=== PATIENT | female | born 1930 | race Caucasian/White ===

== ENCOUNTER 2017-11-05 14:31 | Inpatient (IN) | payer MEDICARE, MEDICAID ==
[2017-11-05 14:31] VITALS: BMI 28.3
--- NOTE | 2017-11-05 14:57 | ED PDOC ---
Arrival/HPI - General Chief Complaint: GI Problem Time Seen by Provider: 11/05/17 14:39 Historian: Patient, Family - History of Present Illness Narrative History of Present Illness (Text): 87 year old female presents with episodes on NBNB vomiting last night around 10pm, decreased appetite, and abdominal pain. Patient also has some mild shortness of breath which began last night. Currently she states she is nauseas. Patient denies chest pain, fever, chills, or any other complains. 11/05/17 15:25 Time/Duration: 24 hours Symptom Onset: Gradual Past Medical History - Provider Review Nursing Documentation Reviewed: Yes - Infectious Disease Hx of Infectious Diseases: None - Tetanus Immunization Tetanus Immunization: Unknown - Cardiac Hx Congestive Heart Failure: Yes - Pulmonary Hx Asthma: Yes Hx Chronic Obstructive Pulmonary Disease (COPD): Yes - Neurological Hx Dementia: Yes Hx Migraine: Yes Hx Seizures: Yes (on Depakote) - HEENT Hx HEENT Disorder: No - Renal Hx Renal Disorder: No - Endocrine/Metabolic Hx Endocrine Disorders: No - Hematological/Oncological Hx Blood Disorders: No - Integumentary Hx Dermatological Disorder: No - Musculoskeletal/Rheumatological Hx Unsteady Gait: Yes Other/Comment: Recent falls - Gastrointestinal Hx Gastrointestinal Disorders: No - Genitourinary/Gynecological Hx Incontinence: Yes - Psychiatric Hx Anxiety: Yes Hx Depression: Yes Hx Schizophrenia: Yes Hx Substance Use: No - Surgical History Hx Eye Surgery: Yes Hx Orthopedic Surgery: Yes (left shldr, left hand) Other/Comment: Hernia repair - Anesthesia Hx Anesthesia Reactions: No Hx Malignant Hyperthermia: No - Suicidal Assessment Feels Threatened In Home Enviroment: No Family/Social History - Physician Review Nursing Documentation Reviewed: Yes Family/Social History: No Known Family HX Smoking Status: Never Smoked Hx Alcohol Use: No Hx Substance Use: No Hx Substance Use Treatment: No Allergies/Home Meds Allergies/Adverse Reactions: Allergies moxifloxacin Allergy (Verified 11/05/17 14:43) ITCHING Home Medications: Home Meds Medication Instructions Recorded Confirmed Divalproex [Depakote] 250 mg PO BID 01/18/12 08/06/15 Ezetimibe [Zetia] 10 mg PO DAILY 01/18/12 08/06/15 Memantine [Namenda] 10 mg PO BID 01/18/12 08/06/15 Carvedilol [Coreg] 3.125 mg PO DAILY 07/14/12 08/06/15 Albuterol Sulfate [Proair Hfa] 0.09 mg IH Q4 PRN 09/11/12 08/06/15 Ipratropium/Albuterol Sulfate 1 units NEB Q4 PRN 09/11/12 08/06/15 [Duoneb 3 mg/3 ml-0.5 mg/3 ml 3 ml] ARIPiprazole [Abilify] 5 mg PO DAILY 08/06/15 08/06/15 Clonazepam [Klonopin] 0.5 mg PO HS 08/06/15 08/06/15 Furosemide [Lasix] 40 mg PO DAILY 08/06/15 08/06/15 Isosorbide Dinitrate [Isosorbide 30 mg PO DAILY 08/06/15 08/06/15 Dinitrate] Losartan [Cozaar] 25 mg PO DAILY 08/06/15 08/06/15 Pantoprazole [Protonix EC Tab] 40 mg PO DAILY 08/06/15 08/06/15 Sertraline HCl [Zoloft] 75 mg PO DAILY 08/06/15 08/06/15 Solifenacin Succinate [Vesicare] 10 mg PO DAILY 08/06/15 08/06/15 Review of Systems - Review of Systems Constitutional: Normal. absent: Fatigue, Fevers Eyes: Normal. absent: Vision Changes, Photophobia ENT: Normal Respiratory: SOB. absent: Cough Cardiovascular: absent: Chest Pain, Palpitations Gastrointestinal: Abdominal Pain, Nausea, Vomiting. absent: Diarrhea, Hematochezia, Hematemesis Genitourinary Female: Normal Musculoskeletal: Normal Skin: Normal Neurological: Normal Physical Exam Vital Signs Reviewed: Yes Vital Signs Temp Pulse Resp BP Pulse Ox 11/05/17 17:22 76 18 126/66 93 L 11/05/17 15:45 86 18 99/61 L 92 L 11/05/17 14:37 98.7 F 99 H 17 112/71 94 L 11/05/17 14:31 98.7 F 99 H 17 112/71 94 L Temperature: Afebrile Blood Pressure: Normal Pulse: Tachycardic Respiratory Rate: Normal Appearance: Positive for: Well-Appearing, Non-Toxic, Comfortable Pain Distress: None Mental Status: Positive for: Alert and Oriented X 3 - Systems Exam Head: Present: Atraumatic, Normocephalic Pupils: Present: PERRL Extroacular Muscles: Present: EOMI Conjunctiva: Present: Normal Mouth: Present: Moist Mucous Membranes Neck: Present: Normal Range of Motion Respiratory/Chest: Present: Good Air Exchange, Other (crakcles) Cardiovascular: Present: Regular Rate and Rhythm, Normal S1, S2 Abdomen: Present: Tenderness. No: Distention, Guarding Upper Extremity: No: Edema Lower Extremity: No: Edema Neurological: Present: GCS=15, CN II-XII Intact Psychiatric: Present: Alert, Oriented x 3 Medical Decision Making ED Course and Treatment: Plan -CBC, CMP, BNP, Cardiac ISO -EKG, Chest xray 11/05/17 15:47 Chest xray showing no active disease CT pending abdomen pelvis 11/05/17 16:36 CT abdomen and pelvis shows distended gallbladder with pericholecystic fluid 11/05/17 17:47 Patient will be admitted to Hospitalist, spoke to Dr. King. Surgery, Dr. Soriano consulted, vice president medical affairs Adenike contacted and will see patient 11/05/17 18:04 - Lab Interpretations Lab Results: 11/05/17 15:30 11/05/17 15:30 Lab Results 11/05/17 17:18: Urine Color Yellow, Urine Appearance Clear, Urine pH 7.5, Ur Specific [place] 1.010, Urine Protein Negative, Urine Glucose (UA) Negative, Urine Ketones Negative, Urine Blood Trace-intact H, Urine Nitrate Negative, Urine Bilirubin Negative, Urine Urobilinogen 0.2, Ur Leukocyte Esterase Negative , Urine RBC 2 - 5, Urine WBC 0 - 2, Ur Epithelial Cells 3 - 4, Urine Bacteria Few 11/05/17 15:30: Valproic Acid 16 L 11/05/17 15:30: Sodium 143, Potassium 3.9, Chloride 103, Carbon Dioxide 28, Anion Gap 15, BUN 13, Creatinine 0.6 L, Est GFR ( Amer) > 60, Est GFR ( Non-Af Amer) > 60, Random Glucose 103, Calcium 9.1, Magnesium 1.8, Total Bilirubin 0.5, AST 29, ALT 22, Alkaline Phosphatase 76, Lactate Dehydrogenase 465, Total Creatine Kinase 55, Troponin I < 0.01, NT-Pro-B Natriuret Pep 776 H, Total Protein 7.5, Albumin 4.0, Globulin 3.5, Albumin/Globulin Ratio 1.1, Lipase 11 L 11/05/17 15:30: PT 11.9, INR 1.04, APTT 24.8 L 11/05/17 15:30: WBC 13.9 H D, RBC 4.54, Hgb 13.8, Hct 41.6, MCV 91.6, MCH 30.4, MCHC 33.2, RDW 14.4, Plt Count 214, MPV 10.1, Gran % 64.1, Lymph % (Auto) 26.3, [place] % (Auto) 9.4 H, Eos % (Auto) 0.1 L, Baso % (Auto) 0.1, Gran # 8.90 H, Lymph # (Auto) 3.7 H, [place] # (Auto) 1.3 H, Eos # (Auto) 0.0, Baso # (Auto) 0.01 - RAD Interpretation Radiology Orders: 11/05/17 15:14 CHEST PORTABLE [RAD] Stat 11/05/17 16:10 ABD & PELVIS IV CONTRAST ONLY [CT] Stat - Medication Orders Current Medication Orders: Piperacillin Sod/Tazobactam Sod (Zosyn 3.375 In Ns 100ml) 100 mls @ 200 mls/hr IVPB STAT STA PRN Reason: Protocol Stop: 11/05/17 18:11 Discontinued Medications Sodium Chloride (Sodium Chloride 0.9%) 500 mls @ 999 mls/hr IV .Q31M STA Stop: 11/05/17 16:11 Last Admin: 11/05/17 16:15 Dose: 999 mls/hr eMAR Start Stop Document 11/05/17 16:15 OCS (Rec: 11/05/17 16:35 OCS [id number]) Intravenous Solution Start Date 11/05/17 Start Time 16:00 End Date 11/05/17 End time 16:30 Total Infusion Time 30 Ondansetron HCl (Zofran Inj) 4 mg IVP STAT STA Stop: 11/05/17 15:16 Last Admin: 11/05/17 15:29 Dose: 4 mg IVP Administration Document 11/05/17 15:29 SRE (Rec: 11/05/17 15:29 SRE [id number]) Charges for Administration # of IVP Administrations 1 Pantoprazole Sodium (Protonix Inj) 40 mg IVP STAT STA Stop: 11/05/17 15:29 Last Admin: 11/05/17 15:39 Dose: 40 mg IVP Administration Document 11/05/17 15:39 SRE (Rec: 11/05/17 15:40 SRE [id number]) Charges for Administration # of IVP Administrations 1 Disposition/Present on Arrival - Present on Arrival Any Indicators Present on Arrival: No History of DVT/PE: No History of Uncontrolled Diabetes: No Urinary Catheter: No History of Decub. Ulcer: No History Surgical Site Infection Following: None - Disposition Have Diagnosis and Disposition been Completed?: Yes Diagnosis: Cholecystitis Disposition: HOSPITALIZED Disposition Time: 18:06 Condition: FAIR Forms: [employer] (Thai)
[2017-11-05] MEDS ORDERED: Sodium Chloride 0.9% 500 ML IV STA (15:41)
[2017-11-05 15:50] LABS: BASO # 0.01 K/mm3 (0.0-2.0); BASO % 0.1 % (0.0-3.0); EOS % 0.1 % (1.5-5.0); GRAN # 8.9 (1.4-6.5); GRAN % 64.1 % (50.0-68.0); HEMOGLOBIN 13.8 g/dL (12.0-16.0); LYMPH # 3.7 (1.2-3.4); LYMPH % 26.3 % (22.0-35.0); MEAN CELL VOLUME 91.6 fl (80.0-105.0); MEAN CORPUSCULAR HEMOGLOBIN 30.4 pg (25.0-35.0); MEAN CORPUSCULAR HGB CONC 33.2 g/dl (31.0-37.0); MEAN PLATELET VOLUME 10.1 fl (7.0-11.0); MONO # 1.3 (0.1-0.6); MONO % 9.4 % (1.0-6.0); RBC 4.54 10^6/uL (3.5-6.1); RED CELL DISTRIBUTION WIDTH 14.4 % (11.5-14.5); WHITE BLOOD COUNT 13.9 10^3/ul (4.5-11.0)
[2017-11-05 15:52] LABS: ALB/GLOB RATIO 1.1 (1.1-1.8); ALT/SGPT 22 U/L (7-56); AST/SGOT 29 U/L (14-36); BLOOD UREA NITROGEN 13 mg/dL (7-21); CALCIUM 9.1 mg/dL (8.4-10.5); GFR AFRICAN-AMERICAN > 60; GFR NON-AFRICAN AMERICAN > 60
[2017-11-05 16:03] LABS: B-TYPE NATRIURETIC PEPTIDE 776 pg/mL (0-450); TROPONIN I < 0.01 ng/mL
[2017-11-05 16:04] LABS: INR 1.04 (0.93-1.08); PARTIAL THROMBOPLASTIN TIME 24.8 Seconds (25.1-36.5); PROTHROMBIN TIME 11.9 SECONDS (9.4-12.5)
[2017-11-05 16:06] LABS: LIPASE 11 U/L (23-300)
--- NOTE | 2017-11-05 16:13 | RAD ---
HISTORY: abd pain sob COMPARISON: 12/19/2012 FINDINGS: LUNGS: No active pulmonary disease. PLEURA: No significant pleural effusion identified, no pneumothorax apparent. CARDIOVASCULAR: Normal. OSSEOUS STRUCTURES: No significant abnormalities. VISUALIZED UPPER ABDOMEN: Normal. OTHER FINDINGS: None. IMPRESSION: No active disease.
[2017-11-05] MEDS ORDERED: Iohexol 350 MG/100 ML VIAL ONE (16:24)
[2017-11-05 17:33] LABS: PH,URINE 7.5 (4.7-8.0); URINE BILIRUBIN NEGATIVE (NEGATIVE); URINE BLOOD TRACE-INTACT (NEGATIVE); URINE GLUCOSE (UA) NEGATIVE (NEGATIVE); URINE LEUKOCYTE ESTERASE NEGATIVE Leu/uL (NEGATIVE); URINE PROTEIN NEGATIVE mg/dL (<30 mg/dL); URINE UROBILINOGEN 0.2 E.U./dL (<1 E.U./dL)
[2017-11-05 17:34] LABS: URINE APPEARANCE CLEAR (CLEAR); URINE COLOR YELLOW (YELLOW)
[2017-11-05 17:36] LABS: URINE BACTERIA FEW (NEG); URINE WBC 0 - 2 /hpf (0-6)
[2017-11-05] MEDS ORDERED: Piperacillin/Tazobact 3.375 gm 100 ML IVPB STA (17:42)
--- NOTE | 2017-11-05 17:43 | CT ---
PROCEDURE: CT Abdomen and Pelvis with contrast HISTORY: Abdominal pain and vomiting. COMPARISON: 01/24/2012 abdominal ultrasound TECHNIQUE: Contrast dose: 100 cc Omnipaque 350. Radiation dose: Total exam DLP = 783.22 mGy-cm. This CT exam was performed using one or more of the following dose reduction techniques: Automated exposure control, adjustment of the mA and/or kV according to patient size, and/or use of iterative reconstruction technique. FINDINGS: LOWER THORAX: Unremarkable. LIVER: Unremarkable. No gross lesion or ductal dilatation. GALLBLADDER AND BILE DUCTS: Distended Gallbladder, small gallbladder calculi identified. Trace pericholecystic fluid noted. PANCREAS: Unremarkable. No gross lesion or ductal dilatation. SPLEEN: Unremarkable. ADRENALS: Unremarkable. No mass. KIDNEYS AND URETERS: Unremarkable. No hydronephrosis. No solid mass. Incidental finding(s): Innumerable bilateral renal cysts the largest in the lower pole of the left kidney measures 5.1 x 6 cm with peripheral rim of calcification. VASCULATURE: Unremarkable. No aortic aneurysm. BOWEL: Unremarkable. No obstruction. No gross mural thickening. APPENDIX: Normal appendix. PERITONEUM: Unremarkable. No free fluid. No free air. LYMPH NODES: Unremarkable. No enlarged lymph nodes. BLADDER: Unremarkable. REPRODUCTIVE: Unremarkable. BONES: No acute fracture. Multilevel degenerative changes. OTHER FINDINGS: None. IMPRESSION: Distended gallbladder, trace pericholecystic fluid. Gallstones identified, confirmed on a prior ultrasound 01/24/2012. Additional benign and/or incidental findings described above.
--- NOTE | 2017-11-05 18:59 | CP.PCM.CON ---
History of Present Illness - History of Present Illness History of Present Illness: General surgery consult note for Dr. Modesto Jeong, PGY-1 Pt S & E at bedside at 1815 87F w/PMH sig for cholelithiasis consulted for abdominal pain x 1 month. Pain is epigastric, non radiating, intermittent, "strong" usually occurring after eating ice cream +/- cake in the evenings, also worsened when constipated. Admits to nightly emesis as well. On evening ART DIRECTOR, pt had multiple episodes of emesis lasting for 5 hrs (food stuff, then nb, bilious). Pt was given seltzer water without relief. Admits to chronic constipation (BM every 1-2 weeks on senna at home), urinary frequency. Denies F & C, chest pain, SOB, dysuria, hematuria, hematemesis, hematochezia, other complaints. In ED- CT abdomen w/distended gallbladder, trace pericholecystic fluid. Gallstones identified, confirmed on a prior ultrasound 01/24/2012. Mild leukocytosis of 13.9. Afebrile. LFTs WNL. PMH: Cholelithiasis, CHF, COPD/asthma, recurrent UTIs, emphysema, depression, HLD, dementia, seizure d/o, hypothyroidism PSH: Ventral hernia repair, Left inguinal hernia repair, left shoulder sx, left hand sx All: Moxifloxacin SH: Hx tobacco use, hx ETOH use, denies illicit drug use; lives with daughter PMD: Tracy Ramsey Review of Systems - Review of Systems All systems: reviewed and no additional remarkable complaints except - Constitutional Constitutional: absent: Chills, Fever - EENT Ears: absent: Dizziness Nose/Mouth/Throat: absent: Sore Throat - Cardiovascular Cardiovascular: absent: Chest Pain - Respiratory Respiratory: absent: Cough - Gastrointestinal Gastrointestinal: Abdominal Pain, Constipation, Nausea, Vomiting. absent: Change in Bowel Habits, Cramping, Diarrhea, Hematemesis, Hematochezia, Melena - Genitourinary Genitourinary: Urinary Frequency. absent: Dysuria, Hematuria - Musculoskeletal Musculoskeletal: absent: Back Pain - Integumentary Integumentary: absent: Rash - Neurological Neurological: absent: Dizziness, Weakness - Psychiatric Psychiatric: absent: Change in Appetite Past Patient History - Infectious Disease Hx of Infectious Diseases: None - Tetanus Immunizations Tetanus Immunization: Unknown - Past Social History Smoking Status: Never Smoked - CARDIAC Hx Congestive Heart Failure: Yes - PULMONARY Hx Asthma: Yes Hx Chronic Obstructive Pulmonary Disease (COPD): Yes - NEUROLOGICAL Hx Dementia: Yes Hx Migraine: Yes Hx Seizures: Yes (on Depakote) - HEENT Hx HEENT Problems: No - RENAL Hx Chronic Kidney Disease: No - ENDOCRINE/METABOLIC Hx Endocrine Disorders: No - HEMATOLOGICAL/ONCOLOGICAL Hx Blood Disorders: No - INTEGUMENTARY Hx Dermatological Problems: No - MUSCULOSKELETAL/RHEUMATOLOGICAL Hx Unsteady Gait: Yes Other/Comment: Recent falls - GASTROINTESTINAL Hx Gastrointestinal Disorders: No - GENITOURINARY/GYNECOLOGICAL Hx Incontinence: Yes - PSYCHIATRIC Hx Anxiety: Yes Hx Depression: Yes Hx Schizophrenia: Yes Hx Substance Use: No - SURGICAL HISTORY Hx Eye Surgery: Yes Hx Orthopedic Surgery: Yes (left shldr, left hand) Other/Comment: Hernia repair - ANESTHESIA Hx Anesthesia Reactions: No Hx Malignant Hyperthermia: No Meds Allergies/Adverse Reactions: Allergies Allergy/AdvReac Type Severity Reaction Status Date / Time moxifloxacin Allergy ITCHING Verified 11/05/17 14:43 - Medications Medications: Current Medications Acetaminophen (Tylenol 325mg Tab) 650 mg PO Q6H PRN PRN Reason: Pain, moderate (4-7) Ondansetron HCl (Zofran Inj) 4 mg IVP Q6H PRN PRN Reason: Nausea/Vomiting Physical Exam - Constitutional Appears: Non-toxic, No Acute Distress - Head Exam Head Exam: ATRAUMATIC, NORMAL INSPECTION, NORMOCEPHALIC - Eye Exam Eye Exam: EOMI, Normal appearance - ENT Exam ENT Exam: Mucous Membranes Moist, Normal Exam - Neck Exam Neck exam: Positive for: Full Rom, Normal Inspection - Respiratory Exam Respiratory Exam: Clear to Auscultation Bilateral, NORMAL BREATHING PATTERN. absent: Rales, Rhonchi, Wheezes, Respiratory Distress - Cardiovascular Exam Cardiovascular Exam: REGULAR RHYTHM, +S1, +S2 - GI/Abdominal Exam GI & Abdominal Exam: Normal Bowel Sounds, Soft. absent: Distended (obese), Firm , Guarding, Hernia, Rebound, Rigid, Tenderness - Rectal Exam Rectal Exam: Hemorrhoids. absent: Fecal Impaction - Extremities Exam Extremities exam: Positive for: normal inspection. Negative for: pedal edema - Neurological Exam Neurological exam: Alert, CN II-XII Intact - Psychiatric Exam Psychiatric exam: Normal Affect, Normal Mood - Skin Skin Exam: Dry, Intact, Normal Color, Warm Additional comments: well healed midline upper abdominal scar, well healed left inguinal area scar Results - Vital Signs Recent Vital Signs: Last Vital Signs Temp 98.7 F 11/05/17 14:37 Pulse 76 11/05/17 17:22 Resp 18 11/05/17 17:22 BP 126/66 11/05/17 17:22 Pulse Ox 93 L 11/05/17 17:22 - Labs Result Diagrams: 11/05/17 15:30 11/05/17 15:30 Labs: Laboratory Results - last 24 hr 11/05/17 11/05/17 11/05/17 15:30 15:30 15:30 WBC 13.9 H D RBC 4.54 Hgb 13.8 Hct 41.6 MCV 91.6 MCH 30.4 MCHC 33.2 RDW 14.4 Plt Count 214 MPV 10.1 Gran % 64.1 Lymph % (Auto) 26.3 [place] % (Auto) 9.4 H Eos % (Auto) 0.1 L Baso % (Auto) 0.1 Gran # 8.90 H Lymph # (Auto) 3.7 H [place] # (Auto) 1.3 H Eos # (Auto) 0.0 Baso # (Auto) 0.01 PT 11.9 INR 1.04 APTT 24.8 L Sodium 143 Potassium 3.9 Chloride 103 Carbon Dioxide 28 Anion Gap 15 BUN 13 Creatinine 0.6 L Est GFR ( Amer) > 60 Est GFR (Non-Af Amer) > 60 Random Glucose 103 Calcium 9.1 Magnesium 1.8 Total Bilirubin 0.5 AST 29 ALT 22 Alkaline Phosphatase 76 Lactate Dehydrogenase 465 Total Creatine Kinase 55 Troponin I < 0.01 NT-Pro-B Natriuret Pep 776 H Total Protein 7.5 Albumin 4.0 Globulin 3.5 Albumin/Globulin Ratio 1.1 Lipase 11 L Urine Color Urine Appearance Urine pH Ur Specific [place] Urine Protein Urine Glucose (UA) Urine Ketones Urine Blood Urine Nitrate Urine Bilirubin Urine Urobilinogen Ur Leukocyte Esterase Urine RBC Urine WBC Ur Epithelial Cells Urine Bacteria Valproic Acid 11/05/17 11/05/17 15:30 17:18 WBC RBC Hgb Hct MCV MCH MCHC RDW Plt Count MPV Gran % Lymph % (Auto) [place] % (Auto) Eos % (Auto) Baso % (Auto) Gran # Lymph # (Auto) [place] # (Auto) Eos # (Auto) Baso # (Auto) PT INR APTT Sodium Potassium Chloride Carbon Dioxide Anion Gap BUN Creatinine Est GFR ( Amer) Est GFR (Non-Af Amer) Random Glucose Calcium Magnesium Total Bilirubin AST ALT Alkaline Phosphatase Lactate Dehydrogenase Total Creatine Kinase Troponin I NT-Pro-B Natriuret Pep Total Protein Albumin Globulin Albumin/Globulin Ratio Lipase Urine Color Yellow Urine Appearance Clear Urine pH 7.5 Ur Specific [place] 1.010 Urine Protein Negative Urine Glucose (UA) Negative Urine Ketones Negative Urine Blood Trace-intact H Urine Nitrate Negative Urine Bilirubin Negative Urine Urobilinogen 0.2 Ur Leukocyte Esterase Negative Urine RBC 2 - 5 Urine WBC 0 - 2 Ur Epithelial Cells 3 - 4 Urine Bacteria Few Valproic Acid 16 L Assessment & Plan - Assessment and Plan (Free Text) Assessment: 87F w/PMH sig for cholelithiasis consulted for abdominal pain due to symptomatic cholelithiasis Plan: FU Ab U/S ABx CLD Anti-emetic Pain control Further recs pending attending evaluation RADHA attending Adenike, PGY-1 - Date & Time Date: 11/05/17 Time: 19:30
--- NOTE | 2017-11-05 20:15 | CP.PCM.HP ---
<Giuseppe Guzman - Last Filed: 11/05/17 20:46> History of Present Illness - History of Present Illness History of Present Illness: CC: Mid epigastric/RUQ pain HPI: Patient is an 87 year old female with past medical history significant for cholelthisiasis, CHF unknown EF, COPD/asthma, recurrent UTIs, emphysema, depression, HLD, dementia, seizure disorder, and hypothyroidism who presents to [facility] ED with complaints of mid epigastric pain/right upper quadrant pain described as intermittent, non-radiating, associated with fatty meals. At time patient was unable to assign pain scale. Patient indicates nausea and vomiting episodes. Recently over past 12 hours patient described multiple vomiting episodes with production of non bilious non bloody vomit. Patient was able to tolerate some clear liquids and oral medications since worsening of pain. Patient denies chest pain, fever, chills, shortness of breath, dysuria, hematuria, hematemesis, hematochezia, weakness, orthopnea, swelling of lower extremities. In ED patient had abdominal pelvis CT showing distension of gallbladder, trace pericholecystic fluid, gallstones. As well as found to have slight leukocytosis of 13.9. Patient was given zosyn in ED. ECG showed LVH with HR of 90 bpm and left axis deviation. PMH: As above PSH: Ventral hernia repair, Left infuinal hernia repair, Left shoulder surgery, left hand surgery SOCHx: Tobacco: Former ETOH: Denies, ID: Denies, Lives currently with daughter who is POA ALL: Moxifloxacin MEDS: MAR reviewed PMD: Tracy Ramsey Present on Admission - Present on Admission Any Indicators Present on Admission: No Review of Systems - Review of Systems All systems: reviewed and no additional remarkable complaints except (as mentioned in HPI) Past Patient History - Infectious Disease Hx of Infectious Diseases: None - Tetanus Immunizations Tetanus Immunization: Unknown - Past Social History Smoking Status: Former Smoker Alcohol: None Drugs: Denies - CARDIAC Hx Congestive Heart Failure: Yes - PULMONARY Hx Asthma: Yes Hx Chronic Obstructive Pulmonary Disease (COPD): Yes - NEUROLOGICAL Hx Dementia: Yes Hx Migraine: Yes Hx Seizures: Yes (on Depakote) - HEENT Hx HEENT Problems: No - RENAL Hx Chronic Kidney Disease: No - ENDOCRINE/METABOLIC Hx Endocrine Disorders: No - HEMATOLOGICAL/ONCOLOGICAL Hx Blood Disorders: No - INTEGUMENTARY Hx Dermatological Problems: No - MUSCULOSKELETAL/RHEUMATOLOGICAL Hx Unsteady Gait: Yes Other/Comment: Recent falls - GASTROINTESTINAL Hx Gastrointestinal Disorders: No - GENITOURINARY/GYNECOLOGICAL Hx Incontinence: Yes - PSYCHIATRIC Hx Anxiety: Yes Hx Depression: Yes Hx Schizophrenia: Yes Hx Substance Use: No - SURGICAL HISTORY Hx Eye Surgery: Yes Hx Orthopedic Surgery: Yes (left shldr, left hand) Other/Comment: Hernia repair - ANESTHESIA Hx Anesthesia Reactions: No Hx Malignant Hyperthermia: No Meds Allergies/Adverse Reactions: Allergies Allergy/AdvReac Type Severity Reaction Status Date / Time moxifloxacin Allergy ITCHING Verified 11/05/17 14:43 Physical Exam - Constitutional Appears: Non-toxic, No Acute Distress - Head Exam Head Exam: ATRAUMATIC, NORMAL INSPECTION, NORMOCEPHALIC - Eye Exam Eye Exam: EOMI, PERRL - Neck Exam Neck exam: Positive for: Full Rom. Negative for: Lymphadenopathy, Meningismus - Respiratory Exam Respiratory Exam: Clear to Auscultation Bilateral, Rales (mild), NORMAL BREATHING PATTERN. absent: Rhonchi, Wheezes - Cardiovascular Exam Cardiovascular Exam: REGULAR RHYTHM, +S1, +S2 - GI/Abdominal Exam GI & Abdominal Exam: Normal Bowel Sounds, Soft, Tenderness (mid epigastric, RUQ with palpation ). absent: Distended, Firm, Guarding, Rigid - Extremities Exam Extremities exam: Positive for: normal capillary refill, pedal pulses present. Negative for: calf tenderness, pedal edema, tenderness - Back Exam Back exam: absent: CVA tenderness (L), CVA tenderness (R) - Neurological Exam Neurological exam: Alert, Oriented x3 Additional comments: Motor and sensory grossly intact - Psychiatric Exam Psychiatric exam: Normal Affect, Normal Mood - Skin Skin Exam: Dry, Warm Results - Vital Signs Recent Vital Signs: Last Vital Signs Temp 98.7 F 11/05/17 14:37 Pulse 76 11/05/17 17:22 Resp 18 11/05/17 17:22 BP 126/66 11/05/17 17:22 Pulse Ox 93 L 11/05/17 17:22 - Labs Result Diagrams: 11/05/17 15:30 11/05/17 15:30 Assessment & Plan - Assessment and Plan (Free Text) Assessment: 87 year old female with past medical history significant for cholelthisiasis, CHF unknown EF, COPD/asthma, recurrent UTIs, emphysema, depression, HLD, dementia, seizure disorder, and hypothyroidism with symptomatic cholelithiasis, mild leukocytosis and abdominal/pelvis CT evidence of gallbladder distention, trace pericholecystic fluid and gallstones. General surgery is consulted as well as Infectious disease. Plan: Cholelithiasis with cholecystitis - Abdominal/Pelvis CT: Gallbladder distention, trace pericholecystic fluid, gallstones - Elevated WBC of 13.9 - Tenderness to palpation of RUQ/mid epigastric area - General Surgery consult - Abdominal US - Diet clear liquids - Zosyn and MILLER abx - ID consult - NPO after midnight - Zofran 4mg Q4H Hx of CHF with unknown ejection fraction - Patient family unsure of last known EF - CXR showing no acute process - EKG showing LVH, LAD, NSR 90 bpm - Echocardiogram - Lasix IV 20mg ONCE - Aspirin, Lisinopril 5mg, Metoprolol 12.5mg BID, Lasix 20mg Daily, Lipitor 10mg Daily - I and O Hx of Seizure disorder - Continue home medication - monitor Hx of COPD - Unknown PFT value - No home medications provided - Duoneb Q6H prn SOB - NC 2L SaO2 goal >92% Hx of Hypothyroidism - Not currently on home medicaiton - TSH check Hx of HLD - Check lipid panel - Lipitor 10mg DVT/GI ppx - Lovenox 40mg Daily - Protonix IVP 40mg Daily Case and plan discussed with attending - Date & Time Date: 11/05/17 Time: 20:14 <Christy Delgado - Last Filed: 11/05/17 23:58> Results - Vital Signs Recent Vital Signs: Last Vital Signs Temp 98.7 F 11/05/17 14:37 Pulse 76 11/05/17 17:22 Resp 20 11/05/17 20:28 BP 129/69 11/05/17 19:53 Pulse Ox 97 11/05/17 20:28 - Labs Result Diagrams: 11/05/17 15:30 11/05/17 15:30 Attending/Attestation - Attestation I have personally seen and examined this patient.: Yes I have fully participated in the care of the patient.: Yes I have reviewed all pertinent clinical information: Yes Notes (Text): 11/05/17 23:57 Agree with documentation and orders placed.
[2017-11-05] MEDS: metroNIDAZOLE IV 500 mg/100 ml 500 MG/100 ML BAG IVPB SCH (21:38)
[2017-11-05] MEDS ORDERED: Ciprofloxacin 400mg/200ml D5W 400 MG/200 ML BAG IVPB SCH (22:00)
[2017-11-06] MEDS ORDERED: Piperacillin/Tazobact 3.375 gm 100 ML IVPB SCH
[2017-11-06] MEDS: metroNIDAZOLE IV 500 mg/100 ml 500 MG/100 ML BAG IVPB SCH ×3 (05:29→21:49)
[2017-11-06] MEDS: Meropenem IV 1 gm in NS 50 ML IVPB SCH ×3 (05:29→21:49)
[2017-11-06 06:49] LABS: BASO # 0.01 K/mm3 (0.0-2.0); BASO % 0.1 % (0.0-3.0); EOS # 0.1 (0.0-0.7); EOS % 0.5 % (1.5-5.0); GRAN # 8.47 (1.4-6.5); GRAN % 63.2 % (50.0-68.0); HEMOGLOBIN 12.6 g/dL (12.0-16.0); LYMPH # 3.6 (1.2-3.4); LYMPH % 26.6 % (22.0-35.0); MEAN CELL VOLUME 92.3 fl (80.0-105.0); MEAN CORPUSCULAR HEMOGLOBIN 29.5 pg (25.0-35.0); MEAN PLATELET VOLUME 10.1 fl (7.0-11.0); MONO # 1.3 (0.1-0.6); MONO % 9.6 % (1.0-6.0); RBC 4.27 10^6/uL (3.5-6.1); RED CELL DISTRIBUTION WIDTH 14.9 % (11.5-14.5); WHITE BLOOD COUNT 13.4 10^3/ul (4.5-11.0)
[2017-11-06 07:02] LABS: ALB/GLOB RATIO 1.1 (1.1-1.8); ALBUMIN 3.5 g/dL (3.0-4.8); ALT/SGPT 22 U/L (7-56); AST/SGOT 27 U/L (14-36); BLOOD UREA NITROGEN 10 mg/dL (7-21); CALCIUM 8.9 mg/dL (8.4-10.5); GFR AFRICAN-AMERICAN > 60; GFR NON-AFRICAN AMERICAN > 60; HDL CHOLESTEROL 53 mg/dL (29-60)
[2017-11-06 07:10] LABS: LDL CHOLESTEROL 98 mg/dL (0-129)
--- NOTE | 2017-11-06 08:14 | CARD ---
APPROVED REPORT EKG Measurement Heart [id number] <Conclusion> Normal sinus rhythm Left axis deviation Left ventricular hypertrophy with repolarization abnormality Abnormal ECG
[2017-11-06] MEDS: Divalproex 250 mg DR (BID formulation) PO SCH ×2 (08:59→17:32)
[2017-11-06] MEDS: Enoxaparin 40 mg Syringe SC SCH (08:59)
--- NOTE | 2017-11-06 11:26 | US ---
HISTORY: epigastric pain COMPARISON: None. TECHNIQUE: Sonographic evaluation of the abdomen. FINDINGS: LIVER: Measures cm. Normal echogenicity of the liver parenchyma. No mass. No intrahepatic bile duct dilatation. GALLBLADDER: Cholelithiasis along with gallbladder sludge and pericholecystic fluid gallbladder wall thickening measuring up to 6 millimeters with wall edema suspicious for cholecystitis. COMMON BILE DUCT: Measures mm. No stones. No dilatation. PANCREAS: Unremarkable as visualized. No mass. No ductal dilatation. RIGHT KIDNEY: Measures cm. Normal echogenicity. No calculus, mass, or hydronephrosis. LEFT KIDNEY: Measures cm. Normal echogenicity. No calculus, mass, or hydronephrosis. SPLEEN: Normal in size and contour. No mass. AORTA: No aneurysmal dilatation. IVC: Unremarkable. OTHER FINDINGS: Multiple bilateral renal cysts the largest measuring 6.4 centimeters in the left lower pole. . IMPRESSION: Cholelithiasis along with gallbladder sludge and pericholecystic fluid gallbladder wall thickening measuring up to 6 millimeters with wall edema suspicious for cholecystitis.
--- NOTE | 2017-11-06 11:44 | CP.PCM.PN ---
Subjective - Date & Time of Evaluation Date of Evaluation: 11/06/17 Time of Evaluation: 10:00 - Subjective Subjective: Medicine Progress note Patient seen and examined at bedside this AM. Fever of 100.7 overnight. currently afebrile. Complaining of continued abdominal pain in RUQ. Some nausea , no vomiting. Denies chest pain, shortness of breath, diarrhea. Objective - Vital Signs/Intake and Output Vital Signs (last 24 hours): Temp Pulse Resp BP Pulse Ox 100.7 F H 86 20 121/70 97 11/06/17 08:14 11/06/17 08:55 11/06/17 08:14 11/06/17 08:59 11/06/17 08:14 Intake and Output: 11/06/17 11/06/17 06:59 18:59 Intake Total 240 0 Balance 240 0 - Medications Medications: Current Medications Acetaminophen (Tylenol 325mg Tab) 650 mg PO Q6H PRN PRN Reason: Pain, moderate (4-7) Last Admin: 11/06/17 05:28 Dose: 650 mg Atorvastatin Calcium (Lipitor) 10 mg PO DIN [facility] Last Admin: 11/05/17 21:38 Dose: 10 mg Divalproex Sodium (Depakote Dr (*Bid*)) 250 mg PO BID ANGIE PRN Reason: Protocol Last Admin: 11/06/17 08:59 Dose: 250 mg Enoxaparin Sodium (Lovenox) 40 mg SC DAILY ANGIE PRN Reason: Protocol Last Admin: 11/06/17 08:59 Dose: 40 mg Furosemide (Lasix) 20 mg IVP Q12 [facility] Metronidazole (Flagyl) 500 mg in 100 mls @ 100 mls/hr IVPB Q8 ANGIE PRN Reason: Protocol Last Admin: 11/06/17 05:29 Dose: 100 mls/hr Meropenem (Merrem Iv 1 Gm Premix) 50 mls @ 100 mls/hr IVPB Q8 ANGIE PRN Reason: Protocol Stop: 11/15/17 06:01 Last Admin: 11/06/17 05:29 Dose: 100 mls/hr Lisinopril (Zestril) 5 mg PO DAILY [facility] Metoprolol Tartrate (Lopressor) 12.5 mg PO 0800,1800 [facility] Last Admin: 11/06/17 08:55 Dose: 12.5 mg Mirtazapine (Remeron) 15 mg PO HS [facility] Last Admin: 11/05/17 21:38 Dose: 15 mg Ondansetron HCl (Zofran Inj) 4 mg IVP Q6H PRN PRN Reason: Nausea/Vomiting Sennosides (Senokot Tab) 8.6 mg PO DAILY [facility] Last Admin: 11/06/17 09:36 Dose: 8.6 mg - Labs Labs: 11/06/17 06:00 11/06/17 06:00 PT 11.9 SECONDS (9.4-12.5) 11/05/17 15:30 INR 1.04 (0.93-1.08) 11/05/17 15:30 APTT 24.8 Seconds (25.1-36.5) L 11/05/17 15:30 - Constitutional Appears: Non-toxic, No Acute Distress - Head Exam Head Exam: ATRAUMATIC - Eye Exam Eye Exam: EOMI, Scleral icterus - ENT Exam ENT Exam: Mucous Membranes Moist - Respiratory Exam Respiratory Exam: NORMAL BREATHING PATTERN. absent: Accessory Muscle Use, Rales , Rhonchi, Respiratory Distress - Cardiovascular Exam Cardiovascular Exam: REGULAR RHYTHM, +S1, +S2. absent: Bradycardia, Tachycardia - GI/Abdominal Exam GI & Abdominal Exam: Soft, Tenderness (TTP RUQ, +fragoso). absent: Distended, Firm, Guarding, Rigid, Rebound - Extremities Exam Extremities Exam: absent: Calf Tenderness - Neurological Exam Neurological Exam: Alert, Awake, Oriented x3 - Skin Skin Exam: Intact, Warm Assessment and Plan - Assessment and Plan (Free Text) Assessment: 87F pmhx for cholelithiasis, CHF, COPD/Asthma, recurrent UTI, HLD, seizure disorder, w/ leukocytosis suspected source of infection, gallbladder. Febrile 100.7 overnight, current resolved. On Merrem. CT evidence of gallbladder distention, pericholecystic fluid and gallstones. US shows thickened contracted gallbladder wall. Pre-operative risk Moderate, Jensen Class III risk. Plan: Cholelithiasis with cholecystitis - Abdominal/Pelvis CT: Gallbladder distention, trace pericholecystic fluid, gallstones - Abdominal US; thickened gallbladder wall, contracted - Leukocytosis 13.4 - Tenderness to palpation of RUQ/mid epigastric area - General Surgery consult; all recs appreciated - ID consult; all recs appreciated - Merrem - Zofran 4mg Q4H - Plan for IR Cholecystotomy tube placement today Hx of CHF with unknown ejection fraction - Patient family unsure of last known EF - CXR showing no acute process - EKG showing LVH, LAD, NSR 90 bpm - Echocardiogram- f/u results - Lasix IV BID 20mg - Aspirin, Lisinopril 5mg, Metoprolol 12.5mg BID, Lasix 20mg Daily, Lipitor 10mg Daily - I and O Hx of Seizure disorder - Continue home medication - monitor Hx of COPD - Unknown PFT value - No home medications provided - Duoneb Q6H prn SOB - NC 2L SaO2 goal >92% Hx of Hypothyroidism - Not currently on home medicaiton - TSH check Hx of HLD - Check lipid panel - Lipitor 10mg DVT/GI ppx - Lovenox 40mg Daily - Protonix IVP 40mg Daily case discussed with Dr. King attending [facility] PGY1
--- NOTE | 2017-11-06 12:38 | CP.PCM.PN ---
Subjective - Date & Time of Evaluation Date of Evaluation: 11/06/17 Time of Evaluation: 09:32 - Subjective Subjective: Darshan Magana PGY1 Surgery Progress Note for Dr. Soriano Patient was seen and examined bedside. She states that her pain has improved and denies n/v/d, f/c, chest pain. Objective - Vital Signs/Intake and Output Vital Signs (last 24 hours): Temp Pulse Resp BP Pulse Ox 100.7 F H 86 20 106/62 97 11/06/17 08:14 11/06/17 08:55 11/06/17 08:14 11/06/17 12:03 11/06/17 08:14 Intake and Output: 11/06/17 11/06/17 06:59 18:59 Intake Total 240 0 Balance 240 0 - Medications Medications: Current Medications Acetaminophen (Tylenol 325mg Tab) 650 mg PO Q6H PRN PRN Reason: Pain, moderate (4-7) Last Admin: 11/06/17 05:28 Dose: 650 mg Atorvastatin Calcium (Lipitor) 10 mg PO DIN [facility] Last Admin: 11/05/17 21:38 Dose: 10 mg Divalproex Sodium (Depakote Dr (*Bid*)) 250 mg PO BID ANGIE PRN Reason: Protocol Last Admin: 11/06/17 08:59 Dose: 250 mg Enoxaparin Sodium (Lovenox) 40 mg SC DAILY ANGIE PRN Reason: Protocol Last Admin: 11/06/17 08:59 Dose: 40 mg Furosemide (Lasix) 20 mg IVP Q12 [facility] Last Admin: 11/06/17 12:03 Dose: 20 mg Metronidazole (Flagyl) 500 mg in 100 mls @ 100 mls/hr IVPB Q8 ANGIE PRN Reason: Protocol Last Admin: 11/06/17 05:29 Dose: 100 mls/hr Meropenem (Merrem Iv 1 Gm Premix) 50 mls @ 100 mls/hr IVPB Q8 ANGIE PRN Reason: Protocol Stop: 11/15/17 06:01 Last Admin: 11/06/17 05:29 Dose: 100 mls/hr Lisinopril (Zestril) 5 mg PO DAILY [facility] Metoprolol Tartrate (Lopressor) 12.5 mg PO 0800,1800 [facility] Last Admin: 11/06/17 08:55 Dose: 12.5 mg Mirtazapine (Remeron) 15 mg PO HS [facility] Last Admin: 11/05/17 21:38 Dose: 15 mg Ondansetron HCl (Zofran Inj) 4 mg IVP Q6H PRN PRN Reason: Nausea/Vomiting Sennosides (Senokot Tab) 8.6 mg PO DAILY [facility] Last Admin: 11/06/17 09:36 Dose: 8.6 mg - Labs Labs: 11/06/17 06:00 11/06/17 06:00 PT 11.9 SECONDS (9.4-12.5) 11/05/17 15:30 INR 1.04 (0.93-1.08) 11/05/17 15:30 APTT 24.8 Seconds (25.1-36.5) L 11/05/17 15:30 - Additional Findings Additional findings: - Constitutional Appears: Non-toxic, No Acute Distress - Head Exam Head Exam: ATRAUMATIC, NORMAL INSPECTION, NORMOCEPHALIC - Eye Exam Eye Exam: EOMI, Normal appearance - ENT Exam ENT Exam: Mucous Membranes Moist, Normal Exam - Neck Exam Neck exam: Positive for: Full Rom, Normal Inspection - Respiratory Exam Respiratory Exam: Clear to Auscultation Bilateral, NORMAL BREATHING PATTERN. absent: Rales, Rhonchi, Wheezes, Respiratory Distress - Cardiovascular Exam Cardiovascular Exam: REGULAR RHYTHM, +S1, +S2 - GI/Abdominal Exam GI & Abdominal Exam: Normal Bowel Sounds, Soft. absent: Distended, Firm, Guarding, Hernia, Rebound, Rigid, Tenderness - Rectal Exam Rectal Exam: Hemorrhoids. absent: Fecal Impaction - Extremities Exam Extremities exam: Positive for: normal inspection. Negative for: pedal edema - Neurological Exam Neurological exam: Alert, CN II-XII Intact - Psychiatric Exam Psychiatric exam: Normal Affect, Normal Mood - Skin Skin Exam: Dry, Intact, Normal Color, Warm Additional comments: well healed midline upper abdominal scar, well healed left inguinal area scar Assessment and Plan - Assessment and Plan (Free Text) Assessment: 87yo F w/ a PMH for cholelithiasis consulted for abdominal pain due to symptomatic cholelithiasis CT abd showed distended gallbladder w/ trace pericholecystic fluid and cholelithiasis US showed cholelithiasis w/ GB sludge and pericholecystic fluid and wall thickening up to 6mm and edema Plan: NPO consult IR for cholecystostomy tube placement as patient is a poor candidate for OR due to multiple comorbidities if IR cannot place tubes, would consider cholecystectomy pending medical clearance cont abx per ID pain control further recs per attending Case was discussed and reviewed with Dr. Soriano
--- NOTE | 2017-11-06 14:41 | CON ---
DATE: 11/06/2017 HISTORY OF PRESENT ILLNESS: The patient is seen earlier today in room 362. She is complaining of abdominal pain and . She is an 87-year-old female with history of congestive heart failure and chronic obstructive lung disease, asthma, history of seizure, hypothyroidism, alcohol use and tobacco use, history of recurrent urinary tract infections and emphysema, depression, dementia, cholelithiasis who was admitted with abdominal pain and fevers, and associated with nausea and abdominal pain as recorded in the right side, right upper quadrant pain, dull in nature without radiation. No dysuria or frequency. No headache. REVIEW OF SYSTEMS: Reveals a 12-point review of systems performed. PAST MEDICAL HISTORY: Significant for congestive heart failure, COPD, asthma, recurrent urinary tract infection, emphysema, depression, dementia, cholelithiasis. PAST SURGICAL HISTORY: Significant for left hand surgery and left shoulder surgery. ALLERGIES: THE PATIENT IS ALLERGIC TO MOXIFLOXACIN. MEDICATIONS AT HOME: Reveals the patient to be on Zoloft and Protonix, Naprosyn, ranitidine, Cozaar, isosorbide, Lasix, Zetia and Depakote. PHYSICAL EXAMINATION: GENERAL: The patient is in bed in no acute distress, answering questions with a temperature of 100.7 and heart rate of 105, respiratory rate of 20, blood pressure is 120/70, it goes down to 99/61. HEENT: Examination is unremarkable. NECK: Supple. LUNGS: Have decreased breath sounds. HEART: Normal S1 and S2. No S3 or S4. No murmurs. ABDOMEN: Tender in the right upper quadrant. No rebound, no guarding, no masses. There is no CVA tenderness. LABORATORY DATA: Reveals the patient's white count is elevated at 13,900, hemoglobin of 13, platelets of 214. Coagulation is noted. Chemistry reveals the BUN of 13, creatinine of 0.6. Her BNP is 776. Urinalysis is noted. Toxicology is reviewed. Microbiology is reviewed and pending. The patient had a CAT of the abdomen and pelvis which reveals the distended gallbladder with pericholecystic fluid, gall stones identified. ASSESSMENT AND PLAN: This is an 87-year-old female who was seen earlier this morning on 362, bed 2 with congestive heart failure, chronic obstructive pulmonary disease, asthma, seizures, hypothyroidism, recurrent urinary tract infection, emphysema, presenting with fever, tachycardia, leukocytosis, O2 saturation of 92%. 1. Severe sepsis with acute cholecystitis. We will treat the patient with meropenem, pending GI consultation and surgical consultation and we will make further recommendations upon availability of initial culture results and workup results. Gera Burrows MD
[2017-11-06] MEDS ORDERED: Midazolam 2 MG/2 ML VIAL ONE (14:46)
[2017-11-06] MEDS ORDERED: Lidocaine 1% Inj (20ml) ONE (14:46)
[2017-11-06] MEDS ORDERED: Sodium Chloride 0.45% 1,000 ML IV SCH (16:15)
--- NOTE | 2017-11-06 17:49 | CT ---
PROCEDURE: CT-guided percutaneous cholecystostomy tube placement HISTORY: Acute on chronic cholecystitis. Poor surgical candidate. Needs percutaneous cholecystostomy tube. PHYSICIAN(S): Luis Jimenez MD. TECHNIQUE: The relative risks and indications for the procedure were explained to the patient and her family and informed consent obtained. The patient was placed in a supine position on the CT scanner and preliminary images through the upper abdomen performed. This revealed a distended gallbladder with wall thickening and pericholecystic fluid.. A right lateral approach was selected and the area prepped/draped in the usual sterile fashion. Conscious sedation and monitoring were provided throughout the procedure by nurse. An 18-gauge needle was advanced into the gallbladder and black bile aspirated. A microbiology specimen was sent. 0.035 guidewire was coiled in the gallbladder. Sequential dilatation was performed with subsequent placement of a 12 Portuguese pigtail drain in the gallbladder. Proximally 75 cc of thick black bile with debris was aspirated. The gallbladder was lavaged with normal saline. The tube was flushed and secured. The patient tolerated the procedure well. IMPRESSION: 1. CT-guided percutaneous cholecystostomy tube as described. 2. The gallbladder tube should remain for 6 weeks allow the soft tissue tract to mature before removal. Otherwise the gallbladder are can be removed in a point if clinically feasible
[2017-11-06] MEDS ORDERED: Morphine 2 mg/ml ISec IVP STA (17:55)
--- NOTE | 2017-11-06 18:26 | CARD ---
APPROVED REPORT EXAM: Two-dimensional and M-mode echocardiogram with Doppler and color Doppler. INDICATION Congestive Heart Failure 2D DIMENSIONS Left Atrium (2D)3.0 (1.6-4.0cm)IVSd1.3 (0.7-1.1cm) LVDd3.8 (3.9-5.9cm)PWd1.3 (0.7-1.1cm) LVDs2.6 (2.5-4.0cm)FS (%) 30.7 % LVEF (%)59.0 (>50%) M-Mode DIMENSIONS Aortic Root3.30 (2.2-3.7cm)Aortic Cusp Exc.1.30 (1.5-2.0cm) Aortic Valve AoV Peak Mlhzewbl203.0cm/Jacek Peak GR.16mmHg Mitral Valve MV E Hgkniasb84.4cm/sMV A Ohdgdopc02.5cm/sE/A ratio0.7 TDI E/Lateral E'0.0E/Medial E'0.0 Tricuspid Valve TR Peak [id number]/sRAP [id number] Peak Gr.27mmHg [id number] LEFT VENTRICLE The left ventricle is normal size. There is mild concentric left ventricular hypertrophy. The left ventricular function is normal.EF-55-60% There is normal LV segmental wall motion. Transmitral Doppler flow pattern is Grade III-reversible restrictive diastolic dysfunction. No left ventricle thrombus noted on this study. There is no ventricular septal defect visualized. There is no left ventricular aneurysm. There is no mass noted in the left ventricle. RIGHT VENTRICLE The right ventricle is normal size. There is normal right ventricular wall thickness. The right ventricular systolic function is normal. ATRIA The left atrium size is normal. The right atrium size is normal. The interatrial septum is intact with no evidence for an atrial septal defect. AORTIC VALVE The aortic valve is calcified and displays decreased opening. The aortic valve is moderately calcified. There is mild aortic regurgitation. There is mild valvular aortic stenosis Vs Aortic Sclerosis. There is no aortic valvular vegetation. MITRAL VALVE The mitral valve is thickened but opens well. Mitral annular calcification is moderate. Mitral regurgitation is trace. There is no mitral valve stenosis. There is no evidence of mitral valve prolapse. TRICUSPID VALVE The tricuspid valve leaflets are thickened , but open well. There is mild tricuspid regurgitation.RVSP-37 mmof Hg. There is no tricuspid valve stenosis. There is no tricuspid valve prolapse or vegetation. PULMONIC VALVE The pulmonic valve is mildly thickened. There is trace to mild pulmonic valvular regurgitation. There is no pulmonic valvular stenosis. GREAT VESSELS The aortic root is normal in size. The ascending aorta is normal in size. The pulmonary artery is normal. The IVC is normal in size and collapses >50% with inspiration. PERICARDIAL EFFUSION There is no pleural effusion. There is no pericardial effusion. <Conclusion> The left ventricle is normal size. There is mild concentric left ventricular hypertrophy. The left ventricular function is normal.EF-55-60% There is mild aortic regurgitation. There is mild valvular aortic stenosis Vs Aortic Sclerosis. Mitral regurgitation is trace. There is mild tricuspid regurgitation.RVSP-37 mmof Hg. There is trace to mild pulmonic valvular regurgitation. The IVC is normal in size and collapses >50% with inspiration. There is no pericardial effusion. no vegetation or thrombus noted.
[2017-11-06 20:54] LABS: BASO # 0.01 K/mm3 (0.0-2.0); BASO % 0.1 % (0.0-3.0); GRAN # 11.49 (1.4-6.5); GRAN % 78.5 % (50.0-68.0); HEMOGLOBIN 13.1 g/dL (12.0-16.0); LYMPH # 1.8 (1.2-3.4); MEAN CORPUSCULAR HEMOGLOBIN 29.4 pg (25.0-35.0); MEAN CORPUSCULAR HGB CONC 31.6 g/dl (31.0-37.0); MEAN PLATELET VOLUME 10.1 fl (7.0-11.0); MONO # 1.4 (0.1-0.6); MONO % 9.4 % (1.0-6.0); RBC 4.46 10^6/uL (3.5-6.1); RED CELL DISTRIBUTION WIDTH 14.7 % (11.5-14.5); WHITE BLOOD COUNT 14.6 10^3/ul (4.5-11.0)
[2017-11-07] MEDS: metroNIDAZOLE IV 500 mg/100 ml 500 MG/100 ML BAG IVPB SCH ×3 (05:43→21:20)
[2017-11-07] MEDS: Meropenem IV 1 gm in NS 50 ML IVPB SCH ×3 (05:46→21:20)
[2017-11-07 06:29] LABS: HEMOGLOBIN 13.2 g/dL (12.0-16.0); MEAN CORPUSCULAR HEMOGLOBIN 29.8 pg (25.0-35.0); MEAN PLATELET VOLUME 10.5 fl (7.0-11.0); RBC 4.43 10^6/uL (3.5-6.1); RED CELL DISTRIBUTION WIDTH 14.9 % (11.5-14.5); WHITE BLOOD COUNT 13.1 10^3/ul (4.5-11.0)
[2017-11-07 07:04] LABS: ALBUMIN 3.5 g/dL (3.0-4.8); ALT/SGPT 37 U/L (7-56); AST/SGOT 40 U/L (14-36); BLOOD UREA NITROGEN 18 mg/dL (7-21); CALCIUM 8.4 mg/dL (8.4-10.5); GFR AFRICAN-AMERICAN > 60; GFR NON-AFRICAN AMERICAN 59
--- NOTE | 2017-11-07 07:26 | CP.PCM.PN ---
Subjective - Date & Time of Evaluation Date of Evaluation: 11/07/17 Time of Evaluation: 07:24 - Subjective Subjective: Medicine Progress note Patient seen and examined at bedside this AM. pt s/p Cholecystostomy tube placement by IR yesterday. Fever of 101.4 last night. currently afebrile. No acute complaints. Tolerating CLD. Denies nausea, vomiting, chest pain shortness of breath. Bilious fluid in drain Objective - Vital Signs/Intake and Output Vital Signs (last 24 hours): Temp Pulse Resp BP Pulse Ox 100.1 F H 104 H 20 107/66 95 11/07/17 06:02 11/07/17 06:00 11/06/17 18:00 11/06/17 21:50 11/06/17 18:00 Intake and Output: 11/07/17 11/07/17 06:59 18:59 Intake Total 620 Output Total 100 Balance 520 - Medications Medications: Current Medications Acetaminophen (Tylenol 325mg Tab) 650 mg PO Q6H PRN PRN Reason: Pain, moderate (4-7) Last Admin: 11/07/17 06:02 Dose: 650 mg Atorvastatin Calcium (Lipitor) 10 mg PO DIN [facility] Last Admin: 11/06/17 17:32 Dose: 10 mg Divalproex Sodium (Depakote Dr (*Bid*)) 250 mg PO BID ANGIE PRN Reason: Protocol Last Admin: 11/06/17 17:32 Dose: 250 mg Enoxaparin Sodium (Lovenox) 40 mg SC DAILY ANGIE PRN Reason: Protocol Last Admin: 11/06/17 08:59 Dose: 40 mg Furosemide (Lasix) 20 mg IVP Q12 [facility] Last Admin: 11/06/17 21:50 Dose: 20 mg Metronidazole (Flagyl) 500 mg in 100 mls @ 100 mls/hr IVPB Q8 ANGIE PRN Reason: Protocol Last Admin: 11/07/17 05:43 Dose: 100 mls/hr Meropenem (Merrem Iv 1 Gm Premix) 50 mls @ 100 mls/hr IVPB Q8 ANGIE PRN Reason: Protocol Stop: 11/15/17 06:01 Last Admin: 11/07/17 05:46 Dose: 100 mls/hr Sodium Chloride (Sodium Chloride 0.45%) 1,000 mls @ 60 mls/hr IV .[id number] [facility] Stop: 11/07/17 12:00 Lisinopril (Zestril) 5 mg PO DAILY [facility] Metoprolol Tartrate (Lopressor) 12.5 mg PO 0800,1800 [facility] Last Admin: 11/06/17 17:32 Dose: 12.5 mg Mirtazapine (Remeron) 15 mg PO HS [facility] Last Admin: 11/06/17 21:49 Dose: 15 mg Ondansetron HCl (Zofran Inj) 4 mg IVP Q6H PRN PRN Reason: Nausea/Vomiting Last Admin: 11/06/17 16:30 Dose: 4 mg Sennosides (Senokot Tab) 8.6 mg PO DAILY [facility] Last Admin: 11/06/17 09:36 Dose: 8.6 mg - Labs Labs: 11/07/17 06:00 11/07/17 06:00 PT 11.9 SECONDS (9.4-12.5) 11/05/17 15:30 INR 1.04 (0.93-1.08) 11/05/17 15:30 APTT 24.8 Seconds (25.1-36.5) L 11/05/17 15:30 - Constitutional Appears: Non-toxic, No Acute Distress - Head Exam Head Exam: ATRAUMATIC - Eye Exam Eye Exam: EOMI. absent: Scleral icterus - ENT Exam ENT Exam: Mucous Membranes Moist - Respiratory Exam Respiratory Exam: NORMAL BREATHING PATTERN. absent: Accessory Muscle Use, Respiratory Distress - Cardiovascular Exam Cardiovascular Exam: REGULAR RHYTHM, +S1, +S2. absent: Bradycardia, Tachycardia - GI/Abdominal Exam GI & Abdominal Exam: Soft, Tenderness (tender around incision site). absent: Distended, Firm, Guarding, Rigid, Rebound - Extremities Exam Extremities Exam: absent: Calf Tenderness, Pedal Edema - Neurological Exam Neurological Exam: Awake. absent: Oriented x3 - Psychiatric Exam Psychiatric exam: Normal Affect - Skin Skin Exam: Intact, Warm Assessment and Plan - Assessment and Plan (Free Text) Assessment: 87F pmhx for cholelithiasis, CHF, COPD/Asthma, recurrent UTI, HLD, seizure disorder, w/ leukocytosis suspected source of infection, gallbladder. CT evidence of gallbladder distention, pericholecystic fluid and gallstones. US shows thickened contracted gallbladder wall. s/p cholecystostomy tube palcement by IR POD1. Febrile 101.4 overnight, current resolved. On Merrem. Plan: Cholelithiasis with cholecystitis - Abdominal/Pelvis CT: Gallbladder distention, trace pericholecystic fluid, gallstones - Abdominal US; thickened gallbladder wall, contracted - Leukocytosis trending down - Tenderness to palpation of RUQ/mid epigastric area - General Surgery consult; all recs appreciated - ID consult; all recs appreciated - Merrem - Zofran 4mg Q4H - s/p cholecystotomy tube POD1 by IR - excpect some fevers over the first 24 hours. - gentle flushes via tube BID - plan to keep drain in for 4-6weeks - advance to regular diet Hx of CHF - Repeat Echo shows EF >50% - CXR showing no acute process - EKG showing LVH, LAD, NSR 90 bpm - Lasix IV BID 20mg - Aspirin, Lisinopril 5mg, Metoprolol 12.5mg BID, Lasix 20mg Daily, Lipitor 10mg Daily - I and O Hx of Seizure disorder - Continue home medication - monitor Hx of COPD - Unknown PFT value - No home medications provided - Duoneb Q6H prn SOB - duoneb Q4H ANGIE - NC 2L SaO2 goal >92% Hx of Hypothyroidism - Not currently on home medicaiton - TSH check Hx of HLD - Check lipid panel - Lipitor 10mg DVT/GI ppx - Lovenox 40mg Daily - Protonix IVP 40mg Daily case discussed with Dr. King attending [facility] PGY1
--- NOTE | 2017-11-07 07:55 | CP.PCM.PN ---
Subjective - Date & Time of Evaluation Date of Evaluation: 11/07/17 Time of Evaluation: 06:53 - Subjective Subjective: Darshan Magana PGY1 Surgery Progress Note for Dr. Soriano Patient was seen and examined bedside. She is complaining of a mild headache, backpain and some nausea. Otherwise, she denies worsening abdominal pain, vomiting, fevers/chills, or chest pain. The cholecystostomy tube is in place and properly draining. Patient tolerating CLD. Objective - Vital Signs/Intake and Output Vital Signs (last 24 hours): Temp Pulse Resp BP Pulse Ox 98 F 96 H 20 99/59 L 93 L 11/07/17 07:52 11/07/17 07:52 11/07/17 07:52 11/07/17 07:52 11/07/17 07:52 Intake and Output: 11/07/17 11/07/17 06:59 18:59 Intake Total 620 Output Total 100 Balance 520 - Medications Medications: Current Medications Acetaminophen (Tylenol 325mg Tab) 650 mg PO Q6H PRN PRN Reason: Pain, moderate (4-7) Last Admin: 11/07/17 06:02 Dose: 650 mg Atorvastatin Calcium (Lipitor) 10 mg PO DIN ANGIE Last Admin: 11/06/17 17:32 Dose: 10 mg Divalproex Sodium (Depakote Dr (*Bid*)) 250 mg PO BID ANGIE PRN Reason: Protocol Last Admin: 11/06/17 17:32 Dose: 250 mg Enoxaparin Sodium (Lovenox) 40 mg SC DAILY ANGIE PRN Reason: Protocol Last Admin: 11/06/17 08:59 Dose: 40 mg Furosemide (Lasix) 20 mg IVP Q12 ANGIE Last Admin: 11/06/17 21:50 Dose: 20 mg Metronidazole (Flagyl) 500 mg in 100 mls @ 100 mls/hr IVPB Q8 ANGIE PRN Reason: Protocol Last Admin: 11/07/17 05:43 Dose: 100 mls/hr Meropenem (Merrem Iv 1 Gm Premix) 50 mls @ 100 mls/hr IVPB Q8 ANGIE PRN Reason: Protocol Stop: 11/15/17 06:01 Last Admin: 11/07/17 05:46 Dose: 100 mls/hr Sodium Chloride (Sodium Chloride 0.45%) 1,000 mls @ 60 mls/hr IV .[id number] [facility] Stop: 11/07/17 12:00 Lisinopril (Zestril) 5 mg PO DAILY [facility] Metoprolol Tartrate (Lopressor) 12.5 mg PO 0800,1800 [facility] Last Admin: 11/06/17 17:32 Dose: 12.5 mg Mirtazapine (Remeron) 15 mg PO HS [facility] Last Admin: 11/06/17 21:49 Dose: 15 mg Ondansetron HCl (Zofran Inj) 4 mg IVP Q6H PRN PRN Reason: Nausea/Vomiting Last Admin: 11/06/17 16:30 Dose: 4 mg Sennosides (Senokot Tab) 8.6 mg PO DAILY [facility] Last Admin: 11/06/17 09:36 Dose: 8.6 mg - Labs Labs: 11/07/17 06:00 11/07/17 06:00 PT 11.9 SECONDS (9.4-12.5) 11/05/17 15:30 INR 1.04 (0.93-1.08) 11/05/17 15:30 APTT 24.8 Seconds (25.1-36.5) L 11/05/17 15:30 - Constitutional Appears: Well, Non-toxic, No Acute Distress - Head Exam Head Exam: NORMAL INSPECTION - Eye Exam Eye Exam: Normal appearance - ENT Exam ENT Exam: Mucous Membranes Moist - Neck Exam Neck Exam: Normal Inspection - Respiratory Exam Respiratory Exam: NORMAL BREATHING PATTERN. absent: Wheezes - Cardiovascular Exam Cardiovascular Exam: RRR - GI/Abdominal Exam GI & Abdominal Exam: Soft, Tenderness (mild diffuse), Hypoactive Bowel Sounds. absent: Distended Additional comments: percutaneous cholecystostomy tube in place w/ <5cc maroon, green-tinged fluid - Extremities Exam Extremities Exam: Normal Inspection - Back Exam Back Exam: NORMAL INSPECTION - Neurological Exam Neurological Exam: Alert, Awake - Psychiatric Exam Psychiatric exam: Normal Mood - Skin Skin Exam: Warm Assessment and Plan - Assessment and Plan (Free Text) Assessment: 87yo F w/ a PMH for cholelithiasis consulted for abdominal pain due to symptomatic cholelithiasis. CT abd showed distended gallbladder w/ trace pericholecystic fluid and cholelithiasis and US showed cholelithiasis w/ GB sludge and pericholecystic fluid and wall thickening up to 6mm and edema. s/p percutaneous cholecystostomy tube placement on 11/06/17. Plan: Tolerating CLD Per IR, tube should remain for 6 weeks before removal As of this time, no surgical procedures as indicated; after 6 weeks, will discuss with family regarding either cholecystectomy vs removal of tube cont to monitor diet tolerance and advance appropriately cont to monitor output from tube cont abx per ID pain control further recs per attending Case was discussed and reviewed with Dr. Soriano
--- NOTE | 2017-11-07 08:21 | CON ---
DATE: 11/06/2017 CARDIOLOGY CONSULT REASON FOR CONSULTATION: Preoperative evaluation as well as hypertension and abnormal EKG. The patient is an 87-year-old female, who has a history of hypertension, presents because of nausea, vomiting and right upper quadrant pain. The patient denies any chest pain, but that she reports mild shortness of breath. SOCIAL HISTORY: The patient is nonsmoker. MEDICATIONS: Lipitor 10 mg once a day, Lopressor 12.5 mg twice a day, Lovenox 40 mg subcutaneously once a day, meropenem 1 g intravenously every 8 hours, Remeron 15 mg at bedtime, Zestril 5 mg once a day, Zofran 4 mg intravenously every 6 hours p.r.n. REVIEW OF SYSTEMS: The patient complains of left arm pain and weakness. She denies any retrosternal chest pain. She denies any dizziness. She ambulates fairly at home with a walker. PAST MEDICAL HISTORY: Hypertension, hyperlipidemia, and arthritis. PHYSICAL EXAMINATION: GENERAL: The patient is an elderly female, who does not appear to be in acute distress. VITAL SIGNS: Blood pressure 121/70, heart rate of 86, temperature 100.7, and respirations 20. HEENT: Normocephalic. CHEST: Clear. HEART: S1 and S2 regular. ABDOMEN: Right subcostal tenderness. EXTREMITIES: No edema. LABORATORY DATA: Hemoglobin and hematocrit 12.6 and 39.4, white count 15.4, platelet count 206,000. SMA-7 is within normal limits except for glucose of 119 and creatinine 0.6. Lipase is 11. TSH level within normal limit. Lipid profile is within normal limit. ProBNP 776. One set of troponin is negative. Abdomen and pelvis CT scan was consistent with distended gallbladder. Trace pericholecystic fluid. Gallstones identified. Abdominal ultrasound: Cholelithiasis along with gallbladder sludge and pericholecystic fluid, gallbladder wall thickening measuring up to 6 mm with wall edema, suspicious of cholecystitis. EKG revealed normal sinus rhythm, left axis deviation, LVH with repolarization changes. Cardiac catheterization performed in 2011 revealed nonobstructive coronary artery disease, endothelial dysfunction, mildly reduced EF. ASSESSMENT: 1. Acute calculus cholecystitis. 2. Hypertension. 3. Hyperlipidemia. 4. Moderate aortic insufficiency. RECOMMENDATIONS: I did review the echocardiography study, which revealed mild LVH with normal systolic function and moderate aortic insufficiency. The patient can undergo either cholecystectomy or cholecystostomy from the cardiac point of view with postoperative telemetry monitoring and resumption of beta-blockers postoperatively. Naman Jacob MD
[2017-11-07] MEDS: Divalproex 250 mg DR (BID formulation) PO SCH ×2 (09:29→17:09)
--- NOTE | 2017-11-07 10:12 | CON ---
DATE: 11/07/2017 HISTORY OF PRESENT ILLNESS: Holly Jones is seen. She is an 87-year-old difficult patient. Discussed the patient with the daughter who is concerned and the recycling manager. The patient is in with right upper quadrant pain. CAT scan I reviewed personally showing an inflamed, probably infected gallbladder with a stone, pericholecystic fluid. Had a low-grade temp and a white count of 13. Liver functions relatively normal. Lost her appetite. Increased shortness of breath, mild. Nausea without chest pain. PAST MEDICAL HISTORY: She has a history of COPD, congestive heart failure, dementia, depression, possibly schizophrenia, had a left-sided procedure with the left hand, had a hernia repair. MEDICATIONS: She is on multiple medications at home including Depakote, Zetia, , Coreg, ProAir, DuoNeb, Abilify, Klonopin, Lasix, isosorbide, Cozaar, Protonix, Zoloft and Vesicare. REVIEW OF SYSTEMS: Nothing else remarkable. There is no chest pain. Only mild shortness of breath. PHYSICAL EXAMINATION: Remarkable for, VITAL SIGNS: Temperature of 98, blood pressure of 100, pulse of 98. HEENT: Negative. CHEST: Clear. HEART: Without a murmur. ABDOMEN: Tender right upper quadrant without guarding or rebound. EXTREMITIES: No clubbing, cyanosis or edema. NEUROLOGICAL: Grossly normal except for her mental status, she is cooperative, understands things and adamantly refuses an operation. LABORATORY DATA: Liver functions are reviewed as well as the rest of the chart. IMPRESSION: Acute cholecystitis, probably necrotic. She is refusing an operation and even if we did an operation, I believe it would be an open because of the amount of inflammation. We will discuss with Dr. Luis Jimenez about doing an Interventional Radiology drain. Brennon Soriano MD
[2017-11-07] MEDS: Albuterol-Ipratrop 3 mg / 0.5 (3 ml) UD IH SCH ×3 (11:27→20:26)
--- NOTE | 2017-11-07 12:54 | PN ---
DATE: 11/07/2017 SUBJECTIVE: The patient underwent CT guided percutaneous cholecystostomy tube placement yesterday. She denies any chest pain or shortness of breath. No report of ventricular arrhythmia. PHYSICAL EXAMINATION: VITAL SIGNS: Blood pressure 99/59, heart rate 96, temperature 98, respirations 20. HEENT: Normocephalic. CHEST: Clear. HEART: S1, S2 regular. EXTREMITIES: No edema. LABORATORY DATA: Today's hemoglobin and hematocrit 13.2 and 41.2, white count 13.1, platelet count 101,000. The SMA-7 is within normal limits except for glucose of 114. ASSESSMENT: 1. Acute calculous cholecystitis. According to latest surgical evaluation by Dr. Soriano, probably necrotic gallbladder and the patient is refusing surgery. 2. Status post cholecystostomy. 3. Hypertension and hyperlipidemia. 4. Moderate aortic insufficiency. RECOMMENDATIONS: Continue current Lipitor 10 mg once a day, subcutaneous Lovenox 40 mg once a day, IV meropenem at 1 g every 8 hours, Zestril 5 mg daily. Obtain 12-lead EKG today. Naman Jacob MD
--- NOTE | 2017-11-07 13:46 | CARD ---
APPROVED REPORT EKG Measurement Heart [id number] ND [id number] [id number] <Conclusion> Normal sinus rhythm Left ventricular hypertrophy with repolarization abnormality Abnormal ECG
[2017-11-07 21:41] LABS: BASO # 0.02 K/mm3 (0.0-2.0); BASO % 0.2 % (0.0-3.0); EOS # 0.2 (0.0-0.7); EOS % 1.5 % (1.5-5.0); GRAN # 6.82 (1.4-6.5); GRAN % 51.1 % (50.0-68.0); HEMOGLOBIN 11.7 g/dL (12.0-16.0); LYMPH # 4.9 (1.2-3.4); LYMPH % 36.8 % (22.0-35.0); MEAN CELL VOLUME 94.1 fl (80.0-105.0); MEAN CORPUSCULAR HEMOGLOBIN 29.8 pg (25.0-35.0); MEAN CORPUSCULAR HGB CONC 31.7 g/dl (31.0-37.0); MEAN PLATELET VOLUME 10.2 fl (7.0-11.0); MONO # 1.4 (0.1-0.6); MONO % 10.4 % (1.0-6.0); RBC 3.92 10^6/uL (3.5-6.1); RED CELL DISTRIBUTION WIDTH 14.8 % (11.5-14.5); WHITE BLOOD COUNT 13.3 10^3/ul (4.5-11.0)
[2017-11-08] MEDS: Albuterol-Ipratrop 3 mg / 0.5 (3 ml) UD IH SCH ×5 (00:30→16:24)
--- NOTE | 2017-11-08 01:46 | PN ---
DATE: 11/07/2017 SUBJECTIVE: Patient is in bed, in no acute distress, nontoxic. PHYSICAL EXAMINATION: VITAL SIGNS: On exam, temperature is 98, blood pressure is 91/50, respiratory rate of 19. HEENT: Unremarkable. NECK: Supple. LUNGS: Have decreased breath sounds. HEART: Normal S1 and S2. ABDOMEN: Soft and nontender. LABORATORY EXAMINATION: Reveals a white count of 13,300, hemoglobin of 11, platelets of 188. Chemistry reveals a BUN of 18, creatinine of 0.8. Urinalysis is noted. Blood cultures are negative. Bile cultures have no growth. No fungal elements are seen. Review of orders reveals the patient to be on meropenem, on Flagyl. Patient had a CT-guided drain insertion by Dr. Luis Jimenez. Dr. Soriano's consultation is reviewed. Dr. Jacob's progress note is reviewed. ASSESSMENT AND PLAN: This is an 87-year-old female with a history of congestive heart failure, chronic obstructive lung disease, asthma, seizures, hypothyroidism, alcohol abuse, tobacco abuse, urinary tract infection, dementia, and cholelithiasis, admitted with: 1. Severe sepsis with acute cholecystitis, now has status post CAT scan guided cholecystostomy. 2. On meropenem, we will discontinue the Flagyl. Patient tolerated the procedure well and her antibiotics well. We will follow with you. Gera Burrows MD
[2017-11-08] MEDS: Meropenem IV 1 gm in NS 50 ML IVPB SCH ×2 (05:04→14:23)
[2017-11-08 06:56] LABS: ALBUMIN 3.2 g/dL (3.0-4.8); ALT/SGPT 25 U/L (7-56); AST/SGOT 26 U/L (14-36); BLOOD UREA NITROGEN 22 mg/dL (7-21); CALCIUM 8.5 mg/dL (8.4-10.5); GFR AFRICAN-AMERICAN > 60; GFR NON-AFRICAN AMERICAN > 60
--- NOTE | 2017-11-08 08:04 | CP.PCM.PN ---
Subjective - Date & Time of Evaluation Date of Evaluation: 11/08/17 Time of Evaluation: 07:04 - Subjective Subjective: Darshan Magana PGY1 Surgery Progress Note for Dr. Soriano Patient was seen and examined bedside. Patient complained of a headache overnight, and of abdominal discomfort this morning. she denies fevers/chills or n/v. The cholecystostomy tube is in place and properly draining. Patient tolerating her regular diet. Objective - Vital Signs/Intake and Output Vital Signs (last 24 hours): Temp Pulse Resp BP Pulse Ox 98.9 F 74 19 91/53 L 97 11/07/17 18:00 11/08/17 05:35 11/07/17 18:00 11/07/17 18:00 11/07/17 18:00 Intake and Output: 11/08/17 11/08/17 06:59 18:59 Intake Total 1420 Output Total 202 Balance 1218 - Medications Medications: Current Medications Acetaminophen (Tylenol 325mg Tab) 650 mg PO Q6H PRN PRN Reason: Pain, moderate (4-7) Last Admin: 11/08/17 00:12 Dose: 650 mg Albuterol/Ipratropium (Duoneb 3 Mg/0.5 Mg (3 Ml) Ud) 3 ml IH [id number] [facility] Last Admin: 11/08/17 07:39 Dose: 3 ml Atorvastatin Calcium (Lipitor) 10 mg PO DIN [facility] Last Admin: 11/07/17 17:09 Dose: 10 mg Divalproex Sodium (Depakote Dr (*Bid*)) 250 mg PO BID ANGIE PRN Reason: Protocol Last Admin: 11/07/17 17:09 Dose: 250 mg Docusate Sodium (Colace) 100 mg PO BID [facility] Last Admin: 11/07/17 17:07 Dose: 100 mg Enoxaparin Sodium (Lovenox) 40 mg SC DAILY ANGIE PRN Reason: Protocol Last Admin: 11/06/17 08:59 Dose: 40 mg Furosemide (Lasix) 20 mg IVP Q12 [facility] Last Admin: 11/07/17 21:19 Dose: Not Given Meropenem (Merrem Iv 1 Gm Premix) 50 mls @ 100 mls/hr IVPB Q8 ANGIE PRN Reason: Protocol Stop: 11/15/17 06:01 Last Admin: 11/08/17 05:04 Dose: 100 mls/hr Lisinopril (Zestril) 5 mg PO DAILY [facility] Metoprolol Tartrate (Lopressor) 12.5 mg PO 0800,1800 [facility] Last Admin: 11/07/17 17:10 Dose: Not Given Mirtazapine (Remeron) 15 mg PO HS [facility] Last Admin: 11/07/17 21:20 Dose: 15 mg Ondansetron HCl (Zofran Inj) 4 mg IVP Q6H PRN PRN Reason: Nausea/Vomiting Last Admin: 11/06/17 16:30 Dose: 4 mg Sennosides (Senokot Tab) 8.6 mg PO DAILY [facility] Last Admin: 11/07/17 09:35 Dose: 8.6 mg - Labs Labs: 11/07/17 21:32 11/08/17 05:30 PT 11.9 SECONDS (9.4-12.5) 11/05/17 15:30 INR 1.04 (0.93-1.08) 11/05/17 15:30 APTT 24.8 Seconds (25.1-36.5) L 11/05/17 15:30 - Additional Findings Additional findings: - Constitutional Appears: Well, Non-toxic, No Acute Distress - Head Exam Head Exam: NORMAL INSPECTION - Eye Exam Eye Exam: Normal appearance - ENT Exam ENT Exam: Mucous Membranes Moist - Neck Exam Neck Exam: Normal Inspection - Respiratory Exam Respiratory Exam: NORMAL BREATHING PATTERN. absent: Wheezes - Cardiovascular Exam Cardiovascular Exam: RRR - GI/Abdominal Exam GI & Abdominal Exam: Soft, Tenderness (mild diffuse), Hypoactive Bowel Sounds. absent: Distended Additional comments: percutaneous cholecystostomy tube in place w/ <5cc maroon, green-tinged fluid - Extremities Exam Extremities Exam: Normal Inspection - Back Exam Back Exam: NORMAL INSPECTION - Neurological Exam Neurological Exam: Alert, Awake - Psychiatric Exam Psychiatric exam: Normal Mood - Skin Skin Exam: Warm Assessment and Plan - Assessment and Plan (Free Text) Assessment: 87yo F w/ a PMH for cholelithiasis consulted for abdominal pain due to symptomatic cholelithiasis. CT abd showed distended gallbladder w/ trace pericholecystic fluid and cholelithiasis and US showed cholelithiasis w/ GB sludge and pericholecystic fluid and wall thickening up to 6mm and edema. s/p percutaneous cholecystostomy tube placement on 6/20/18. Plan: Tolerating HHD, monitor tolerance Per IR, tube should remain for 6 weeks before removal As of this time, no surgical procedures as indicated; after 6 weeks, will discuss with family regarding either cholecystectomy vs removal of tube cont to monitor output from tube culture of bile showed no growth x2 days cont abx per ID pain control further recs per attending Case was discussed and reviewed with Dr. Soriano
[2017-11-08] MEDS: Divalproex 250 mg DR (BID formulation) PO SCH ×2 (09:30→17:40)
[2017-11-08] MEDS: Enoxaparin 40 mg Syringe SC SCH (09:32)
[2017-11-08 10:37] LABS: BASO # 0.02 K/mm3 (0.0-2.0); BASO % 0.2 % (0.0-3.0); EOS # 0.3 (0.0-0.7); EOS % 2.3 % (1.5-5.0); GRAN # 5.67 (1.4-6.5); GRAN % 46.4 % (50.0-68.0); HEMOGLOBIN 12.3 g/dL (12.0-16.0); LYMPH # 5.1 (1.2-3.4); LYMPH % 41.4 % (22.0-35.0); MEAN CELL VOLUME 95.6 fl (80.0-105.0); MEAN CORPUSCULAR HEMOGLOBIN 29.9 pg (25.0-35.0); MEAN CORPUSCULAR HGB CONC 31.3 g/dl (31.0-37.0); MEAN PLATELET VOLUME 10.7 fl (7.0-11.0); MONO # 1.2 (0.1-0.6); MONO % 9.7 % (1.0-6.0); RBC 4.11 10^6/uL (3.5-6.1); RED CELL DISTRIBUTION WIDTH 14.9 % (11.5-14.5); WHITE BLOOD COUNT 12.2 10^3/ul (4.5-11.0)
--- NOTE | 2017-11-08 12:43 | CP.PCM.DIS ---
Provider - Provider Date of Admission: 11/05/17 18:04 Attending physician: Cruz King MD Hospital Course - Lab Results Lab Results: Micro Results 11/06/17 15:55 Bile Body Fluid Culture - Preliminary NO GROWTH AFTER 2 DAYS 11/06/17 15:55 Gallbladder Anaerobic Culture - Final NO ANAEROBES ISOLATED. 11/06/17 06:30 Blood Blood Culture - Preliminary NO GROWTH AFTER 48 HOURS 11/06/17 06:00 Blood Blood Culture - Preliminary NO GROWTH AFTER 48 HOURS 11/06/17 15:55 Other: Please Indicate Fungal Culture - Preliminary Most Recent Lab Values WBC 12.2 10^3/ul (4.5-11.0) H 11/08/17 10:30 RBC 4.11 10^6/uL (3.5-6.1) 11/08/17 10:30 Hgb 12.3 g/dL (12.0-16.0) 11/08/17 10:30 Hct 39.3 % (36.0-48.0) 11/08/17 10:30 MCV 95.6 fl (80.0-105.0) 11/08/17 10:30 MCH 29.9 pg (25.0-35.0) 11/08/17 10:30 MCHC 31.3 g/dl (31.0-37.0) 11/08/17 10:30 RDW 14.9 % (11.5-14.5) H 11/08/17 10:30 Plt Count 196 10^3/uL (120.0-450.0) 11/08/17 10:30 MPV 10.7 fl (7.0-11.0) 11/08/17 10:30 Gran % 46.4 % (50.0-68.0) L 11/08/17 10:30 Lymph % (Auto) 41.4 % (22.0-35.0) H 11/08/17 10:30 [place] % (Auto) 9.7 % (1.0-6.0) H 11/08/17 10:30 Eos % (Auto) 2.3 % (1.5-5.0) 11/08/17 10:30 Baso % (Auto) 0.2 % (0.0-3.0) 11/08/17 10:30 Gran # 5.67 (1.4-6.5) 11/08/17 10:30 Lymph # (Auto) 5.1 (1.2-3.4) H 11/08/17 10:30 [place] # (Auto) 1.2 (0.1-0.6) H 11/08/17 10:30 Eos # (Auto) 0.3 (0.0-0.7) 11/08/17 10:30 Baso # (Auto) 0.02 K/mm3 (0.0-2.0) 11/08/17 10:30 PT 11.9 SECONDS (9.4-12.5) 11/05/17 15:30 INR 1.04 (0.93-1.08) 11/05/17 15:30 APTT 24.8 Seconds (25.1-36.5) L 11/05/17 15:30 Sodium 143 mmol/L (132-148) 11/08/17 05:30 Potassium 4.5 mmol/L (3.6-5.0) 11/08/17 05:30 Chloride 101 mmol/L (98-107) 11/08/17 05:30 Carbon Dioxide 33 mmol/L (21-33) 11/08/17 05:30 Anion Gap 13 (10-20) 11/08/17 05:30 BUN 22 mg/dL (7-21) H 11/08/17 05:30 Creatinine 0.7 mg/dl (0.7-1.2) 11/08/17 05:30 Est GFR ( Amer) > 60 11/08/17 05:30 Est GFR (Non-Af Amer) > 60 11/08/17 05:30 Random Glucose 107 mg/dL (70-110) 11/08/17 05:30 Calcium 8.5 mg/dL (8.4-10.5) 11/08/17 05:30 Magnesium 1.8 mg/dL (1.7-2.2) 11/05/17 15:30 Total Bilirubin 0.4 mg/dL (0.2-1.3) 11/08/17 05:30 AST 26 U/L (14-36) 11/08/17 05:30 ALT 25 U/L (7-56) 11/08/17 05:30 Alkaline Phosphatase 67 U/L (38-126) 11/08/17 05:30 Lactate Dehydrogenase 465 U/L (333-699) 11/05/17 15:30 Total Creatine Kinase 55 U/L (35-230) 11/05/17 15:30 Troponin I < 0.01 ng/mL 11/05/17 15:30 NT-Pro-B Natriuret Pep 776 pg/mL (0-450) H 11/05/17 15:30 Total Protein 6.6 g/dL (5.8-8.3) 11/08/17 05:30 Albumin 3.2 g/dL (3.0-4.8) 11/08/17 05:30 Globulin 3.3 gm/dL 11/08/17 05:30 Albumin/Globulin Ratio 1.0 (1.1-1.8) L 11/08/17 05:30 Triglycerides 77 mg/dL (35-160) 11/06/17 06:00 Cholesterol 188 mg/dL (130-200) 11/06/17 06:00 LDL Cholesterol Direct 98 mg/dL (0-129) 11/06/17 06:00 HDL Cholesterol 53 mg/dL (29-60) 11/06/17 06:00 Lipase 11 U/L (23-300) L 11/05/17 15:30 TSH 3rd Generation 1.06 mIU/mL (0.46-4.68) 11/06/17 06:00 Urine Color Yellow (YELLOW) 11/05/17 17:18 Urine Appearance Clear (CLEAR) 11/05/17 17:18 Urine pH 7.5 (4.7-8.0) 11/05/17 17:18 Ur Specific [place] 1.010 (1.005-1.035) 11/05/17 17:18 Urine Protein Negative mg/dL (<30 mg/dL) 11/05/17 17:18 Urine Glucose (UA) Negative mg/dL (NEGATIVE) 11/05/17 17:18 Urine Ketones Negative mg/dL (NEGATIVE) 11/05/17 17:18 Urine Blood Trace-intact (NEGATIVE) H 11/05/17 17:18 Urine Nitrate Negative (NEGATIVE) 11/05/17 17:18 Urine Bilirubin Negative (NEGATIVE) 11/05/17 17:18 Urine Urobilinogen 0.2 E.U./dL (<1 E.U./dL) 11/05/17 17:18 Ur Leukocyte Esterase Negative Adalid/uL (NEGATIVE) 11/05/17 17:18 Urine RBC 2 - 5 /hpf (0-2) 11/05/17 17:18 Urine WBC 0 - 2 /hpf (0-6) 11/05/17 17:18 Ur Epithelial Cells 3 - 4 /hpf (0-5) 11/05/17 17:18 Urine Bacteria Few (NEG) 11/05/17 17:18 Valproic Acid 16 ug/mL (50.0-100.0) L 11/05/17 15:30 Discharge Exam - Head Exam Head Exam: ATRAUMATIC Discharge Plan - Follow Up Plan Condition: FAIR Disposition: HOME/ ROUTINE
[2017-11-08 17:47] VITALS: PULSE 100
[2017-11-08 19:10] VITALS: BP 100/59; RESP 20; TEMP 98; O2SAT 99
--- NOTE | 2017-11-08 19:29 | CP.PCM.PN ---
Subjective - Date & Time of Evaluation Date of Evaluation: 11/08/17 Time of Evaluation: 09:55 - Subjective Subjective: Comfortable in bed but still with pain at the cholecystostomy site, no fevers, no nausea. Objective - Vital Signs/Intake and Output Vital Signs (last 24 hours): Temp Pulse Resp BP Pulse Ox 98 F 100 H 20 100/59 L 99 11/08/17 18:00 11/08/17 18:00 11/08/17 18:00 11/08/17 18:00 11/08/17 18:00 Intake and Output: 11/08/17 11/09/17 18:59 06:59 Intake Total 480 Balance 480 - Labs Labs: 11/08/17 10:30 11/08/17 05:30 PT 11.9 SECONDS (9.4-12.5) 11/05/17 15:30 INR 1.04 (0.93-1.08) 11/05/17 15:30 APTT 24.8 Seconds (25.1-36.5) L 11/05/17 15:30 - Constitutional Appears: Chronically Ill - Head Exam Head Exam: NORMAL INSPECTION - Neck Exam Neck Exam: absent: Meningismus - Respiratory Exam Respiratory Exam: Decreased Breath Sounds - Cardiovascular Exam Cardiovascular Exam: +S1, +S2 - GI/Abdominal Exam GI & Abdominal Exam: Soft. absent: Tenderness Additional comments: right upper quadrant cholecystostomy tube in place with serosanguinous fluid Assessment and Plan - Assessment and Plan (Free Text) Plan: Assessment Severe sepsis due to acute cholecystitis S/P cholecystostomy (IR-guided) chronic CHF significant smoking history history of alcohol abuse COPD history of UTI dementia Plan Continue Merrem and surgery to follow the drainage from the cholecystostomy
--- NOTE | 2017-11-08 23:19 | PN ---
DATE: 11/08/2017 SUBJECTIVE: No reported arrhythmia and the patient denies any chest pain. OBJECTIVE: VITAL SIGNS: Blood pressure , heart rate 100, temperature 98.8, respirations 18. HEENT: Normocephalic. CHEST: Clear. HEART: S1 and S2, regular. ABDOMEN: Positive bowel sounds. EXTREMITIES: No edema. LABORATORY DATA: Today's white count 12.2, hemoglobin and hematocrit 12.3 and 39.3, platelet count 196,000. The SMA-7 is within normal limits except BUN of 22. Yesterday's EKG which was done as a followup revealed sinus rhythm, LVH with repolarization changes, heart rate 84. ASSESSMENT: 1. Status post cholecystostomy for calculus cholecystitis. 2. Hypertension and hyperlipidemia. 3. Moderate aortic insufficiency. RECOMMENDATIONS: The patient can be maintained on current medications including Lasix intravenous twice a day, Lopressor 12.5 mg twice a day, Lipitor 10 mg once a day, IV meropenem at 1 g every 8 hours, Zestril 5 mg daily. The patient is in a process of being transferred to subacute rehab. Naman Jacob MD
== END 2017-11-08 19:10 | DRG 872 ==
LOC: ED 14:31 → ERH 18:04 → 3RNO 20:32
PROVIDERS: ADMIT Internal Medicine; ATTEND Internal Medicine
PROC: 0F9430Z Drainage of Gallbladder with Drainage Device, Percutaneous Approach (ICD-10-PCS; principal; 2017-11-06 14:00)
DX: A41.9 Sepsis, unspecified organism (principal); K80.00 Calculus of gallbladder with acute cholecystitis without obstruction; R65.20 Severe sepsis without septic shock; I11.0 Hypertensive heart disease with heart failure; I50.9 Heart failure, unspecified; J43.9 Emphysema, unspecified; E03.9 Hypothyroidism, unspecified; E78.5 Hyperlipidemia, unspecified; F03.90 Unspecified dementia, unspecified severity, without behavioral disturbance, psychotic disturbance, mood disturbance, and anxiety; G40.909 Epilepsy, unspecified, not intractable, without status epilepticus; K59.09 Other constipation; I35.1 Nonrheumatic aortic (valve) insufficiency; Z87.440 Personal history of urinary (tract) infections

== ENCOUNTER 2017-11-12 14:18 | Inpatient (IN) | payer MEDICARE, MEDICAID ==
--- NOTE | 2017-11-12 14:37 | ED PDOC ---
Arrival/HPI - General Chief Complaint: Seizure Time Seen by Provider: 11/12/17 14:30 Historian: Patient, Family (daughter and grand daughter ), [facility] EM Caveat: Dementia, Language Barrier - History of Present Illness Narrative History of Present Illness (Text): 11/12/17 14:55 87 year old female, whose PMH includes CHF, COPD, and seizure, who presents to the emergency department complaining of an episode of seizure prior to emergency department arrival, witnessed by the nursing staff that lasted ~ 30 seconds, also witnessed by grand-daughter who thought it asted 3 minutes. pt was noted to have generalized convulsions, with no incontinence/no tongue biting ; upon emergency department arrival, pt is slowly waking up and complaining of a generalized headache; NO FALL/trauma is noted. Patient was also noted to have a seizure last night witnessed by daughter but did not seek medical attention. Another previous seizure occurred 2 weeks ago and also no medical attention was sought and prior to that, few months ago with another seizure event; per daughter, states patient's depakote has been down from 500mg BID to 250mg BID. Patient was d/c to long-term to rehab s/p gall bladder surgery last week while admitted in the hospital at [facility] with acute choley and CHF. Patient has been complaining of persistent abdominal pain since then, without significant appetite changes, nausea, vomiting, fever, chills/diarrhea, fall, trauma, or sick contact; + intermittent shortness of breath, no chest pain, no urinary/bowel changes noted. pt without further medical complaints. pt is here for further eval. PMD: Dr. Ramsey past medical history: dementia; CHF; seizures Patient is DNR/DNI and power of insurance defense attorney is the daughter. pt was living with family until recently Time/Duration: Prior to Arrival Symptom Onset: Sudden Symptom Course: Unchanged Activities at Onset: Rest Context: Other (long-term) Past Medical History - Provider Review Nursing Documentation Reviewed: Yes - Travel History Have you recently traveled outside [place] w/in the past 3 mons?: No - Past History Past History: Non-Contributing - Infectious Disease Hx of Infectious Diseases: None - Tetanus Immunization Tetanus Immunization: Unknown - Reproductive Menopause: Yes Currently : No - Cardiac Hx Congestive Heart Failure: Yes - Pulmonary Hx Chronic Obstructive Pulmonary Disease (COPD): Yes - Neurological Hx Dementia: Yes Hx Migraine: Yes Hx Seizures: Yes (on Depakote) - HEENT Hx HEENT Disorder: No - Renal Hx Renal Disorder: No - Endocrine/Metabolic Hx Endocrine Disorders: No - Hematological/Oncological Hx Blood Disorders: No - Integumentary Hx Dermatological Disorder: No - Musculoskeletal/Rheumatological Hx Unsteady Gait: Yes Other/Comment: Recent falls - Gastrointestinal Hx Gastrointestinal Disorders: No - Genitourinary/Gynecological Hx Incontinence: Yes - Psychiatric Hx Anxiety: Yes Hx Depression: Yes Hx Schizophrenia: Yes Hx Substance Use: No - Surgical History Hx Eye Surgery: Yes Hx Orthopedic Surgery: Yes (left shldr, left hand) Other/Comment: Hernia repair - Anesthesia Hx Anesthesia Reactions: No Hx Malignant Hyperthermia: No - Suicidal Assessment Feels Threatened In Home Enviroment: No Family/Social History - Physician Review Nursing Documentation Reviewed: Yes Family/Social History: Unknown Family HX Smoking Status: Former Smoker Hx Alcohol Use: No Hx Substance Use: No Hx Substance Use Treatment: No Allergies/Home Meds Allergies/Adverse Reactions: Allergies moxifloxacin Allergy (Verified 11/12/17 14:53) ITCHING Home Medications: Home Meds Medication Instructions Recorded Confirmed Divalproex [Depakote DR (*BID*)] 250 mg PO BID 01/18/12 08/06/15 Ezetimibe [Zetia] 10 mg PO DAILY 01/18/12 08/06/15 Memantine [Namenda] 10 mg PO BID 01/18/12 08/06/15 Albuterol Sulfate [Proair Hfa] 0.09 mg IH Q4 PRN 09/11/12 08/06/15 Ipratropium/Albuterol Sulfate 1 units NEB Q4 PRN 09/11/12 08/06/15 [Duoneb 0.5 mg-3 mg/3 ml Soln] ARIPiprazole [Abilify] 5 mg PO DAILY 08/06/15 08/06/15 Clonazepam [Klonopin] 0.5 mg PO HS 08/06/15 08/06/15 Furosemide [Lasix] 40 mg PO DAILY 08/06/15 08/06/15 Isosorbide Dinitrate 30 mg PO DAILY 08/06/15 08/06/15 Pantoprazole [Protonix EC Tab] 40 mg PO DAILY 08/06/15 08/06/15 Sertraline HCl [Zoloft] 75 mg PO DAILY 08/06/15 08/06/15 Solifenacin Succinate [Vesicare] 10 mg PO DAILY 08/06/15 08/06/15 Review of Systems - Review of Systems Constitutional: absent: Fevers Eyes: Normal ENT: Normal Respiratory: SOB, Wheezing. absent: Cough Cardiovascular: absent: Chest Pain, Orthopnea, Syncope Gastrointestinal: Abdominal Pain. absent: Nausea, Vomiting, Appetite Changes Genitourinary Female: absent: Dysuria Musculoskeletal: absent: Back Pain, Neck Pain Skin: absent: Rash Neurological: Headache, Seizure Endocrine: absent: Diaphoresis Hemo/Lymphatic: Normal Psychiatric: Normal Physical Exam - Physical Exam Narrative Physical Exam (Text): 11/12/17 General: alert/awake, GCS = 15, oriented x 2 (not to date/time), resting in bed , uncomfortable, cooperative, interactive; mild distress due to pain Head: NC/AT EYE: PERRLA, EOMI, sclera anicteric, no nystagmus, no photophobia; visual field intact b/l Facial: WNL Oral: uvula/tongue are midline, no exudate/lesions, no drooling/stridor, no dysphonia; poor dentitions; mild dry oral mucosa NECK: intact ROM, no midline tenderness, no nuchal rigidity, no meningeal signs ; no step off Chest: Coarse breath sounds with faint basiliar wheezing noted, no r/r; no tachypenia, no accessory muscle use noted Chest Wall: no crepitus, no lesions, no gross deformities, no focal tenderness Cardiac: +S1, +S2, no m/r/r, no tachycardia Abdominal: +BS, soft/nd, well nourished/obese patient; + right mid/upper abd tenderness, noted cath at the site draining bilious fluids/non-bloody, no masses /rebound/guarding/rigidity; no fragoso's sign, no mcburney's point tenderness Extremities: intact ROM, strength 5-/5 grossly intact in all limbs, neurovasc intact b/l; + ambulatory; reflex +2/2; no everett's sign noted b/l BACK: no step off, no midline tenderness, NO crepitus, no gross deformities noted; Intact ROM SKIN: cap refill ~ 1 sec, no ulcerations, no petechiae, no rashes; mild pallor is noted NEURO: CNII-XII WNL, no facial asymmetries, no slurr speech, oriented x 2 (not to date/time) NIH stroke scale ~ 0 Psych: normal insight, normal affect; follows command with ease Vital Signs Reviewed: Yes Vital Signs Temp Pulse Resp BP Pulse Ox 11/12/17 17:42 104 H 18 111/70 97 11/12/17 14:40 99.6 F 106 H 18 109/65 98 Temperature: Afebrile Blood Pressure: Hypotensive Pulse: Tachycardic Respiratory Rate: Normal Appearance: Positive for: Well-Appearing, Non-Toxic, Uncomfortable. No: Comfortable, Ill-Appearing Pain Distress: Mild Mental Status: Positive for: other (alert/awake, oriented x 2 (not to date/time) ) - Systems Exam Head: Present: Atraumatic, Normocephalic Medical Decision Making ED Course and Treatment: 11/12/17 Impression: 87 year old female with multiple episodes of seizure associated with headache and abdominal pain. I have considered all Differential Diagnosis regarding pt's chief medical complaints/clinical findings included but are not limited to: recurrent seizure ; uncontrolled; persistent abd pain; intermittent sob Plan: -- CT abdomen and pelvis -- CT head -- Labs -- Chest X-ray -- Morphine and Sodium Chloride -- Urinalysis -- Reassess and disposition Progress Notes: 11/12/17 1500 pt is currently comfortable, at baseline mental status pt is awaiting ct results and further diagnostics for final disposition/ placement 1630 pt is comfortable currently, at baseline mental status awaiting for CT/lab results with patient's recurrent seizure/AMS, and persistent abd pain, will recommend patient for ADMISSION family/patient are made aware of pt's medical results agrees with admission 1700 I spoke to hospitalists computer information systems instructor, Dr Colón, made aware, agrees with admission ; agrees with surgery consult 11/12/17 17:17 surgery team/resident made aware, will see patient currently vital signs WNL Re-evaluation Time: 16:30 Reassessment Condition: Improving,but remains with symptoms - Critical Care Critical Care Minutes: 30 minutes Critical Care Time: Excluding Proc Time Narrative Critical Care (Text): 11/12/17 17:06 critical care time: 30min, excluding procedure time, excluding time teaching residents/students/mid-level providers; including initial eval/diagnosis, diagnostic interpretation, re-eval, consultations, final disposition - Lab Interpretations Lab Results: 11/12/17 14:35 11/12/17 14:35 Lab Results 11/12/17 16:45: Blood Type O POSITIVE, Antibody Screen Negative, BBK History Checked No verified bt 11/12/17 14:52: POC Glucose (mg/dL) 132 H 11/12/17 14:35: Troponin I < 0.01, NT-Pro-B Natriuret Pep 237 11/12/17 14:35: Valproic Acid < 10 L 11/12/17 14:35: Sodium 145, Chloride 98, Potassium 4.4, Carbon Dioxide 40 H D, Anion Gap 11, BUN 21, Creatinine 0.7, Est GFR ( Amer) > 60, Est GFR (Non- Af Amer) > 60, Random Glucose 132 H, Calcium 9.3, Magnesium 2.3 H, Total Bilirubin 0.3, AST 47 H D, ALT 21, Alkaline Phosphatase 79, Total Protein 6.8, Albumin 3.6, Globulin 3.3, Albumin/Globulin Ratio 1.1, Lipase 88 11/12/17 14:35: pO2 26 L, VBG pH 7.39, VBG pCO2 66.0 H*, VBG HCO3 40.0 H, VBG Total CO2 42.0 H, VBG O2 Sat (Calc) 53.5, VBG Base Excess 12.1 H, VBG Potassium 4.7, Sodium 141.0, Chloride 102.0, Glucose 136 H, Lactate 2.4 H, FiO2 21.0, Venous Blood Potassium 4.7 11/12/17 14:35: PT 11.5, INR 1.01, APTT 30.7 11/12/17 14:35: WBC 9.7 D, RBC 4.20, Hgb 12.5, Hct 38.4, MCV 91.4 D, MCH 29.8 , MCHC 32.6, RDW 14.3, Plt Count 303, MPV 9.6, Gran % 67.9, Lymph % (Auto) 25.1 , [place] % (Auto) 5.4, Eos % (Auto) 1.5, Baso % (Auto) 0.1, Gran # 6.61 H, Lymph # (Auto) 2.4, [place] # (Auto) 0.5, Eos # (Auto) 0.2, Baso # (Auto) 0.01 I have reviewed the lab results: Yes Interpretation: Abnormal lab values (elevated lactic acid; low valproic acid) - RAD Interpretation Narrative RAD Interpretations (Text): 11/12/17 17:04 This report is currently processing and HAS NOT BEEN OFFICIALLY SIGNED BY THE PHYSICIAN - ESTIMATED TIME OF APPROVAL IS 11/12/2017 17:00. PROCEDURE: CT HEAD WITHOUT CONTRAST. HISTORY: recurrent seizure, recent abd surgery, no fall COMPARISON: 09/15/2012 TECHNIQUE: Axial computed tomography images were obtained through the head/brain without intravenous contrast. Radiation dose: Total exam DLP = 828.43 mGy-cm. This CT exam was performed using one or more of the following dose reduction techniques: Automated exposure control, adjustment of the mA and/or kV according to patient size, and/or use of iterative reconstruction technique. FINDINGS: HEMORRHAGE: No intracranial hemorrhage. BRAIN: No mass effect or edema. Mild atrophy consistent with age. Mild periventricular white matter lucency consistent with chronic microvascular ischemic change. No evidence of acute infarct. VENTRICLES: Mild ex vacuo ventricular dilatation. No midline shift. CALVARIUM: Unremarkable. PARANASAL SINUSES: Unremarkable as visualized. No significant inflammatory changes. MASTOID AIR CELLS: Unremarkable as visualized. No inflammatory changes. OTHER FINDINGS: None. IMPRESSION: Age-appropriate involutional change. No intracranial mass, hemorrhage or evidence of acute infarct. HISTORY: seziure COMPARISON: 11/05/2017 FINDINGS: LUNGS: No active pulmonary disease. PLEURA: No significant pleural effusion identified, no pneumothorax apparent. CARDIOVASCULAR: Normal. OSSEOUS STRUCTURES: No significant abnormalities. VISUALIZED UPPER ABDOMEN: Normal. OTHER FINDINGS: None. IMPRESSION: No active disease. 11/12/17 18:04 PROCEDURE: CT Abdomen and Pelvis with contrast HISTORY: Recent abdominal surgery, persistent abdominal pain. Relevant interventional procedure(s): 11/06/2017 CT-guided percutaneous cholecystotomy tube placement COMPARISON: 11/05/2017 CT abdomen and pelvis. 11/06/2017 abdominal ultrasound TECHNIQUE: Contrast dose: 100 cc Omnipaque 350 Radiation dose: Total exam DLP = 1073.33 mGy-cm. This CT exam was performed using one or more of the following dose reduction techniques: Automated exposure control, adjustment of the mA and/or kV according to patient size, and/or use of iterative reconstruction technique. FINDINGS: LOWER THORAX: Unremarkable. LIVER: The pigtail catheter courses through the right hepatic lobe into the gallbladder. No abnormalities about the catheter tract. No perihepatic or pericholecystic abnormalities identified. GALLBLADDER AND BILE DUCTS: The gallbladder is decompressed, the biliary catheter is in satisfactory position. PANCREAS: Pancreas remains mildly atrophic. No focal or diffuse abnormalities otherwise identified. SPLEEN: Unremarkable. ADRENALS: Unremarkable. No mass. KIDNEYS AND URETERS: Unremarkable. No hydronephrosis. No solid mass. VASCULATURE: Unremarkable. No aortic aneurysm. BOWEL: Unremarkable. No obstruction. No gross mural thickening. APPENDIX: Normal appendix. PERITONEUM: Unremarkable. No free fluid. No free air. LYMPH NODES: Unremarkable. No enlarged lymph nodes. BLADDER: Unremarkable. REPRODUCTIVE: Unremarkable. BONES: No acute fracture. OTHER FINDINGS: None. IMPRESSION: Status post percutaneous cholecystotomy catheter placement. No adverse findings identified. Gallbladder is decompressed. No significant interval changes otherwise detected compared to the prior CT 11/05/2017. Radiology Orders: 11/12/17 14:47 CHEST PORTABLE [RAD] Stat 11/12/17 14:49 ABD & PELVIS IV CONTRAST ONLY [CT] Stat 11/12/17 14:50 HEAD W/O CONTRAST [CT] Stat Cleaning Laborer: Radiologist - EKG Interpretation EKG Interpretation (Text): 11/12/17 15:39 Sinus tach at 105 bpm, LAD, no ectopy, non-specific st-t changes, voltage criteria LVH, ABNL EKG; unchanged compare with old ekg 10/2017 Interpreted by ED Physician: Yes Type: 12 lead EKG Comparison: Similar to previous EKG - Medication Orders Current Medication Orders: Meropenem (Merrem Iv 1 Gm Premix) 50 mls @ 100 mls/hr IVPB STAT ANGIE PRN Reason: Protocol Last Admin: 11/12/17 15:18 Dose: 100 mls/hr eMAR Start Stop Document 11/12/17 15:18 SF (Rec: 11/12/17 15:18 SF [id number]) Intravenous Solution Start Date 11/12/17 Start Time 15:18 End Date 11/12/17 End time 15:48 Total Infusion Time 30 Discontinued Medications Albuterol/Ipratropium (Duoneb 3 Mg/0.5 Mg (3 Ml) Ud) 3 ml IH Q15M ANGIE Stop: 11/12/17 15:46 Last Admin: 11/12/17 16:00 Dose: 3 ml Aspirin (Aspirin) 325 mg PO STAT STA Stop: 11/12/17 17:18 Sodium Chloride (Sodium Chloride 0.9%) 1,000 mls @ 999 mls/hr IV .Q1H1M STA Stop: 11/12/17 15:47 Last Admin: 11/12/17 15:19 Dose: 999 mls/hr eMAR Start Stop Document 11/12/17 15:19 SF (Rec: 11/12/17 15:19 SF [id number]) Intravenous Solution Start Date 11/12/17 Start Time 15:19 End Date 11/12/17 End time 16:20 Total Infusion Time 61 Valproate Sodium 1,000 mg/ (Sodium Chloride) 110 mls @ 100 mls/hr IVPB ONCE ONE Stop: 11/12/17 17:57 Morphine Sulfate (Morphine) 4 mg IVP STAT STA Stop: 11/12/17 14:48 Last Admin: 11/12/17 15:17 Dose: 4 mg MAR Pain Assessment Document 11/12/17 15:17 SF (Rec: 11/12/17 15:18 SF [id number]) Pain Reassessment Is this a pain reassessment? Yes Sleep Is patient sleeping during reassessment? No Presence of Pain Presence of Pain Yes Pain Scale Used Pain Scale Used Numeric IVP Administration Document 11/12/17 15:17 SF (Rec: 11/12/17 15:18 SF [id number]) Charges for Administration # of IVP Administrations 1 - Scribe Statement The provider has reviewed the documentation as recorded by the Vidya Alavres Provider Scribe Attestation: All medical record entries made by the Vidya were at my direction and personally dictated by me. I have reviewed the chart and agree that the record accurately reflects my personal performance of the history, physical exam, medical decision making, and the department course for this patient. I have also personally directed, reviewed, and agree with the discharge instructions and disposition. Disposition/Present on Arrival - Present on Arrival Any Indicators Present on Arrival: No History of DVT/PE: No History of Uncontrolled Diabetes: No Urinary Catheter: No History of Decub. Ulcer: No History Surgical Site Infection Following: None - Disposition Have Diagnosis and Disposition been Completed?: Yes Diagnosis: Recurrent seizures, Altered mental status, unspecified, Intractable abdominal pain, Weakness Disposition: HOSPITALIZED Disposition Time: 16:30 Patient Plan: Admission, Telemetry Patient Problems: Current Active Problems Problem Status Onset Recurrent seizures Acute Altered mental status, unspecified Acute Intractable abdominal pain Acute Weakness Acute Condition: STABLE
[2017-11-12] MEDS ORDERED: Morphine 4 mg/ml ISec IVP STA (14:47)
[2017-11-12] MEDS ORDERED: Sodium Chloride 0.9% 1,000 ML IV STA (14:47)
[2017-11-12 15:01] LABS: VENOUS BLOOD GAS BASE EXCESS 12.1 mmol/L (0.0-2.0); VENOUS BLOOD GAS PO2 26 mm/Hg (30-55); VENOUS BLOOD PH 7.39 (7.32-7.43)
[2017-11-12 15:02] LABS: BASO # 0.01 K/mm3 (0.0-2.0); BASO % 0.1 % (0.0-3.0); EOS # 0.2 (0.0-0.7); EOS % 1.5 % (1.5-5.0); GRAN # 6.61 (1.4-6.5); GRAN % 67.9 % (50.0-68.0); HEMOGLOBIN 12.5 g/dL (12.0-16.0); LYMPH # 2.4 (1.2-3.4); LYMPH % 25.1 % (22.0-35.0); MEAN CELL VOLUME 91.4 fl (80.0-105.0); MEAN CORPUSCULAR HEMOGLOBIN 29.8 pg (25.0-35.0); MEAN CORPUSCULAR HGB CONC 32.6 g/dl (31.0-37.0); MEAN PLATELET VOLUME 9.6 fl (7.0-11.0); MONO # 0.5 (0.1-0.6); MONO % 5.4 % (1.0-6.0); RBC 4.2 10^6/uL (3.5-6.1); RED CELL DISTRIBUTION WIDTH 14.3 % (11.5-14.5); WHITE BLOOD COUNT 9.7 10^3/ul (4.5-11.0)
[2017-11-12] MEDS ORDERED: Meropenem IV 1 gm in NS 50 ML IVPB SCH (15:15)
[2017-11-12] MEDS: Albuterol-Ipratrop 3 mg / 0.5 (3 ml) UD IH SCH ×3 (15:18→16:00)
--- NOTE | 2017-11-12 15:18 | RAD ---
HISTORY: risaure COMPARISON: 11/05/2017 FINDINGS: LUNGS: No active pulmonary disease. PLEURA: No significant pleural effusion identified, no pneumothorax apparent. CARDIOVASCULAR: Normal. OSSEOUS STRUCTURES: No significant abnormalities. VISUALIZED UPPER ABDOMEN: Normal. OTHER FINDINGS: None. IMPRESSION: No active disease.
[2017-11-12 15:27] LABS: ALB/GLOB RATIO 1.1 (1.1-1.8); ALBUMIN 3.6 g/dL (3.0-4.8); ALT/SGPT 21 U/L (7-56); AST/SGOT 47 U/L (14-36); BLOOD UREA NITROGEN 21 mg/dL (7-21); CALCIUM 9.3 mg/dL (8.4-10.5); GFR AFRICAN-AMERICAN > 60; GFR NON-AFRICAN AMERICAN > 60; LIPASE 88 U/L (23-300)
[2017-11-12 15:30] LABS: INR 1.01 (0.93-1.08); PARTIAL THROMBOPLASTIN TIME 30.7 Seconds (25.1-36.5); PROTHROMBIN TIME 11.5 SECONDS (9.4-12.5)
[2017-11-12] MEDS ORDERED: Iohexol 350 MG/100 ML VIAL ONE (15:46)
[2017-11-12 16:51] LABS: B-TYPE NATRIURETIC PEPTIDE 237 pg/mL (0-450); TROPONIN I < 0.01 ng/mL
[2017-11-12] MEDS ORDERED: Valproate 1,000 MG in Sodium Chloride 0.9% 100 ML IVPB ONE (16:52)
--- NOTE | 2017-11-12 16:56 | CT ---
PROCEDURE: CT HEAD WITHOUT CONTRAST. HISTORY: recurrent seizure, recent abd surgery, no fall COMPARISON: 09/15/2012 TECHNIQUE: Axial computed tomography images were obtained through the head/brain without intravenous contrast. Radiation dose: Total exam DLP = 828.43 mGy-cm. This CT exam was performed using one or more of the following dose reduction techniques: Automated exposure control, adjustment of the mA and/or kV according to patient size, and/or use of iterative reconstruction technique. FINDINGS: HEMORRHAGE: No intracranial hemorrhage. BRAIN: No mass effect or edema. Mild atrophy consistent with age. Mild periventricular white matter lucency consistent with chronic microvascular ischemic change. No evidence of acute infarct. VENTRICLES: Mild ex vacuo ventricular dilatation. No midline shift. CALVARIUM: Unremarkable. PARANASAL SINUSES: Unremarkable as visualized. No significant inflammatory changes. MASTOID AIR CELLS: Unremarkable as visualized. No inflammatory changes. OTHER FINDINGS: None. IMPRESSION: Age-appropriate involutional change. No intracranial mass, hemorrhage or evidence of acute infarct.
--- NOTE | 2017-11-12 17:25 | CP.PCM.CON ---
History of Present Illness - History of Present Illness History of Present Illness: General Surgery Consult Note for Dr. Soriano Reason for consult: abdominal pain 87 F with past medical history that includes cholelithiasis, recent episode of cholecystitis s/p cholecystotomy tube, CHF, COPD, depression, dementia, seizure disorder who was brought in by EMS to [facility] from rehab facility after two witnessed seizures. Patient was recently in the hospital for cholecystitis when she had cholecystotomy tube placed. Patient was with daughter who witnessed the seizures. She is currently awake and alert but slightly confused. History was supplemented by her daughter. Patient states she has abdominal pain at drain site. She rates pain as mild. She describes it as constant cramping. Her daughter also reports dysuria and melanotic bowel movement with prior constipation. She denies any aggravating or alleviating factors. Patient is tolerating oral intake of liquids and solid foods within nausea/vomiting or exacerbation of pain. 12 point ROS is otherwise negative. PMD: Dr. Tracy Ramsey PMH: cholelithiasis, recent episode of cholecystitis s/p cholecystotomy tube, CHF, COPD, asthma, recurrent UTIs, emphysema, depression, HLD, dementia, seizure disorder, hypothyroidism Meds: As per EMR Allergy: Moxifloxacin PSH: Ventral hernia repair, Left infuinal hernia repair, Left shoulder surgery, left hand surgery Social: Denies Tobacco/illicit drug use. Former ETOH use. Lives currently with daughter who is POA Review of Systems - Review of Systems All systems: reviewed and no additional remarkable complaints except (as per HPI ) Past Patient History - Infectious Disease Hx of Infectious Diseases: None - Tetanus Immunizations Tetanus Immunization: Unknown - Past Social History Smoking Status: Former Smoker - CARDIAC Hx Congestive Heart Failure: Yes - PULMONARY Hx Chronic Obstructive Pulmonary Disease (COPD): Yes - NEUROLOGICAL Hx Dementia: Yes Hx Migraine: Yes Hx Seizures: Yes (on Depakote) - HEENT Hx HEENT Problems: No - RENAL Hx Chronic Kidney Disease: No - ENDOCRINE/METABOLIC Hx Endocrine Disorders: No - HEMATOLOGICAL/ONCOLOGICAL Hx Blood Disorders: No - INTEGUMENTARY Hx Dermatological Problems: No - MUSCULOSKELETAL/RHEUMATOLOGICAL Hx Unsteady Gait: Yes Other/Comment: Recent falls - GASTROINTESTINAL Hx Gastrointestinal Disorders: No - GENITOURINARY/GYNECOLOGICAL Hx Incontinence: Yes - PSYCHIATRIC Hx Anxiety: Yes Hx Depression: Yes Hx Schizophrenia: Yes Hx Substance Use: No - SURGICAL HISTORY Hx Eye Surgery: Yes Hx Orthopedic Surgery: Yes (left shldr, left hand) Other/Comment: Hernia repair - ANESTHESIA Hx Anesthesia Reactions: No Hx Malignant Hyperthermia: No Meds Allergies/Adverse Reactions: Allergies Allergy/AdvReac Type Severity Reaction Status Date / Time moxifloxacin Allergy ITCHING Verified 11/12/17 14:53 - Medications Medications: Current Medications Meropenem (Merrem Iv 1 Gm Premix) 50 mls @ 100 mls/hr IVPB STAT ANGIE PRN Reason: Protocol Last Admin: 11/12/17 15:18 Dose: 100 mls/hr Valproate Sodium 1,000 mg/ (Sodium Chloride) 110 mls @ 100 mls/hr IVPB ONCE ONE Stop: 11/12/17 17:57 Physical Exam - Constitutional Appears: No Acute Distress - Head Exam Head Exam: ATRAUMATIC, NORMOCEPHALIC - Eye Exam Eye Exam: EOMI, Normal appearance Pupil Exam: PERRL - ENT Exam ENT Exam: Mucous Membranes Moist - Respiratory Exam Respiratory Exam: NORMAL BREATHING PATTERN - Cardiovascular Exam Cardiovascular Exam: REGULAR RHYTHM - GI/Abdominal Exam GI & Abdominal Exam: Normal Bowel Sounds, Soft, Tenderness (drain site). absent : Distended, Firm, Guarding, Hernia, Rebound, Rigid Additional comments: s/p cholecystotomy tube - Extremities Exam Extremities exam: Positive for: normal capillary refill, pedal pulses present - Back Exam Back exam: absent: CVA tenderness (L), CVA tenderness (R) - Neurological Exam Neurological exam: Alert, CN II-XII Intact - Psychiatric Exam Psychiatric exam: Normal Affect, Normal Mood - Skin Skin Exam: Dry, Intact, Normal Color, Warm Results - Vital Signs Recent Vital Signs: Last Vital Signs Temp 99.6 F 11/12/17 14:40 Pulse 106 H 11/12/17 14:40 Resp 18 11/12/17 14:40 BP 109/65 11/12/17 14:40 Pulse Ox 98 11/12/17 14:40 - Labs Result Diagrams: 11/13/17 06:20 11/13/17 06:20 Labs: Laboratory Results - last 24 hr 11/12/17 11/12/17 11/12/17 14:35 14:35 14:35 WBC 9.7 D RBC 4.20 Hgb 12.5 Hct 38.4 MCV 91.4 D MCH 29.8 MCHC 32.6 RDW 14.3 Plt Count 303 MPV 9.6 Gran % 67.9 Lymph % (Auto) 25.1 Rooks % (Auto) 5.4 Eos % (Auto) 1.5 Baso % (Auto) 0.1 Gran # 6.61 H Lymph # (Auto) 2.4 Rooks # (Auto) 0.5 Eos # (Auto) 0.2 Baso # (Auto) 0.01 PT 11.5 INR 1.01 APTT 30.7 pO2 26 L VBG pH 7.39 VBG pCO2 66.0 H* VBG HCO3 40.0 H VBG Total CO2 42.0 H VBG O2 Sat (Calc) 53.5 VBG Base Excess 12.1 H VBG Potassium 4.7 Sodium 141.0 Chloride 102.0 Glucose 136 H Lactate 2.4 H FiO2 21.0 Potassium Carbon Dioxide Anion Gap BUN Creatinine Est GFR ( Amer) Est GFR (Non-Af Amer) POC Glucose (mg/dL) Random Glucose Calcium Magnesium Total Bilirubin AST ALT Alkaline Phosphatase Troponin I NT-Pro-B Natriuret Pep Total Protein Albumin Globulin Albumin/Globulin Ratio Lipase Venous Blood Potassium 4.7 Valproic Acid BBK History Checked 11/12/17 11/12/17 11/12/17 14:35 14:35 14:35 WBC RBC Hgb Hct MCV MCH MCHC RDW Plt Count MPV Gran % Lymph % (Auto) Rooks % (Auto) Eos % (Auto) Baso % (Auto) Gran # Lymph # (Auto) Rooks # (Auto) Eos # (Auto) Baso # (Auto) PT INR APTT pO2 VBG pH VBG pCO2 VBG HCO3 VBG Total CO2 VBG O2 Sat (Calc) VBG Base Excess VBG Potassium Sodium 145 Chloride 98 Glucose Lactate FiO2 Potassium 4.4 Carbon Dioxide 40 H D Anion Gap 11 BUN 21 Creatinine 0.7 Est GFR ( Amer) > 60 Est GFR (Non-Af Amer) > 60 POC Glucose (mg/dL) Random Glucose 132 H Calcium 9.3 Magnesium 2.3 H Total Bilirubin 0.3 AST 47 H D ALT 21 Alkaline Phosphatase 79 Troponin I < 0.01 NT-Pro-B Natriuret Pep 237 Total Protein 6.8 Albumin 3.6 Globulin 3.3 Albumin/Globulin Ratio 1.1 Lipase 88 Venous Blood Potassium Valproic Acid < 10 L BBK History Checked 11/12/17 11/12/17 14:52 16:45 WBC RBC Hgb Hct MCV MCH MCHC RDW Plt Count MPV Gran % Lymph % (Auto) Rooks % (Auto) Eos % (Auto) Baso % (Auto) Gran # Lymph # (Auto) Rooks # (Auto) Eos # (Auto) Baso # (Auto) PT INR APTT pO2 VBG pH VBG pCO2 VBG HCO3 VBG Total CO2 VBG O2 Sat (Calc) VBG Base Excess VBG Potassium Sodium Chloride Glucose Lactate FiO2 Potassium Carbon Dioxide Anion Gap BUN Creatinine Est GFR ( Amer) Est GFR (Non-Af Amer) POC Glucose (mg/dL) 132 H Random Glucose Calcium Magnesium Total Bilirubin AST ALT Alkaline Phosphatase Troponin I NT-Pro-B Natriuret Pep Total Protein Albumin Globulin Albumin/Globulin Ratio Lipase Venous Blood Potassium Valproic Acid BBK History Checked No verified bt Assessment & Plan - Assessment and Plan (Free Text) Assessment: 87 F who was admitted for seizures presents with abdominal pain near cholecystotomy tube Plan: -CT abd/pelvis was unremarkable -Patient pain is mild and she is tolerating diet as per daughter -Medical management as per primary and Neurology -No surgical intervention needed at this time -Further recommendations as per Dr. Bo Brizuela PGY1
--- NOTE | 2017-11-12 18:01 | CT ---
PROCEDURE: CT Abdomen and Pelvis with contrast HISTORY: Recent abdominal surgery, persistent abdominal pain. Relevant interventional procedure(s): 11/06/2017 CT-guided percutaneous cholecystotomy tube placement COMPARISON: 11/05/2017 CT abdomen and pelvis. 11/06/2017 abdominal ultrasound TECHNIQUE: Contrast dose: 100 cc Omnipaque 350 Radiation dose: Total exam DLP = 1073.33 mGy-cm. This CT exam was performed using one or more of the following dose reduction techniques: Automated exposure control, adjustment of the mA and/or kV according to patient size, and/or use of iterative reconstruction technique. FINDINGS: LOWER THORAX: Unremarkable. LIVER: The pigtail catheter courses through the right hepatic lobe into the gallbladder. No abnormalities about the catheter tract. No perihepatic or pericholecystic abnormalities identified. GALLBLADDER AND BILE DUCTS: The gallbladder is decompressed, the biliary catheter is in satisfactory position. PANCREAS: Pancreas remains mildly atrophic. No focal or diffuse abnormalities otherwise identified. SPLEEN: Unremarkable. ADRENALS: Unremarkable. No mass. KIDNEYS AND URETERS: Unremarkable. No hydronephrosis. No solid mass. VASCULATURE: Unremarkable. No aortic aneurysm. BOWEL: Unremarkable. No obstruction. No gross mural thickening. APPENDIX: Normal appendix. PERITONEUM: Unremarkable. No free fluid. No free air. LYMPH NODES: Unremarkable. No enlarged lymph nodes. BLADDER: Unremarkable. REPRODUCTIVE: Unremarkable. BONES: No acute fracture. OTHER FINDINGS: None. IMPRESSION: Status post percutaneous cholecystotomy catheter placement. No adverse findings identified. Gallbladder is decompressed. No significant interval changes otherwise detected compared to the prior CT 11/05/2017.
--- NOTE | 2017-11-12 18:18 | CP.PCM.HP ---
<BreanneWinstonedel - Last Filed: 11/12/17 20:33> History of Present Illness - History of Present Illness History of Present Illness: Nhung Raymundo DO PGY1 - IM H&P for Dr. King CC: seizures HPI: Patient is an 87 year old female with past medical history significant for cholelithiasis and recent episode of cholecystitis s/p gallbladder drain placement, CHF unknown EF, COPD/asthma, recurrent UTIs, emphysema, depression, HLD, dementia, seizure disorder, and hypothyroidism who presents to [facility] by ambulance from rehab facility after two witnessed seizures. Patient was recently in the hospital for cholecystitis and had a drain placed. She is on depakote for her epilepsy, and her dose was recently decreased to 250mg PO BID. Yesterday, she was with her daughter who witnessed her start having a convulsive episode, and urinated on herself, but did not bite her tongue, and did not fall or hit her head/body; convulsions lasted about 1 minute and stopped spontaneously. This morning, she had a similar episode while eating breakfast, which only lasted for about 10-15 seconds. She is currently awake and alert, and is providing some of the history, supplemented by her daughter. She denies any pain, chest pain, shortness of breath, confusion, nausea, vomiting, diarrhea, fever, chills, headache, dizziness. She admits to dysuria, which she always has. Her daughter also reports that she has had a melanotic bowel movement 3 days ago, and has otherwise been constipation. She also admits to mild abdominal pain near the site of the drain. Remainder of 12 point ROS was obtained and was negative, except as above. PMH: As above PSH: Ventral hernia repair, Left infuinal hernia repair, Left shoulder surgery, left hand surgery SOCHx: Tobacco: Former ETOH: Denies, ID: Denies, Lives currently with daughter who is POA ALL: Moxifloxacin MEDS: CIELO reviewed PMD: Tracy Ramsey Present on Admission - Present on Admission Any Indicators Present on Admission: No Past Patient History - Infectious Disease Hx of Infectious Diseases: None - Tetanus Immunizations Tetanus Immunization: Unknown - Past Social History Smoking Status: Former Smoker - CARDIAC Hx Congestive Heart Failure: Yes - PULMONARY Hx Chronic Obstructive Pulmonary Disease (COPD): Yes - NEUROLOGICAL Hx Dementia: Yes Hx Migraine: Yes Hx Seizures: Yes (on Depakote) - HEENT Hx HEENT Problems: No - RENAL Hx Chronic Kidney Disease: No - ENDOCRINE/METABOLIC Hx Endocrine Disorders: No - HEMATOLOGICAL/ONCOLOGICAL Hx Blood Disorders: No - INTEGUMENTARY Hx Dermatological Problems: No - MUSCULOSKELETAL/RHEUMATOLOGICAL Hx Unsteady Gait: Yes Other/Comment: Recent falls - GASTROINTESTINAL Hx Gastrointestinal Disorders: No - GENITOURINARY/GYNECOLOGICAL Hx Incontinence: Yes - PSYCHIATRIC Hx Anxiety: Yes Hx Depression: Yes Hx Schizophrenia: Yes Hx Substance Use: No - SURGICAL HISTORY Hx Eye Surgery: Yes Hx Orthopedic Surgery: Yes (left shldr, left hand) Other/Comment: Hernia repair - ANESTHESIA Hx Anesthesia Reactions: No Hx Malignant Hyperthermia: No Meds Allergies/Adverse Reactions: Allergies Allergy/AdvReac Type Severity Reaction Status Date / Time moxifloxacin Allergy ITCHING Verified 11/12/17 14:53 Physical Exam - Constitutional Appears: Non-toxic, No Acute Distress - Head Exam Head Exam: ATRAUMATIC, NORMOCEPHALIC - Eye Exam Eye Exam: EOMI, Normal appearance - ENT Exam ENT Exam: Mucous Membranes Moist - Respiratory Exam Respiratory Exam: Rales (Faint, bibasilar rales), NORMAL BREATHING PATTERN - Cardiovascular Exam Cardiovascular Exam: Tachycardia, REGULAR RHYTHM, +S1, +S2 - GI/Abdominal Exam GI & Abdominal Exam: Soft. absent: Distended, Firm, Guarding, Rebound, Rigid, Tenderness - Extremities Exam Extremities exam: Negative for: calf tenderness, pedal edema - Neurological Exam Neurological exam: Alert, CN II-XII Intact, Oriented x3 Additional comments: 5/5 strength in all four extremities - Psychiatric Exam Psychiatric exam: Normal Affect, Normal Mood - Skin Skin Exam: Dry, Intact, Normal Color Results - Vital Signs Recent Vital Signs: Last Vital Signs Temp 99.6 F 11/12/17 14:40 Pulse 104 H 11/12/17 17:42 Resp 18 11/12/17 17:42 BP 111/70 11/12/17 17:42 Pulse Ox 97 11/12/17 17:42 - Labs Result Diagrams: 11/12/17 14:35 11/12/17 14:35 Assessment & Plan - Assessment and Plan (Free Text) Assessment: 87 year old female with past medical history significant for cholelithiasis and Cholecystitis s/p cholecystostomy, 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, COPD/asthma, recurrent UTIs, emphysema, depression, schizophrenia, HLD, dementia, seizure disorder, and hypothyroidism with breakthrough seizures; In the ER, depakote level was low Breakthrough Seizures with history of epilepsy - Patient takes depakote, current level is low; dose was recently decreased; patient has also been on a carbapenem antibiotic since discharge - Will discontinue carbapenem antibiotic; increase depakote to 500mg PO BID; patient recieved 1g IV valproic acid in the ER - Head CT shows no acute findings - Seizure precautions - Ativan 2mg Q4 IV PRN for seizure - Neuro consult requested, appreciate recs Cholecystitis s/p cholecystostomy - Abdominal/Pelvis CT: s/p cholecystostomy, no adverse findings, gallbladder is decompressed, no significant interval changes - No leukocytosis; no abdominal tenderness - Continue antibiotics; per daughter 4 more days to complete the course; switched carbanenem to Zosyn to avoid possible interaction with depakote - ER requested general surgery consult; appreciate recs Hx of CHF with preserved ejection fraction; diastolic dysfunction - CXR showing no active disease - EKG showing LVH, LAD, sinus tach - Echocardiogram done 11/06 significant for grade III reversible restrictive diastolic dysfunction of the LV - Faint bibasilar crackles; does not appear to be in overt failure - Lisinopril 5mg, Metoprolol 12.5mg BID, Lasix 20mg Daily, Lipitor 10mg Daily - I and O, daily weight Hx of COPD - Unknown PFT value - NC 2L SaO2 goal >92% Hx of HLD - Continue home Lipitor 10mg Hx of Dementia, Depression, and Schizophrenia - Continue home medications DVT/GI ppx - Lovenox 40mg Daily - Protonix 40mg Daily Case and plan discussed with attending <Cruz King - Last Filed: 11/14/17 16:41> Results - Vital Signs Recent Vital Signs: Last Vital Signs Temp 97 F L 11/14/17 09:13 Pulse 75 11/14/17 09:13 Resp 22 11/14/17 09:13 BP 133/77 11/14/17 09:13 Pulse Ox 99 11/14/17 09:13 - Labs Result Diagrams: 11/14/17 06:00 11/14/17 06:00 Labs: Laboratory Results - last 24 hr 11/13/17 11/14/17 11/14/17 09:30 06:00 06:00 WBC 7.3 RBC 3.69 Hgb 10.8 L Hct 34.4 L MCV 93.2 MCH 29.3 MCHC 31.4 RDW 14.2 Plt Count 322 MPV 9.4 Gran % 78.6 H Lymph % (Auto) 19.8 L Kinney % (Auto) 1.5 Eos % (Auto) 0.0 L Baso % (Auto) 0.1 Gran # 5.73 Lymph # (Auto) 1.4 Kinney # (Auto) 0.1 Eos # (Auto) 0.0 Baso # (Auto) 0.01 Sodium 144 Potassium 5.0 Chloride 102 Carbon Dioxide 36 H Anion Gap 11 BUN 18 Creatinine 0.5 L Est GFR ( Amer) > 60 Est GFR (Non-Af Amer) > 60 Random Glucose 131 H Calcium 8.7 Total Bilirubin 0.3 AST 59 H D ALT 36 Alkaline Phosphatase 65 Total Protein 6.4 Albumin 3.1 Globulin 3.3 Albumin/Globulin Ratio 0.9 L Vitamin B12 325 Folate 10.5 Valproic Acid 11/14/17 06:00 WBC RBC Hgb Hct MCV MCH MCHC RDW Plt Count MPV Gran % Lymph % (Auto) Kinney % (Auto) Eos % (Auto) Baso % (Auto) Gran # Lymph # (Auto) Kinney # (Auto) Eos # (Auto) Baso # (Auto) Sodium Potassium Chloride Carbon Dioxide Anion Gap BUN Creatinine Est GFR ( Amer) Est GFR (Non-Af Amer) Random Glucose Calcium Total Bilirubin AST ALT Alkaline Phosphatase Total Protein Albumin Globulin Albumin/Globulin Ratio Vitamin B12 Folate Valproic Acid < 10 L Attending/Attestation - Attestation I have personally seen and examined this patient.: Yes I have fully participated in the care of the patient.: Yes I have reviewed all pertinent clinical information: Yes Notes (Text): 11/14/17 16:38 Medical record note made by the resident after discussion with my direction and input after the patient was personally seen and examined by me. I have reviewed the chart and agree that the record accurately reflects by personal performance of the history, physical exam, data review, and medical decision-making, in the course for the patient. I have also personally directed the plan of care. 87 F with PMH of cholelithiasis, CHF , COPD/Asthma, recurrent UTI, seizure disorder, SP cholycystostomy last week for acute cholycystitis is admitted with recurrent seizure in [place], Depakotelevel is low, has been given 1 gram Depakote in ER, CT head is negative.There is no focal deficit.We will increase dose of Depakote to 500 mg BID, will get Neurology consult. Management plan was discussed in detail with patient and family.
[2017-11-12] MEDS ORDERED: Albuterol 0.083% Inhal Sol (2.5 mg/3 mL) UD IH PRN (18:52)
[2017-11-12 21:44] VITALS: BMI 29.5
[2017-11-12] MEDS ORDERED: Pneumococcal 23-Valent Vaccine IM ONE (21:44)
--- NOTE | 2017-11-12 22:45 | CARD ---
APPROVED REPORT EKG Measurement Heart [id number] <Conclusion> Sinus tachycardia Left axis deviation Left ventricular hypertrophy with repolarization abnormality Abnormal ECG
[2017-11-12] MEDS ORDERED: Sodium Chloride 0.9% 500 ML IV STA (23:02)
[2017-11-13] MEDS: Piperacillin/Tazobact 3.375 gm 100 ML IVPB SCH ×4 (05:51→23:51)
[2017-11-13 06:59] LABS: BASO # 0.03 K/mm3 (0.0-2.0); BASO % 0.3 % (0.0-3.0); EOS # 0.4 (0.0-0.7); EOS % 4.5 % (1.5-5.0); GRAN # 4.51 (1.4-6.5); GRAN % 51.1 % (50.0-68.0); HEMOGLOBIN 10.8 g/dL (12.0-16.0); LYMPH # 3.3 (1.2-3.4); LYMPH % 37.3 % (22.0-35.0); MEAN CELL VOLUME 93.2 fl (80.0-105.0); MEAN CORPUSCULAR HEMOGLOBIN 29.5 pg (25.0-35.0); MEAN CORPUSCULAR HGB CONC 31.7 g/dl (31.0-37.0); MEAN PLATELET VOLUME 9.5 fl (7.0-11.0); MONO # 0.6 (0.1-0.6); MONO % 6.8 % (1.0-6.0); RBC 3.66 10^6/uL (3.5-6.1); RED CELL DISTRIBUTION WIDTH 14.6 % (11.5-14.5); WHITE BLOOD COUNT 8.8 10^3/ul (4.5-11.0)
[2017-11-13 07:21] LABS: ALBUMIN 2.9 g/dL (3.0-4.8); ALT/SGPT 21 U/L (7-56); AST/SGOT 48 U/L (14-36); BLOOD UREA NITROGEN 20 mg/dL (7-21); CALCIUM 8.6 mg/dL (8.4-10.5); GFR AFRICAN-AMERICAN > 60; GFR NON-AFRICAN AMERICAN > 60
[2017-11-13] MEDS: Budesonide 0.25 mg/2 ml Inhal Susp UD IH SCH ×2 (08:11→19:31)
[2017-11-13] MEDS ORDERED: Divalproex 500 mg DR(BID formulation) PO SCH (10:00)
[2017-11-13 10:31] LABS: IRON 60 ug/dL (45-180)
[2017-11-13 10:41] LABS: % IRON SATURATION 28 % (20-55); TOTAL IRON BINDING CAPACITY 219 ug/dL (265-497)
[2017-11-13] MEDS: Pantoprazole 40 mg EC Tab PO SCH (10:41)
[2017-11-13 11:26] LABS: VENOUS BLOOD GAS BASE EXCESS 9.2 mmol/L (0.0-2.0); VENOUS BLOOD GAS PO2 39 mm/Hg (30-55); VENOUS BLOOD PH 7.37 (7.32-7.43)
[2017-11-13] MEDS ORDERED: Valproate 1,000 MG in Sodium Chloride 0.9% 100 ML IVPB ONE (11:48)
--- NOTE | 2017-11-13 12:07 | CP.PCM.PN ---
<Sofía Webster - Last Filed: 11/13/17 12:19> Subjective - Date & Time of Evaluation Date of Evaluation: 11/13/17 Time of Evaluation: 12:05 - Subjective Subjective: Internal Medicine Progress Note - Hospitalist Service Patient seen and examined at bedside. Per nursing no acute events overnight. Patient with low blood pressures, she is asymptomatic at this time. No reported seizures. Offering no complaints at this time. She is tolerating diet. Denies headaches, dizziness, cp, palpitations, sob, abdominal pain, urinary symptoms. Objective - Vital Signs/Intake and Output Vital Signs (last 24 hours): Temp Pulse Resp BP Pulse Ox 97.1 F L 75 20 86/56 L 99 11/13/17 06:00 11/13/17 08:17 11/13/17 06:00 11/13/17 06:00 11/13/17 06:00 Intake and Output: 11/13/17 11/13/17 06:59 18:59 Intake Total 0 Output Total 250 Balance -250 - Medications Medications: Current Medications Acetaminophen (Tylenol 325mg Tab) 650 mg PO Q6H PRN PRN Reason: Temperature >100.4 Last Admin: 11/13/17 11:36 Dose: 650 mg Albuterol Sulfate (Albuterol 0.083% Inhal Kisha (2.5 Mg/3 Ml) Ud) 2.5 mg IH [id number] PRN PRN Reason: Shortness of Breath Aripiprazole (Abilify) 5 mg PO HS [facility] Last Admin: 11/12/17 22:36 Dose: 5 mg Budesonide (Pulmicort Respules) 0.25 mg IH [id number] [facility] Last Admin: 11/13/17 08:11 Dose: 0.25 mg Clonazepam (Klonopin) 0.5 mg PO HS ANGIE PRN Reason: Protocol Last Admin: 11/12/17 22:37 Dose: 0.5 mg Divalproex Sodium (Depakote Dr(*Bid*)) 750 mg PO BID ANGIE PRN Reason: Protocol Piperacillin Sod/Tazobactam Sod (Zosyn 3.375 In Ns 100ml) 100 mls @ 200 mls/hr IVPB Q6 ANGIE PRN Reason: Protocol Stop: 11/13/17 12:29 Last Admin: 11/13/17 11:37 Dose: 200 mls/hr Valproate Sodium 1,000 mg/ (Sodium Chloride) 110 mls @ 100 mls/hr IVPB ONCE ONE Stop: 11/13/17 12:53 Sodium Chloride (Sodium Chloride 0.9%) 1,000 mls @ 75 mls/hr IV .[id number] [facility] Mirtazapine (Remeron) 15 mg PO HS [facility] Last Admin: 11/12/17 22:36 Dose: 15 mg Pantoprazole Sodium (Protonix Ec Tab) 40 mg PO DAILY [facility] Last Admin: 11/13/17 10:41 Dose: 40 mg - Labs Labs: 11/13/17 06:20 11/13/17 06:20 PT 11.5 SECONDS (9.4-12.5) 11/12/17 14:35 INR 1.01 (0.93-1.08) 11/12/17 14:35 APTT 30.7 Seconds (25.1-36.5) 11/12/17 14:35 - Additional Findings Additional findings: - Constitutional Appears: Non-toxic, No Acute Distress - Head Exam Head Exam: ATRAUMATIC, NORMOCEPHALIC - Eye Exam Eye Exam: EOMI, Normal appearance - ENT Exam ENT Exam: Mucous Membranes Moist - Respiratory Exam Respiratory Exam: NORMAL BREATHING PATTERN - Cardiovascular Exam Cardiovascular Exam: REGULAR RHYTHM, +S1, +S2 - GI/Abdominal Exam GI & Abdominal Exam: Soft. +cholecystostomy tube, non-tender to palpation absent: Distended, Firm, Guarding, Rebound, Rigid, Tenderness - Extremities Exam Extremities exam: Negative for: calf tenderness, pedal edema - Neurological Exam Neurological exam: Alert, CN II-XII Intact, Oriented x3 Additional comments: 5/5 strength in all four extremities - Psychiatric Exam Psychiatric exam: Normal Affect, Normal Mood - Skin Skin Exam: Dry, Intact, Normal Color Assessment and Plan - Assessment and Plan (Free Text) Assessment: A/P: Patient is a 87 year old female with past medical history significant for cholelithiasis and Cholecystitis s/p cholecystostomy tube, 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, COPD/asthma, recurrent UTIs, emphysema, depression, schizophrenia, HLD, dementia, seizure disorder, and hypothyroidism with breakthrough seizures; In the ER, depakote level was low Breakthrough Seizures with history of epilepsy -Stable afebrile -Valproic level was subtherapeutic on admission -Patient received 1gm Valproate IV in the ED -Repeat Valproic acid level still subtherapeutic this morning -We will increase Depakote to 750mg PO BID and repeat valproic acid level tomorrow -Head CT shows no acute findings -Seizure precautions -Ativan 2mg Q6 IV PRN for seizure -Neuro consult requested, help appreciated -PT evaluation ordered Cholecystitis s/p cholecystostomy -Abdominal/Pelvis CT: s/p cholecystostomy, no adverse findings, gallbladder is decompressed, no significant interval changes -No leukocytosis; no abdominal tenderness -Continue antibiotics; switched carbanenem to Zosyn to avoid possible interaction with depakote -ID on consult, help appreciated -ER requested general surgery consult; appreciate recs -No surgical intervention at this time Hx of CHF with preserved ejection fraction; diastolic dysfunction -CXR showing no active disease -EKG showing LVH, LAD, sinus tach -Echocardiogram done 11/06 significant for grade III reversible restrictive diastolic dysfunction of the LV -Lasix 40mg PO daily held due to low BP -I and O, daily weight Hypotension -Will hold lasix 40mg PO daily -Continue to monitor BPs -If no improvement, will start gentle hydration Hx of COPD -Unknown PFT value -NC 2L SaO2 goal >92% -Albuterol prn shortness of breath -Continue pulmicort Hx of HLD -Continue home Lipitor 10mg Hx of Dementia, Depression, and Schizophrenia -Continue home medications DVT/GI ppx -Lovenox 40mg Daily -Protonix 40mg Daily DISPO: Patient will follow up with Dr Sammy Ramsey her PMD upon discharge. When medically cleared, will discharge back to [facility]. Plan discussed with Dr Colón. Sofía Webster DO PGY-1 <Nicky Colón - Last Filed: 11/13/17 14:15> Objective - Vital Signs/Intake and Output Vital Signs (last 24 hours): Temp Pulse Resp BP Pulse Ox 97.1 F L 75 20 86/56 L 99 11/13/17 06:00 11/13/17 08:17 11/13/17 06:00 11/13/17 06:00 11/13/17 06:00 Intake and Output: 11/13/17 11/13/17 06:59 18:59 Intake Total 0 Output Total 250 Balance -250 - Medications Medications: Current Medications Acetaminophen (Tylenol 325mg Tab) 650 mg PO Q6H PRN PRN Reason: Temperature >100.4 Last Admin: 11/13/17 11:36 Dose: 650 mg Albuterol Sulfate (Albuterol 0.083% Inhal Kisha (2.5 Mg/3 Ml) Ud) 2.5 mg IH [id number] PRN PRN Reason: Shortness of Breath Aripiprazole (Abilify) 5 mg PO HS [facility] Last Admin: 11/12/17 22:36 Dose: 5 mg Budesonide (Pulmicort Respules) 0.25 mg IH [id number] [facility] Last Admin: 11/13/17 08:11 Dose: 0.25 mg Clonazepam (Klonopin) 0.5 mg PO HS [facility] PRN Reason: Protocol Last Admin: 11/12/17 22:37 Dose: 0.5 mg Divalproex Sodium (Depakote Dr (*Bid*)) 750 mg PO BID ANGIE PRN Reason: Protocol Lorazepam (Ativan) 2 mg IVP Q6H PRN; Protocol PRN Reason: Seizure activity Mirtazapine (Remeron) 15 mg PO HS [facility] Last Admin: 11/12/17 22:36 Dose: 15 mg Pantoprazole Sodium (Protonix Ec Tab) 40 mg PO DAILY [facility] Last Admin: 11/13/17 10:41 Dose: 40 mg - Labs Labs: 11/13/17 06:20 11/13/17 06:20 PT 11.5 SECONDS (9.4-12.5) 11/12/17 14:35 INR 1.01 (0.93-1.08) 11/12/17 14:35 APTT 30.7 Seconds (25.1-36.5) 11/12/17 14:35 Attending/Attestation - Attestation I have personally seen and examined this patient.: Yes I have fully participated in the care of the patient.: Yes I have reviewed all pertinent clinical information, including history, physical exam and plan: Yes Notes (Text): 11/13/17 14:09 Attending note; Patient seen and examined with resident. Patient is a 87 year old female with past medical history significant for cholelithiasis and Cholecystitis s/p cholecystostomy tube, CHF with grade III reversible restrictive diastolic dysfunction, COPD/asthma, recurrent UTIs, emphysema, depression, schizophrenia,dementia, seizure disorder, and hypothyroidism admitted from the halfway because of seizure. Patient was on imipenem. Patient's Depakote level was low. Got 1 g of IV Depakote yesterday in the ER. Case discussed with neurology in detail. Repeat Depakote level ordered. Monitor closely. Currently patient is seizure free. We'll follow up with neurology for further recommendation. CT head is negative. History of cholecystitis; status post cholecystostomy tube. Monitor drainage output .CT is negative. Surgery evaluation appreciated. Imipenem stopped. Started on IV Zosyn. ID evaluation appreciated. Low blood pressure; monitor closely. Lasix discontinued. Case discussed with patient's daughter Quin by the bedside. Patient is DNI DNR. Upon discharge the patient will follow-up with PMD Dr. Ramsey.
[2017-11-13] MEDS ORDERED: Sodium Chloride 0.9% 1,000 ML IV SCH (12:15)
[2017-11-13 16:16] LABS: FERRITIN 80.3 ng/mL
[2017-11-13] MEDS ORDERED: Dexamethasone 10 MG in Sodium Chloride 0.9% 50 ML IV ONE (16:18)
[2017-11-13] MEDS ORDERED: Magnesium Sulfate 1 gm in D5W 1 GM/100 ML BAG IVPB ONE (16:19)
--- NOTE | 2017-11-13 16:23 | CP.PCM.CON ---
History of Present Illness - History of Present Illness History of Present Illness: Neurology Consultation Note: Mrs. Jones is an 87-year-old [facility] resident with epilepsy, who had two seizures and was admitted for evaluation. Her depakote level was less than 10. She was loaded with 1000 mg IV and continued on 500 mg BID. Labs were checked again and she was still subtherapeutic. We loaded her again and she has a dose of 750 BID. She complains of headaches, but has not had any seizures since hospitalization. She is pleasant, conversant and did not have any other complaints. Review of Systems - Review of Systems All systems: reviewed and no additional remarkable complaints except Past Patient History - Infectious Disease Hx of Infectious Diseases: None - Tetanus Immunizations Tetanus Immunization: Unknown - Past Social History Smoking Status: Former Smoker - CARDIAC Hx Congestive Heart Failure: Yes - PULMONARY Hx Chronic Obstructive Pulmonary Disease (COPD): Yes - NEUROLOGICAL Hx Dementia: Yes Hx Migraine: Yes Hx Seizures: Yes (on Depakote) - HEENT Hx HEENT Problems: No - RENAL Hx Chronic Kidney Disease: No - ENDOCRINE/METABOLIC Hx Endocrine Disorders: No - HEMATOLOGICAL/ONCOLOGICAL Hx Blood Disorders: No - INTEGUMENTARY Hx Dermatological Problems: No - MUSCULOSKELETAL/RHEUMATOLOGICAL Hx Unsteady Gait: Yes Other/Comment: Recent falls - GASTROINTESTINAL Hx Gastrointestinal Disorders: No - GENITOURINARY/GYNECOLOGICAL Hx Incontinence: Yes - PSYCHIATRIC Hx Anxiety: Yes Hx Depression: Yes Hx Schizophrenia: Yes Hx Substance Use: No - SURGICAL HISTORY Hx Eye Surgery: Yes Hx Orthopedic Surgery: Yes (left shldr, left hand) Other/Comment: Hernia repair - ANESTHESIA Hx Anesthesia Reactions: No Hx Malignant Hyperthermia: No Meds Allergies/Adverse Reactions: Allergies Allergy/AdvReac Type Severity Reaction Status Date / Time moxifloxacin Allergy ITCHING Verified 11/12/17 14:53 - Medications Medications: Current Medications Acetaminophen (Tylenol 325mg Tab) 650 mg PO Q6H PRN PRN Reason: Temperature >100.4 Last Admin: 11/13/17 11:36 Dose: 650 mg Albuterol Sulfate (Albuterol 0.083% Inhal Kisha (2.5 Mg/3 Ml) Ud) 2.5 mg IH [id number] PRN PRN Reason: Shortness of Breath Aripiprazole (Abilify) 5 mg PO HS ANGIE Last Admin: 11/12/17 22:36 Dose: 5 mg Budesonide (Pulmicort Respules) 0.25 mg IH [id number] [facility] Last Admin: 11/13/17 08:11 Dose: 0.25 mg Clonazepam (Klonopin) 0.5 mg PO HS ANGIE PRN Reason: Protocol Last Admin: 11/12/17 22:37 Dose: 0.5 mg Divalproex Sodium (Depakote Dr (*Bid*)) 750 mg PO BID ANGIE PRN Reason: Protocol Dexamethasone 10 mg/ Sodium (Chloride) 52.5 mls @ 150 mls/hr IV ONCE ONE Stop: 11/13/17 16:39 Magnesium Sulfate/Dextrose (Magnesium Sulfate 1 Gm/100 Ml D5w) 1 gm in 100 mls @ 100 mls/hr IVPB ONCE ONE Stop: 11/13/17 17:18 Lorazepam (Ativan) 2 mg IVP Q6H PRN; Protocol PRN Reason: Seizure activity Mirtazapine (Remeron) 15 mg PO HS [facility] Last Admin: 11/12/17 22:36 Dose: 15 mg Pantoprazole Sodium (Protonix Ec Tab) 40 mg PO DAILY [facility] Last Admin: 11/13/17 10:41 Dose: 40 mg Physical Exam - Neurological Exam Neurological exam: CN II-XII Intact, Oriented x3, Reflexes Normal Additional comments: Gait not checked. Moves all extremities equally with 4/5 strength. Sensation is intact. Plantar responses are downgoing bilaterally. Results - Vital Signs Recent Vital Signs: Last Vital Signs Temp 97.1 F L 11/13/17 06:00 Pulse 81 11/13/17 14:00 Resp 20 11/13/17 06:00 BP 86/56 L 11/13/17 06:00 Pulse Ox 99 11/13/17 06:00 - Labs Result Diagrams: 11/13/17 06:20 11/13/17 06:20 Labs: Laboratory Results - last 24 hr 11/12/17 11/13/17 11/13/17 22:00 06:20 06:20 WBC 8.8 RBC 3.66 Hgb 10.8 L Hct 34.1 L MCV 93.2 MCH 29.5 MCHC 31.7 RDW 14.6 H Plt Count 295 MPV 9.5 Gran % 51.1 Lymph % (Auto) 37.3 H [place] % (Auto) 6.8 H Eos % (Auto) 4.5 Baso % (Auto) 0.3 Gran # 4.51 Lymph # (Auto) 3.3 [place] # (Auto) 0.6 Eos # (Auto) 0.4 Baso # (Auto) 0.03 Retic Count pO2 VBG pH VBG pCO2 VBG HCO3 VBG Total CO2 VBG O2 Sat (Calc) VBG Base Excess VBG Potassium Glucose Lactate FiO2 Sodium 146 Potassium 3.9 Chloride 103 Carbon Dioxide 36 H Anion Gap 11 BUN 20 Creatinine 0.5 L Est GFR ( Amer) > 60 Est GFR (Non-Af Amer) > 60 Random Glucose 103 Lactic Acid Calcium 8.6 Phosphorus 4.0 Magnesium 2.2 Iron TIBC % Saturation Transferrin Ferritin Total Bilirubin 0.3 AST 48 H ALT 21 Alkaline Phosphatase 65 Total Protein 5.8 Albumin 2.9 L Globulin 2.9 Albumin/Globulin Ratio 1.0 L Venous Blood Potassium Valproic Acid Blood Type Confirm O POSITIVE 11/13/17 11/13/17 11/13/17 09:30 09:30 09:30 WBC RBC Hgb Hct MCV MCH MCHC RDW Plt Count MPV Gran % Lymph % (Auto) [place] % (Auto) Eos % (Auto) Baso % (Auto) Gran # Lymph # (Auto) [place] # (Auto) Eos # (Auto) Baso # (Auto) Retic Count pO2 VBG pH VBG pCO2 VBG HCO3 VBG Total CO2 VBG O2 Sat (Calc) VBG Base Excess VBG Potassium Glucose Lactate FiO2 Sodium Potassium Chloride Carbon Dioxide Anion Gap BUN Creatinine Est GFR ( Amer) Est GFR (Non-Af Amer) Random Glucose Lactic Acid Calcium Phosphorus Magnesium Iron 60 TIBC 219 L % Saturation 28 Transferrin 162.86 L Ferritin 80.3 Total Bilirubin AST ALT Alkaline Phosphatase Total Protein Albumin Globulin Albumin/Globulin Ratio Venous Blood Potassium Valproic Acid Blood Type Confirm 11/13/17 11/13/17 11/13/17 09:30 11:20 11:20 WBC RBC Hgb Hct MCV MCH MCHC RDW Plt Count MPV Gran % Lymph % (Auto) [place] % (Auto) Eos % (Auto) Baso % (Auto) Gran # Lymph # (Auto) [place] # (Auto) Eos # (Auto) Baso # (Auto) Retic Count 1.24 pO2 39 VBG pH 7.37 VBG pCO2 64.0 H VBG HCO3 37.0 H VBG Total CO2 39.0 H VBG O2 Sat (Calc) 79.7 H VBG Base Excess 9.2 H VBG Potassium 4.5 Glucose 123 H Lactate 1.1 FiO2 21.0 Sodium 143.0 Potassium Chloride 108.0 H Carbon Dioxide Anion Gap BUN Creatinine Est GFR ( Amer) Est GFR (Non-Af Amer) Random Glucose Lactic Acid 1.1 Calcium Phosphorus Magnesium Iron TIBC % Saturation Transferrin Ferritin Total Bilirubin AST ALT Alkaline Phosphatase Total Protein Albumin Globulin Albumin/Globulin Ratio Venous Blood Potassium 4.5 Valproic Acid Blood Type Confirm 11/13/17 11:20 WBC RBC Hgb Hct MCV MCH MCHC RDW Plt Count MPV Gran % Lymph % (Auto) [place] % (Auto) Eos % (Auto) Baso % (Auto) Gran # Lymph # (Auto) [place] # (Auto) Eos # (Auto) Baso # (Auto) Retic Count pO2 VBG pH VBG pCO2 VBG HCO3 VBG Total CO2 VBG O2 Sat (Calc) VBG Base Excess VBG Potassium Glucose Lactate FiO2 Sodium Potassium Chloride Carbon Dioxide Anion Gap BUN Creatinine Est GFR ( Amer) Est GFR (Non-Af Amer) Random Glucose Lactic Acid Calcium Phosphorus Magnesium Iron TIBC % Saturation Transferrin Ferritin Total Bilirubin AST ALT Alkaline Phosphatase Total Protein Albumin Globulin Albumin/Globulin Ratio Venous Blood Potassium Valproic Acid < 10 L Blood Type Confirm Assessment & Plan (1) Recurrent seizures Assessment and Plan: Due to subtherapeutic depakote levels. We will recheck her levels tomorrow and discharge home on 750 mg BID of depakote. No further studies are needed at this time. Thank you. Status: Acute
[2017-11-13 16:47] LABS: FOLATE 10.5 ng/mL
--- NOTE | 2017-11-13 16:50 | CP.PCM.CON ---
History of Present Illness - History of Present Illness History of Present Illness: Infectious Disease Consultation: November 13, 2017 87 yo female with past medical history that includes cholelithiasis, recent episode of cholecystitis s/p cholecystotomy tube, CHF, COPD, depression, dementia, seizure disorder who [place] [facility] [place] two witnessed seizures. Patient was recently in the hospital for cholecystitis when she had cholecystotomy tube placed. Patient was with daughter who witnessed the seizures. She is currently awake and alert but slightly confused. History was supplemented by her daughter. Patient states she has abdominal pain at drain site. She rates pain as mild. She describes it as constant cramping. Her daughter also reports dysuria and melanotic bowel movement with prior constipation. She denies any aggravating or alleviating factors. Patient is tolerating oral intake of liquids and solid foods within nausea/vomiting or exacerbation of pain. Infectious Disease called for antibiotic management. PMHx: cholelithiasis, recent episode of cholecystitis s/p cholecystotomy tube, CHF, COPD, asthma, recurrent UTIs, emphysema, depression, HLD, dementia, seizure disorder, hypothyroidism PSHx: cholecystectomy, ventral hernia repair, left inguinal hernia repair, left shoulder surgery, left hand surgery. Allergies: Moxifloxacin Social Hx: No Tobacco or illicit drug use Ex-EtOH use. Active Medications Acetaminophen (Tylenol 325mg Tab) 650 mg PO Q6H PRN PRN Reason: Temperature >100.4 Last Admin: 11/13/17 11:36 Dose: 650 mg Albuterol Sulfate (Albuterol 0.083% Inhal Kisha (2.5 Mg/3 Ml) Ud) 2.5 mg IH [id number] PRN PRN Reason: Shortness of Breath Aripiprazole (Abilify) 5 mg PO HS NAGIE Last Admin: 11/12/17 22:36 Dose: 5 mg Budesonide (Pulmicort Respules) 0.25 mg IH [id number] ANGIE Last Admin: 11/13/17 08:11 Dose: 0.25 mg Clonazepam (Klonopin) 0.5 mg PO HS ANGIE PRN Reason: Protocol Last Admin: 11/12/17 22:37 Dose: 0.5 mg Divalproex Sodium (Depakote Dr (*Bid*)) 750 mg PO BID ANGIE PRN Reason: Protocol Dexamethasone 10 mg/ Sodium (Chloride) 52.5 mls @ 150 mls/hr IV ONCE ONE Stop: 11/13/17 16:39 Magnesium Sulfate/Dextrose (Magnesium Sulfate 1 Gm/100 Ml D5w) 1 gm in 100 mls @ 100 mls/hr IVPB ONCE ONE Stop: 11/13/17 17:18 Lorazepam (Ativan) 2 mg IVP Q6H PRN; Protocol PRN Reason: Seizure activity Mirtazapine (Remeron) 15 mg PO HS [facility] Last Admin: 11/12/17 22:36 Dose: 15 mg Pantoprazole Sodium (Protonix Ec Tab) 40 mg PO DAILY ANGIE Last Admin: 11/13/17 10:41 Dose: 40 mg Family Hx: none given ROS: Seizures, AMS. No fevers, chills, nausea, vomiting, diarrhea, headaches, dizziness, chest pain , abdominal pain, melena, hematuria, hematemesis, hematochezia, depression, anxiety. Past Patient History - Infectious Disease Hx of Infectious Diseases: None - Tetanus Immunizations Tetanus Immunization: Unknown - Past Social History Smoking Status: Former Smoker - CARDIAC Hx Congestive Heart Failure: Yes - PULMONARY Hx Chronic Obstructive Pulmonary Disease (COPD): Yes - NEUROLOGICAL Hx Dementia: Yes Hx Migraine: Yes Hx Seizures: Yes (on Depakote) - HEENT Hx HEENT Problems: No - RENAL Hx Chronic Kidney Disease: No - ENDOCRINE/METABOLIC Hx Endocrine Disorders: No - HEMATOLOGICAL/ONCOLOGICAL Hx Blood Disorders: No - INTEGUMENTARY Hx Dermatological Problems: No - MUSCULOSKELETAL/RHEUMATOLOGICAL Hx Unsteady Gait: Yes Other/Comment: Recent falls - GASTROINTESTINAL Hx Gastrointestinal Disorders: No - GENITOURINARY/GYNECOLOGICAL Hx Incontinence: Yes - PSYCHIATRIC Hx Anxiety: Yes Hx Depression: Yes Hx Schizophrenia: Yes Hx Substance Use: No - SURGICAL HISTORY Hx Eye Surgery: Yes Hx Orthopedic Surgery: Yes (left shldr, left hand) Other/Comment: Hernia repair - ANESTHESIA Hx Anesthesia Reactions: No Hx Malignant Hyperthermia: No Meds Allergies/Adverse Reactions: Allergies Allergy/AdvReac Type Severity Reaction Status Date / Time moxifloxacin Allergy ITCHING Verified 11/12/17 14:53 - Medications Medications: Current Medications Acetaminophen (Tylenol 325mg Tab) 650 mg PO Q6H PRN PRN Reason: Temperature >100.4 Last Admin: 11/13/17 11:36 Dose: 650 mg Albuterol Sulfate (Albuterol 0.083% Inhal Kisha (2.5 Mg/3 Ml) Ud) 2.5 mg IH [id number] PRN PRN Reason: Shortness of Breath Aripiprazole (Abilify) [address] [facility] Last Admin: 11/12/17 22:36 Dose: 5 mg Budesonide (Pulmicort Respules) 0.25 mg IH [id number] [facility] Last Admin: 11/13/17 08:11 Dose: 0.25 mg Clonazepam (Klonopin) 0.[address] [facility] PRN Reason: Protocol Last Admin: 11/12/17 22:37 Dose: 0.5 mg Divalproex Sodium (Depakote Dr (*Bid*)) 750 mg PO BID [facility] PRN Reason: Protocol Dexamethasone 10 mg/ Sodium (Chloride) 52.5 mls @ 150 mls/hr IV ONCE ONE Stop: 11/13/17 16:39 Magnesium Sulfate/Dextrose (Magnesium Sulfate 1 Gm/100 Ml D5w) 1 gm in 100 mls @ 100 mls/hr IVPB ONCE ONE Stop: 11/13/17 17:18 Lorazepam (Ativan) 2 mg IVP Q6H PRN; Protocol PRN Reason: Seizure activity Mirtazapine (Remeron) [address] [facility] Last Admin: 11/12/17 22:36 Dose: 15 mg Pantoprazole Sodium (Protonix Ec Tab) 40 mg PO DAILY [facility] Last Admin: 11/13/17 10:41 Dose: 40 mg Physical Exam - Constitutional Appears: No Acute Distress, Chronically Ill - Head Exam Head Exam: ATRAUMATIC, NORMOCEPHALIC - Eye Exam Eye Exam: EOMI, Normal appearance, PERRL Pupil Exam: NORMAL ACCOMODATION, PERRL - ENT Exam ENT Exam: Mucous Membranes Moist, Normal External Ear Exam, TM's Normal Bilaterally - Respiratory Exam Respiratory Exam: Clear to Auscultation Bilateral, NORMAL BREATHING PATTERN. absent: Rales, Rhonchi, Wheezes - Cardiovascular Exam Cardiovascular Exam: REGULAR RHYTHM, RRR, +S1, +S2 - GI/Abdominal Exam GI & Abdominal Exam: Normal Bowel Sounds, Soft, Tenderness (at drain tube site.) Additional comments: s/p cholecystotomy tube - Extremities Exam Extremities exam: Positive for: normal capillary refill, pedal pulses present - Neurological Exam Neurological exam: Alert, CN II-XII Intact, Oriented x3 - Psychiatric Exam Psychiatric exam: Normal Affect, Normal Mood - Skin Skin Exam: Dry, Intact, Normal Color, Warm Results - Vital Signs Recent Vital Signs: Last Vital Signs Temp 97.1 F L 11/13/17 06:00 Pulse 81 11/13/17 14:00 Resp 20 11/13/17 06:00 BP 86/56 L 11/13/17 06:00 Pulse Ox 99 11/13/17 06:00 - Labs Result Diagrams: 11/13/17 06:20 11/13/17 06:20 Labs: Laboratory Results - last 24 hr 11/12/17 11/13/17 11/13/17 22:00 06:20 06:20 WBC 8.8 RBC 3.66 Hgb 10.8 L Hct 34.1 L MCV 93.2 MCH 29.5 MCHC 31.7 RDW 14.6 H Plt Count 295 MPV 9.5 Gran % 51.1 Lymph % (Auto) 37.3 H [place] % (Auto) 6.8 H Eos % (Auto) 4.5 Baso % (Auto) 0.3 Gran # 4.51 Lymph # (Auto) 3.3 [place] # (Auto) 0.6 Eos # (Auto) 0.4 Baso # (Auto) 0.03 Retic Count pO2 VBG pH VBG pCO2 VBG HCO3 VBG Total CO2 VBG O2 Sat (Calc) VBG Base Excess VBG Potassium Glucose Lactate FiO2 Sodium 146 Potassium 3.9 Chloride 103 Carbon Dioxide 36 H Anion Gap 11 BUN 20 Creatinine 0.5 L Est GFR ( Amer) > 60 Est GFR (Non-Af Amer) > 60 Random Glucose 103 Lactic Acid Calcium 8.6 Phosphorus 4.0 Magnesium 2.2 Iron TIBC % Saturation Transferrin Ferritin Total Bilirubin 0.3 AST 48 H ALT 21 Alkaline Phosphatase 65 Total Protein 5.8 Albumin 2.9 L Globulin 2.9 Albumin/Globulin Ratio 1.0 L Venous Blood Potassium Valproic Acid Blood Type Confirm O POSITIVE 11/13/17 11/13/17 11/13/17 09:30 09:30 09:30 WBC RBC Hgb Hct MCV MCH MCHC RDW Plt Count MPV Gran % Lymph % (Auto) [place] % (Auto) Eos % (Auto) Baso % (Auto) Gran # Lymph # (Auto) [place] # (Auto) Eos # (Auto) Baso # (Auto) Retic Count pO2 VBG pH VBG pCO2 VBG HCO3 VBG Total CO2 VBG O2 Sat (Calc) VBG Base Excess VBG Potassium Glucose Lactate FiO2 Sodium Potassium Chloride Carbon Dioxide Anion Gap BUN Creatinine Est GFR ( Amer) Est GFR (Non-Af Amer) Random Glucose Lactic Acid Calcium Phosphorus Magnesium Iron 60 TIBC 219 L % Saturation 28 Transferrin 162.86 L Ferritin 80.3 Total Bilirubin AST ALT Alkaline Phosphatase Total Protein Albumin Globulin Albumin/Globulin Ratio Venous Blood Potassium Valproic Acid Blood Type Confirm 11/13/17 11/13/17 11/13/17 09:30 11:20 11:20 WBC RBC Hgb Hct MCV MCH MCHC RDW Plt Count MPV Gran % Lymph % (Auto) [place] % (Auto) Eos % (Auto) Baso % (Auto) Gran # Lymph # (Auto) [place] # (Auto) Eos # (Auto) Baso # (Auto) Retic Count 1.24 pO2 39 VBG pH 7.37 VBG pCO2 64.0 H VBG HCO3 37.0 H VBG Total CO2 39.0 H VBG O2 Sat (Calc) 79.7 H VBG Base Excess 9.2 H VBG Potassium 4.5 Glucose 123 H Lactate 1.1 FiO2 21.0 Sodium 143.0 Potassium Chloride 108.0 H Carbon Dioxide Anion Gap BUN Creatinine Est GFR ( Amer) Est GFR (Non-Af Amer) Random Glucose Lactic Acid 1.1 Calcium Phosphorus Magnesium Iron TIBC % Saturation Transferrin Ferritin Total Bilirubin AST ALT Alkaline Phosphatase Total Protein Albumin Globulin Albumin/Globulin Ratio Venous Blood Potassium 4.5 Valproic Acid Blood Type Confirm 11/13/17 11:20 WBC RBC Hgb Hct MCV MCH MCHC RDW Plt Count MPV Gran % Lymph % (Auto) [place] % (Auto) Eos % (Auto) Baso % (Auto) Gran # Lymph # (Auto) [place] # (Auto) Eos # (Auto) Baso # (Auto) Retic Count pO2 VBG pH VBG pCO2 VBG HCO3 VBG Total CO2 VBG O2 Sat (Calc) VBG Base Excess VBG Potassium Glucose Lactate FiO2 Sodium Potassium Chloride Carbon Dioxide Anion Gap BUN Creatinine Est GFR ( Amer) Est GFR (Non-Af Amer) Random Glucose Lactic Acid Calcium Phosphorus Magnesium Iron TIBC % Saturation Transferrin Ferritin Total Bilirubin AST ALT Alkaline Phosphatase Total Protein Albumin Globulin Albumin/Globulin Ratio Venous Blood Potassium Valproic Acid < 10 L Blood Type Confirm Assessment & Plan - Assessment and Plan (Free Text) Assessment: 87 yo female admitted for seizures given recent cholecystectomy. Patient with drain still in place with mild tenderness. Was on Meropenem but this is contraindicated in patient's with seizures. Switched to Zosyn for antibiotic coverage for now. Awaiting cultures. As of now, cultures have been negative. No positive cultures from prior hospitalization. Supportive care. Thank you for allowing me to participate in the care of the patient, we will follow with you.
[2017-11-13] MEDS: Divalproex 250 mg DR (BID formulation) PO SCH (16:58)
[2017-11-14] MEDS: Piperacillin/Tazobact 3.375 gm 100 ML IVPB SCH ×3 (05:27→18:49)
[2017-11-14 06:24] LABS: BASO # 0.01 K/mm3 (0.0-2.0); BASO % 0.1 % (0.0-3.0); GRAN # 5.73 (1.4-6.5); GRAN % 78.6 % (50.0-68.0); HEMOGLOBIN 10.8 g/dL (12.0-16.0); LYMPH # 1.4 (1.2-3.4); LYMPH % 19.8 % (22.0-35.0); MEAN CELL VOLUME 93.2 fl (80.0-105.0); MEAN CORPUSCULAR HEMOGLOBIN 29.3 pg (25.0-35.0); MEAN CORPUSCULAR HGB CONC 31.4 g/dl (31.0-37.0); MEAN PLATELET VOLUME 9.4 fl (7.0-11.0); MONO # 0.1 (0.1-0.6); MONO % 1.5 % (1.0-6.0); RBC 3.69 10^6/uL (3.5-6.1); RED CELL DISTRIBUTION WIDTH 14.2 % (11.5-14.5); WHITE BLOOD COUNT 7.3 10^3/ul (4.5-11.0)
[2017-11-14 07:19] LABS: ALB/GLOB RATIO 0.9 (1.1-1.8); ALBUMIN 3.1 g/dL (3.0-4.8); ALT/SGPT 36 U/L (7-56); AST/SGOT 59 U/L (14-36); BLOOD UREA NITROGEN 18 mg/dL (7-21); CALCIUM 8.7 mg/dL (8.4-10.5); GFR AFRICAN-AMERICAN > 60; GFR NON-AFRICAN AMERICAN > 60
[2017-11-14] MEDS: Budesonide 0.25 mg/2 ml Inhal Susp UD IH SCH ×2 (07:24→20:34)
[2017-11-14] MEDS: Pantoprazole 40 mg EC Tab PO SCH (09:51)
[2017-11-14] MEDS: Divalproex 250 mg DR (BID formulation) PO SCH ×2 (09:52→22:07)
--- NOTE | 2017-11-14 13:18 | CP.PCM.PN ---
Subjective - Date & Time of Evaluation Date of Evaluation: 11/14/17 Time of Evaluation: 13:10 - Subjective Subjective: Ms. Jones was seenand examined at the bedside. She is alert, able to participate in a pleasant conversation. She denies any lightheadedness, weakness , claims of experiencing headache last night but not right now. She follows commands. Her valproic level is still less than 10.There was no untoward events overnight. Objective - Vital Signs/Intake and Output Vital Signs (last 24 hours): Temp Pulse Resp BP Pulse Ox 97 F L 75 22 133/77 99 11/14/17 09:13 11/14/17 09:13 11/14/17 09:13 11/14/17 09:13 11/14/17 09:13 Intake and Output: 11/14/17 11/14/17 06:59 18:59 Intake Total 360 Output Total 150 Balance 210 - Medications Medications: Current Medications Acetaminophen (Tylenol 325mg Tab) 650 mg PO Q6H PRN PRN Reason: Temperature >100.4 Last Admin: 11/14/17 09:51 Dose: 650 mg Albuterol Sulfate (Albuterol 0.083% Inhal Kisha (2.5 Mg/3 Ml) Ud) 2.5 mg IH [id number] PRN PRN Reason: Shortness of Breath Aripiprazole (Abilify) 5 mg PO HS [facility] Last Admin: 11/13/17 21:56 Dose: 5 mg Budesonide (Pulmicort Respules) 0.25 mg IH [id number] [facility] Last Admin: 11/14/17 07:24 Dose: 0.25 mg Clonazepam (Klonopin) 0.5 mg PO [facility] PRN Reason: Protocol Last Admin: 11/13/17 21:56 Dose: 0.5 mg Divalproex Sodium (Depakote Dr (*Bid*)) 500 mg PO Q12 ANGIE PRN Reason: Protocol Piperacillin Sod/Tazobactam Sod (Zosyn 3.375 In Ns 100ml) 100 mls @ 200 mls/hr IVPB Q6 ANGIE PRN Reason: Protocol Last Admin: 11/14/17 05:27 Dose: 200 mls/hr Lorazepam (Ativan) 2 mg IVP Q6H PRN; Protocol PRN Reason: Seizure activity Mirtazapine (Remeron) 15 mg PO HS [facility] Last Admin: 11/13/17 21:56 Dose: 15 mg Pantoprazole Sodium (Protonix Ec Tab) 40 mg PO DAILY [facility] Last Admin: 11/14/17 09:51 Dose: 40 mg - Labs Labs: 11/14/17 06:00 11/14/17 06:00 PT 11.5 SECONDS (9.4-12.5) 11/12/17 14:35 INR 1.01 (0.93-1.08) 11/12/17 14:35 APTT 30.7 Seconds (25.1-36.5) 11/12/17 14:35 - Constitutional Appears: No Acute Distress - Head Exam Head Exam: NORMAL INSPECTION - Eye Exam Pupil Exam: PERRL - Neurological Exam Neurological Exam: Alert, Awake Neuro motor strength exam: Left Upper Extremity: 4, Right Upper Extremity: 4, Left Lower Extremity: 3, Right Lower Extremity: 3 Additional comments: neurological unchanged from previous examination. Assessment and Plan (1) Seizures Assessment & Plan: Case discussed with Dr. Reese, continue all current medical regimen with valproic level remains suboptimal despite 2 doses of valproate. The patient is also receiving abilify which can cause the valproic to metabolize faster, will add vimpat 100 mg PO q12 and decrease depakote dose to 500 mg PO Q 12. After first dose of vimpat , may transfer patient to [facility]. Status: Chronic
[2017-11-14] MEDS ORDERED: Home Med 1 UNIT PO SCH (13:30)
--- NOTE | 2017-11-14 14:21 | CP.PCM.PN ---
<Sue Ivan - Last Filed: 11/14/17 14:21> Subjective - Date & Time of Evaluation Date of Evaluation: 11/14/17 Time of Evaluation: 14:21 - Subjective Subjective: Sue Ivan, PGY1, Progress Note for Dr Colón: Patient seen and examined at bedside. No acute events overnight. Pt reports BM yesterday. Denies any further seizure episodes, nausea, vomiting, abdominal pain , syncope, dizziness, leg swelling. Objective - Vital Signs/Intake and Output Vital Signs (last 24 hours): Temp Pulse Resp BP Pulse Ox 97 F L 75 22 133/77 99 11/14/17 09:13 11/14/17 09:13 11/14/17 09:13 11/14/17 09:13 11/14/17 09:13 Intake and Output: 11/14/17 11/14/17 06:59 18:59 Intake Total 360 540 Output Total 150 Balance 210 540 - Medications Medications: Current Medications Acetaminophen (Tylenol 325mg Tab) 650 mg PO Q6H PRN PRN Reason: Temperature >100.4 Last Admin: 11/14/17 09:51 Dose: 650 mg Albuterol Sulfate (Albuterol 0.083% Inhal Kisha (2.5 Mg/3 Ml) Ud) 2.5 mg IH [id number] PRN PRN Reason: Shortness of Breath Aripiprazole (Abilify) 5 mg PO HS ANGIE Last Admin: 11/13/17 21:56 Dose: 5 mg Budesonide (Pulmicort Respules) 0.25 mg IH [id number] ANGIE Last Admin: 11/14/17 07:24 Dose: 0.25 mg Clonazepam (Klonopin) 0.5 mg PO HS ANGIE PRN Reason: Protocol Last Admin: 11/13/17 21:56 Dose: 0.5 mg Divalproex Sodium (Depakote Dr (*Bid*)) 500 mg PO Q12 ANGIE PRN Reason: Protocol Home Med (Home Med) 1 unit PO BID ANGIE Piperacillin Sod/Tazobactam Sod (Zosyn 3.375 In Ns 100ml) 100 mls @ 200 mls/hr IVPB Q6 ANGIE PRN Reason: Protocol Last Admin: 11/14/17 05:27 Dose: 200 mls/hr Lorazepam (Ativan) 2 mg IVP Q6H PRN; Protocol PRN Reason: Seizure activity Mirtazapine (Remeron) 15 mg PO HS [facility] Last Admin: 11/13/17 21:56 Dose: 15 mg Pantoprazole Sodium (Protonix Ec Tab) 40 mg PO DAILY [facility] Last Admin: 11/14/17 09:51 Dose: 40 mg - Labs Labs: 11/14/17 06:00 11/14/17 06:00 PT 11.5 SECONDS (9.4-12.5) 11/12/17 14:35 INR 1.01 (0.93-1.08) 11/12/17 14:35 APTT 30.7 Seconds (25.1-36.5) 11/12/17 14:35 - Constitutional Appears: Non-toxic, No Acute Distress - Head Exam Head Exam: ATRAUMATIC, NORMOCEPHALIC - Eye Exam Eye Exam: EOMI, PERRL. absent: Conjunctival injection, Nystagmus, Scleral icterus Pupil Exam: NORMAL ACCOMODATION, PERRL. absent: Fixed, Irregular, Unequal - ENT Exam ENT Exam: Mucous Membranes Moist - Neck Exam Neck Exam: Full ROM - Respiratory Exam Respiratory Exam: Clear to Ausculation Bilateral, NORMAL BREATHING PATTERN. absent: Accessory Muscle Use, Decreased Breath Sounds, Rales, Rhonchi, Wheezes, Respiratory Distress, Stridor - Cardiovascular Exam Cardiovascular Exam: RRR, +S1, +S2. absent: Murmur - GI/Abdominal Exam GI & Abdominal Exam: Soft, Normal Bowel Sounds. absent: Distended, Firm, Guarding, Tenderness, Mass, Organomegaly, Rebound - Extremities Exam Extremities Exam: Normal Inspection. 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 Increased patient's depakote level to 500 PO BID and added Vimpat 100 mg PO BID , will monitor: Breakthrough Seizures with history of epilepsy -Stable, afebrile -Valproic level was subtherapeutic on admission. repeat valproic acid level today subtherapeutic despite increasing dosage. Added vimpat 100 mg PO BID as per neuro. -Head CT shows no acute findings -Seizure precautions -Ativan 2mg Q6 IV PRN for seizure -Neuro consult requested, help appreciated -PT evaluation: [facility] Cholecystitis s/p cholecystostomy -Abdominal/Pelvis CT: s/p cholecystostomy, no adverse findings, gallbladder is decompressed, no significant interval changes -No leukocytosis; no abdominal tenderness -Continue antibiotics; switched carbpenenem to Zosyn to avoid possible interaction with depakote. Possibly discharge with PO keflex and flagyl x 7 days -ID on consult, help appreciated -ER requested general surgery consult; appreciate recs -No surgical intervention at this time Hx of CHF with preserved ejection fraction; diastolic dysfunction -CXR showing no active disease -EKG showing LVH, LAD, sinus tach -Echocardiogram done 11/06 significant for grade III reversible restrictive diastolic dysfunction of the LV -Lasix 40mg PO daily held due to low BP -I and O, daily weight Hypotension -Will hold lasix 40mg PO daily -Continue to monitor BPs -If no improvement, will start gentle hydration Hx of COPD -Unknown PFT value -NC 2L SaO2 goal >92% -Albuterol prn shortness of breath -Continue pulmicort Hx of HLD -Continue home Lipitor 10mg Hx of Dementia, Depression, and Schizophrenia -Continue home medications DVT/GI ppx -Lovenox 40mg Daily -Protonix 40mg Daily DISPO: Patient will follow up with Dr Sammy Ramsey her PMD upon discharge. When medically cleared, will discharge back to [facility]. Case discussed with Dr Colón. Sue Ivan, PGY1 <Nicky Colón - Last Filed: 11/14/17 18:42> Objective - Vital Signs/Intake and Output Vital Signs (last 24 hours): Temp Pulse Resp BP Pulse Ox 98.1 F 76 19 94/52 L 99 11/14/17 17:53 11/14/17 17:53 11/14/17 17:53 11/14/17 17:53 11/14/17 17:53 Intake and Output: 11/14/17 11/14/17 06:59 18:59 Intake Total 360 540 Output Total 150 Balance 210 540 - Medications Medications: Current Medications Acetaminophen (Tylenol 325mg Tab) 650 mg PO Q6H PRN PRN Reason: Temperature >100.4 Last Admin: 11/14/17 09:51 Dose: 650 mg Albuterol Sulfate (Albuterol 0.083% Inhal Kisha (2.5 Mg/3 Ml) Ud) 2.5 mg IH [id number] PRN PRN Reason: Shortness of Breath Aripiprazole (Abilify) 5 mg PO HS ANGIE Last Admin: 11/13/17 21:56 Dose: 5 mg Budesonide (Pulmicort Respules) 0.25 mg IH [id number] ANGIE Last Admin: 11/14/17 07:24 Dose: 0.25 mg Clonazepam (Klonopin) 0.5 mg PO HS ANGIE PRN Reason: Protocol Last Admin: 11/13/17 21:56 Dose: 0.5 mg Divalproex Sodium (Depakote Dr (*Bid*)) 500 mg PO Q12 ANGIE PRN Reason: Protocol Home Med (Home Med) 2 unit PO BID ANGIE Piperacillin Sod/Tazobactam Sod (Zosyn 3.375 In Ns 100ml) 100 mls @ 200 mls/hr IVPB Q6 ANGIE PRN Reason: Protocol Last Admin: 11/14/17 05:27 Dose: 200 mls/hr Lorazepam (Ativan) 2 mg IVP Q6H PRN; Protocol PRN Reason: Seizure activity Mirtazapine (Remeron) 15 mg PO HS ANGIE Last Admin: 11/13/17 21:56 Dose: 15 mg Pantoprazole Sodium (Protonix Ec Tab) 40 mg PO DAILY ANGIE Last Admin: 11/14/17 09:51 Dose: 40 mg - Labs Labs: 11/14/17 06:00 11/14/17 06:00 PT 11.5 SECONDS (9.4-12.5) 11/12/17 14:35 INR 1.01 (0.93-1.08) 06/26/18 14:35 APTT 30.7 Seconds (25.1-36.5) 11/12/17 14:35 Attending/Attestation - Attestation I have personally seen and examined this patient.: Yes I have fully participated in the care of the patient.: Yes I have reviewed all pertinent clinical information, including history, physical exam and plan: Yes Notes (Text): 11/14/17 18:39 Attending note; Patient seen and examined with resident. Patient is afebrile and nontoxic. Tolerating diet. Seizure free since admission. Depakote level is still low. Case discussed with neurology in detail. Started on Vimpat 100 mg by mouth twice a day by neurology. Monitor for rash/allergic reaction. Nursing staff informed. History of cholecystitis; status post cholecystostomy tube. Monitor drainage output .CT is negative. Surgery evaluation appreciated. Case discussed with Dr. Luis Jimenez in detail. flush Cholecystostomy tube daily. Needs to be reevaluated by Dr. Luis Jimenez for cholangiogram in 6 weeks for the possible removal of the tube. Imipenem stopped. Started on IV Zosyn. ID evaluation appreciated. Case discussed with patient's grand daughter in detail by the bedside. Possible transfer to rehabilitation tomorrow if stable. Patient is DNI DNR. Upon discharge the patient will follow-up with PMD Dr. Ramsey.
--- NOTE | 2017-11-14 15:51 | CP.PCM.DIS ---
<Sue Ivan - Last Filed: 11/14/17 15:50> Provider - Provider Date of Admission: 11/12/17 17:02 Attending physician: Nicky Colón MD Primary care physician: Tracy Ramsey MD Consults: Neuro [facility] Time Spent in preparation of Discharge (in minutes): 60 Diagnosis - Discharge Diagnosis (1) Intractable abdominal pain Status: Acute Priority: High (2) Recurrent seizures Status: Acute Hospital Course - Lab Results Lab Results: Most Recent Lab Values WBC 7.3 10^3/ul (4.5-11.0) 11/14/17 06:00 RBC 3.69 10^6/uL (3.5-6.1) 11/14/17 06:00 Hgb 10.8 g/dL (12.0-16.0) L 11/14/17 06:00 Hct 34.4 % (36.0-48.0) L 11/14/17 06:00 MCV 93.2 fl (80.0-105.0) 11/14/17 06:00 MCH 29.3 pg (25.0-35.0) 11/14/17 06:00 MCHC 31.4 g/dl (31.0-37.0) 11/14/17 06:00 RDW 14.2 % (11.5-14.5) 11/14/17 06:00 Plt Count 322 10^3/uL (120.0-450.0) 11/14/17 06:00 MPV 9.4 fl (7.0-11.0) 11/14/17 06:00 Gran % 78.6 % (50.0-68.0) H 11/14/17 06:00 Lymph % (Auto) 19.8 % (22.0-35.0) L 11/14/17 06:00 Alexander % (Auto) 1.5 % (1.0-6.0) 11/14/17 06:00 Eos % (Auto) 0.0 % (1.5-5.0) L 11/14/17 06:00 Baso % (Auto) 0.1 % (0.0-3.0) 11/14/17 06:00 Gran # 5.73 (1.4-6.5) 11/14/17 06:00 Lymph # (Auto) 1.4 (1.2-3.4) 11/14/17 06:00 Alexander # (Auto) 0.1 (0.1-0.6) 11/14/17 06:00 Eos # (Auto) 0.0 (0.0-0.7) 11/14/17 06:00 Baso # (Auto) 0.01 K/mm3 (0.0-2.0) 11/14/17 06:00 Retic Count 1.24 % (0.5-1.5) 11/13/17 09:30 PT 11.5 SECONDS (9.4-12.5) 11/12/17 14:35 INR 1.01 (0.93-1.08) 11/12/17 14:35 APTT 30.7 Seconds (25.1-36.5) 11/12/17 14:35 pO2 39 mm/Hg (30-55) 11/13/17 11:20 VBG pH 7.37 (7.32-7.43) 11/13/17 11:20 VBG pCO2 64.0 (40-60) H 11/13/17 11:20 VBG HCO3 37.0 mmol/l (21-28) H 11/13/17 11:20 VBG Total CO2 39.0 mmol.L (22-28) H 11/13/17 11:20 VBG O2 Sat (Calc) 79.7 % (40-65) H 11/13/17 11:20 VBG Base Excess 9.2 mmol/L (0.0-2.0) H 11/13/17 11:20 VBG Potassium 4.5 mmol/L (3.6-5.2) 11/13/17 11:20 Sodium 143.0 mmol/L (132-148) 11/13/17 11:20 Chloride 108.0 mmol/L (98-107) H 11/13/17 11:20 Glucose 123 mg/dl (65-105) H 11/13/17 11:20 Lactate 1.1 mmol/L (0.7-2.1) 11/13/17 11:20 FiO2 21.0 % 11/13/17 11:20 Sodium 144 mmol/L (132-148) 11/14/17 06:00 Potassium 5.0 mmol/L (3.6-5.0) 11/14/17 06:00 Chloride 102 mmol/L (98-107) 11/14/17 06:00 Carbon Dioxide 36 mmol/L (21-33) H 11/14/17 06:00 Anion Gap 11 (10-20) 11/14/17 06:00 BUN 18 mg/dL (7-21) 11/14/17 06:00 Creatinine 0.5 mg/dl (0.7-1.2) L 11/14/17 06:00 Est GFR ( Amer) > 60 11/14/17 06:00 Est GFR (Non-Af Amer) > 60 11/14/17 06:00 POC Glucose (mg/dL) 132 mg/dL (65-110) H 11/12/17 14:52 Random Glucose 131 mg/dL (70-110) H 11/14/17 06:00 Lactic Acid 1.1 mmol/L (0.7-2.1) 11/13/17 11:20 Calcium 8.7 mg/dL (8.4-10.5) 11/14/17 06:00 Phosphorus 4.0 mg/dL (2.5-4.5) 11/13/17 06:20 Magnesium 2.2 mg/dL (1.7-2.2) 11/13/17 06:20 Iron 60 ug/dL (45-180) 11/13/17 09:30 TIBC 219 ug/dL (265-497) L 11/13/17 09:30 % Saturation 28 % (20-55) 11/13/17 09:30 Transferrin 162.86 mg/dL (206-381) L 11/13/17 09:30 Ferritin 80.3 ng/mL 11/13/17 09:30 Total Bilirubin 0.3 mg/dL (0.2-1.3) 11/14/17 06:00 AST 59 U/L (14-36) H D 11/14/17 06:00 ALT 36 U/L (7-56) 11/14/17 06:00 Alkaline Phosphatase 65 U/L (38-126) 11/14/17 06:00 Troponin I < 0.01 ng/mL 11/12/17 14:35 NT-Pro-B Natriuret Pep 237 pg/mL (0-450) 11/12/17 14:35 Total Protein 6.4 g/dL (5.8-8.3) 11/14/17 06:00 Albumin 3.1 g/dL (3.0-4.8) 11/14/17 06:00 Globulin 3.3 gm/dL 11/14/17 06:00 Albumin/Globulin Ratio 0.9 (1.1-1.8) L 11/14/17 06:00 Lipase 88 U/L (23-300) 11/12/17 14:35 Vitamin B12 325 pg/mL (239-931) 11/13/17 09:30 Folate 10.5 ng/mL 11/13/17 09:30 Venous Blood Potassium 4.5 mmol/L (3.6-5.2) 11/13/17 11:20 Valproic Acid < 10 ug/mL (50.0-100.0) L 11/14/17 06:00 Blood Type O POSITIVE 11/12/17 16:45 Blood Type Confirm O POSITIVE 11/12/17 22:00 Antibody Screen Negative 11/12/17 16:45 BBK History Checked No verified bt 11/12/17 16:45 - Hospital Course Hospital Course: 87 year old female with past medical history significant for cholelithiasis and recent episode of cholecystitis s/p gallbladder drain placement, CHF unknown EF , COPD/asthma, recurrent UTIs, emphysema, depression, HLD, dementia, seizure disorder, and hypothyroidism who presents to [facility] by ambulance from rehab facility after two witnessed seizures. Patient was recently in the hospital for cholecystitis and had a drain placed. She is on depakote for her epilepsy, and her dose was recently decreased to 250mg PO BID. Yesterday, she was with her daughter who witnessed her start having a convulsive episode, and urinated on herself, but did not bite her tongue, and did not fall or hit her head/body; convulsions lasted about 1 minute and stopped spontaneously. Of note, patient was started on Merrem, which may have interfered with her seizure medication. At [facility], patient afebrile, hemodynamically stable. Depakote level subtherapeutic. Patient given loading dose of depakote, then started on 750 mg BID, depakote level still low. As per Neurology, started on Vimpat 100 mg PO BID along with Depakote 500 mg PO BID. Surgery consulted for cholecystostomy tube, started on Zosyn, discharged home with PO keflex and flagyl for 7 days. Patient to be discharged back to [facility], follow up with PMD and Dr Reese. Patient and family agrees. Case seen and discussed with Dr Colón. Sueyunior Mckeonani, PGY1 Discharge Exam - Additional Findings Additional findings: - Constitutional Appears: Non-toxic, No Acute Distress - Head Exam Head Exam: ATRAUMATIC, NORMOCEPHALIC - Eye Exam Eye Exam: EOMI, Normal appearance - ENT Exam ENT Exam: Mucous Membranes Moist - Respiratory Exam Respiratory Exam: NORMAL BREATHING PATTERN - Cardiovascular Exam Cardiovascular Exam: REGULAR RHYTHM, +S1, +S2 - GI/Abdominal Exam GI & Abdominal Exam: Soft. +cholecystostomy tube, non-tender to palpation absent: Distended, Firm, Guarding, Rebound, Rigid, Tenderness - Extremities Exam Extremities exam: Negative for: calf tenderness, pedal edema - Neurological Exam Neurological exam: Alert, CN II-XII Intact, Oriented x3 Additional comments: 5/5 strength in all four extremities - Psychiatric Exam Psychiatric exam: Normal Affect, Normal Mood - Skin Skin Exam: Dry, Intact, Normal Color Discharge Plan - Discharge Medications Prescriptions: Cephalexin [Keflex] 500 mg PO BID #14 capsule Lacosamide [Vimpat] 100 mg PO BID 1 Days #60 tab Metronidazole [Flagyl] 500 mg PO TID #21 tablet - Follow Up Plan Condition: STABLE Disposition: REHAB FACILITY/REHAB UNIT Instructions: Seizures, Adult (DC) Additional Instructions: - Start Vimpat 100 mg PO BID, take depakote 500 mg PO BID. - Take PO flagyl and keflex for 7 days. - Please repeat cholangiogram with Dr Jimenez in 6 weeks to possibly remove tube. Flush tube every day. - Take other meds as reconciled. - Follow up with PMD in 1 week - Dr Ramsey - Follow up with Dr Reese in 1 week. - Return to ER for any concerns. Referrals: Tracy Ramsey MD [Primary Care Provider] - <Nicky Colón - Last Filed: 11/14/17 18:44> Provider - Provider Date of Admission: 11/12/17 17:02 Attending physician: Nicky Colón MD Primary care physician: Tracy Ramsey MD Hospital Course - Lab Results Lab Results: Most Recent Lab Values WBC 7.3 10^3/ul (4.5-11.0) 11/14/17 06:00 RBC 3.69 10^6/uL (3.5-6.1) 11/14/17 06:00 Hgb 10.8 g/dL (12.0-16.0) L 11/14/17 06:00 Hct 34.4 % (36.0-48.0) L 11/14/17 06:00 MCV 93.2 fl (80.0-105.0) 11/14/17 06:00 MCH 29.3 pg (25.0-35.0) 11/14/17 06:00 MCHC 31.4 g/dl (31.0-37.0) 11/14/17 06:00 RDW 14.2 % (11.5-14.5) 11/14/17 06:00 Plt Count 322 10^3/uL (120.0-450.0) 11/14/17 06:00 MPV 9.4 fl (7.0-11.0) 11/14/17 06:00 Gran % 78.6 % (50.0-68.0) H 11/14/17 06:00 Lymph % (Auto) 19.8 % (22.0-35.0) L 11/14/17 06:00 Alexander % (Auto) 1.5 % (1.0-6.0) 11/14/17 06:00 Eos % (Auto) 0.0 % (1.5-5.0) L 11/14/17 06:00 Baso % (Auto) 0.1 % (0.0-3.0) 11/14/17 06:00 Gran # 5.73 (1.4-6.5) 11/14/17 06:00 Lymph # (Auto) 1.4 (1.2-3.4) 11/14/17 06:00 Alexander # (Auto) 0.1 (0.1-0.6) 11/14/17 06:00 Eos # (Auto) 0.0 (0.0-0.7) 11/14/17 06:00 Baso # (Auto) 0.01 K/mm3 (0.0-2.0) 11/14/17 06:00 Retic Count 1.24 % (0.5-1.5) 11/13/17 09:30 PT 11.5 SECONDS (9.4-12.5) 11/12/17 14:35 INR 1.01 (0.93-1.08) 11/12/17 14:35 APTT 30.7 Seconds (25.1-36.5) 11/12/17 14:35 pO2 39 mm/Hg (30-55) 11/13/17 11:20 VBG pH 7.37 (7.32-7.43) 11/13/17 11:20 VBG pCO2 64.0 (40-60) H 11/13/17 11:20 VBG HCO3 37.0 mmol/l (21-28) H 11/13/17 11:20 VBG Total CO2 39.0 mmol.L (22-28) H 11/13/17 11:20 VBG O2 Sat (Calc) 79.7 % (40-65) H 11/13/17 11:20 VBG Base Excess 9.2 mmol/L (0.0-2.0) H 11/13/17 11:20 VBG Potassium 4.5 mmol/L (3.6-5.2) 11/13/17 11:20 Sodium 143.0 mmol/L (132-148) 11/13/17 11:20 Chloride 108.0 mmol/L (98-107) H 11/13/17 11:20 Glucose 123 mg/dl (65-105) H 11/13/17 11:20 Lactate 1.1 mmol/L (0.7-2.1) 11/13/17 11:20 FiO2 21.0 % 11/13/17 11:20 Sodium 144 mmol/L (132-148) 11/14/17 06:00 Potassium 5.0 mmol/L (3.6-5.0) 11/14/17 06:00 Chloride 102 mmol/L (98-107) 11/14/17 06:00 Carbon Dioxide 36 mmol/L (21-33) H 11/14/17 06:00 Anion Gap 11 (10-20) 11/14/17 06:00 BUN 18 mg/dL (7-21) 11/14/17 06:00 Creatinine 0.5 mg/dl (0.7-1.2) L 11/14/17 06:00 Est GFR ( Amer) > 60 11/14/17 06:00 Est GFR (Non-Af Amer) > 60 11/14/17 06:00 POC Glucose (mg/dL) 132 mg/dL (65-110) H 11/12/17 14:52 Random Glucose 131 mg/dL (70-110) H 11/14/17 06:00 Lactic Acid 1.1 mmol/L (0.7-2.1) 11/13/17 11:20 Calcium 8.7 mg/dL (8.4-10.5) 11/14/17 06:00 Phosphorus 4.0 mg/dL (2.5-4.5) 11/13/17 06:20 Magnesium 2.2 mg/dL (1.7-2.2) 11/13/17 06:20 Iron 60 ug/dL (45-180) 11/13/17 09:30 TIBC 219 ug/dL (265-497) L 11/13/17 09:30 % Saturation 28 % (20-55) 11/13/17 09:30 Transferrin 162.86 mg/dL (206-381) L 11/13/17 09:30 Ferritin 80.3 ng/mL 11/13/17 09:30 Total Bilirubin 0.3 mg/dL (0.2-1.3) 11/14/17 06:00 AST 59 U/L (14-36) H D 11/14/17 06:00 ALT 36 U/L (7-56) 11/14/17 06:00 Alkaline Phosphatase 65 U/L (38-126) 11/14/17 06:00 Troponin I < 0.01 ng/mL 11/12/17 14:35 NT-Pro-B Natriuret Pep 237 pg/mL (0-450) 11/12/17 14:35 Total Protein 6.4 g/dL (5.8-8.3) 11/14/17 06:00 Albumin 3.1 g/dL (3.0-4.8) 11/14/17 06:00 Globulin 3.3 gm/dL 11/14/17 06:00 Albumin/Globulin Ratio 0.9 (1.1-1.8) L 11/14/17 06:00 Lipase 88 U/L (23-300) 11/12/17 14:35 Vitamin B12 325 pg/mL (239-931) 11/13/17 09:30 Folate 10.5 ng/mL 11/13/17 09:30 Venous Blood Potassium 4.5 mmol/L (3.6-5.2) 11/13/17 11:20 Valproic Acid < 10 ug/mL (50.0-100.0) L 11/14/17 06:00 Blood Type O POSITIVE 11/12/17 16:45 Blood Type Confirm O POSITIVE 11/12/17 22:00 Antibody Screen Negative 11/12/17 16:45 BBK History Checked No verified bt 11/12/17 16:45 Attending/Attestation - Attestation I have personally seen and examined this patient.: Yes I have fully participated in the care of the patient.: Yes I have reviewed all pertinent clinical information, including history, physical exam and plan: Yes Notes (Text): 11/14/17 18:43 Attending note; Patient seen and examined with resident. Patient is afebrile and nontoxic. Tolerating diet. Seizure free since admission. Depakote level is still low. Case discussed with neurology in detail. Started on Vimpat 100 mg by mouth twice a day by neurology. Monitor for rash/allergic reaction. Nursing staff informed. History of cholecystitis; status post cholecystostomy tube. Monitor drainage output .CT is negative. Surgery evaluation appreciated. Case discussed with Dr. Luis Jimenez in detail. flush Cholecystostomy tube daily. Needs to be reevaluated by Dr. Luis Jimenez for cholangiogram in 6 weeks for the possible removal of the tube. Imipenem stopped. Started on IV Zosyn. ID evaluation appreciated. Case discussed with patient's grand daughter in detail by the bedside. Possible transfer to rehabilitation tomorrow if stable. Case discussed with lead case manager/social worker aide in detail. Patient is DNI DNR. Upon discharge the patient will follow-up with PMD Dr. Ramsey.
--- NOTE | 2017-11-14 16:55 | CP.PCM.PN ---
Subjective - Date & Time of Evaluation Date of Evaluation: 11/14/17 Time of Evaluation: 16:00 - Subjective Subjective: Infectious Disease Follow Up: November 14, 2017 87 yo female with past medical history that includes cholelithiasis, recent episode of cholecystitis s/p cholecystotomy tube, CHF, COPD, depression, dementia, seizure disorder who was brought in by EMS to [facility] from rehab facility after two witnessed seizures. Patient was recently in the hospital for cholecystitis when she had cholecystotomy tube placed. Patient was with daughter who witnessed the seizures. She is currently awake and alert but slightly confused. History was supplemented by her daughter. Patient states she has abdominal pain at drain site. She rates pain as mild. She describes it as constant cramping. Her daughter also reports dysuria and melanotic bowel movement with prior constipation. She denies any aggravating or alleviating factors. Patient is tolerating oral intake of liquids and solid foods within nausea/vomiting or exacerbation of pain. Infectious Disease called for antibiotic management. Stable so far. Objective - Vital Signs/Intake and Output Vital Signs (last 24 hours): Temp Pulse Resp BP Pulse Ox 97 F L 75 22 133/77 99 11/14/17 09:13 11/14/17 09:13 11/14/17 09:13 11/14/17 09:13 11/14/17 09:13 Intake and Output: 11/14/17 11/14/17 06:59 18:59 Intake Total 360 540 Output Total 150 Balance 210 540 - Medications Medications: Current Medications Acetaminophen (Tylenol 325mg Tab) 650 mg PO Q6H PRN PRN Reason: Temperature >100.4 Last Admin: 11/14/17 09:51 Dose: 650 mg Albuterol Sulfate (Albuterol 0.083% Inhal Kisha (2.5 Mg/3 Ml) Ud) 2.5 mg IH [id number] PRN PRN Reason: Shortness of Breath Aripiprazole (Abilify) 5 mg PO HS ANGIE Last Admin: 11/13/17 21:56 Dose: 5 mg Budesonide (Pulmicort Respules) 0.25 mg IH [id number] ANGIE Last Admin: 11/14/17 07:24 Dose: 0.25 mg Clonazepam (Klonopin) 0.5 mg PO HS ANGIE PRN Reason: Protocol Last Admin: 06/27/18 21:56 Dose: 0.5 mg Divalproex Sodium (Depakote Dr (*Bid*)) 500 mg PO Q12 ANGIE PRN Reason: Protocol Home Med (Home Med) 1 unit PO BID ANGIE Piperacillin Sod/Tazobactam Sod (Zosyn 3.375 In Ns 100ml) 100 mls @ 200 mls/hr IVPB Q6 ANGIE PRN Reason: Protocol Last Admin: 11/14/17 05:27 Dose: 200 mls/hr Lorazepam (Ativan) 2 mg IVP Q6H PRN; Protocol PRN Reason: Seizure activity Mirtazapine (Remeron) 15 mg PO HS [facility] Last Admin: 11/13/17 21:56 Dose: 15 mg Pantoprazole Sodium (Protonix Ec Tab) 40 mg PO DAILY [facility] Last Admin: 11/14/17 09:51 Dose: 40 mg - Labs Labs: 11/14/17 06:00 11/14/17 06:00 PT 11.5 SECONDS (9.4-12.5) 11/12/17 14:35 INR 1.01 (0.93-1.08) 11/12/17 14:35 APTT 30.7 Seconds (25.1-36.5) 11/12/17 14:35 - Constitutional Appears: No Acute Distress, Chronically Ill - Head Exam Head Exam: ATRAUMATIC, NORMOCEPHALIC - Eye Exam Eye Exam: EOMI, PERRL Pupil Exam: NORMAL ACCOMODATION, PERRL - ENT Exam ENT Exam: Mucous Membranes Moist, Normal External Ear Exam, TM's Normal Bilaterally - Neck Exam Neck Exam: Full ROM, Normal Inspection - Respiratory Exam Respiratory Exam: Clear to Ausculation Bilateral, NORMAL BREATHING PATTERN. absent: Rales, Rhonchi, Wheezes - Cardiovascular Exam Cardiovascular Exam: REGULAR RHYTHM, RRR, +S1, +S2 - GI/Abdominal Exam GI & Abdominal Exam: Soft, Tenderness (at drain tube site.), Normal Bowel Sounds Additional comments: s/p cholecystotomy tube - Extremities Exam Extremities Exam: Normal Capillary Refill, Normal Inspection - Neurological Exam Neurological Exam: Awake, CN II-XII Intact, Oriented x3 - Psychiatric Exam Psychiatric exam: Normal Affect, Normal Mood - Skin Skin Exam: Dry, Intact Assessment and Plan - Assessment and Plan (Free Text) Assessment: 87 yo female admitted for seizures given recent cholecystectomy. Patient with drain still in place with mild tenderness. Was on Meropenem but this is contraindicated in patient's with seizures. Switched to Zosyn for antibiotic coverage for now. Awaiting cultures. As of now, cultures have been negative. No positive cultures from prior hospitalization. Can consider use of Keflex and Flagyl TID PO for 10 days more on discharge. Supportive care. Thank you for allowing me to participate in the care of the patient, we will follow with you.
[2017-11-14] MEDS ORDERED: VIMPAT PO SCH (18:00)
[2017-11-14] MEDS ORDERED: VIMPAT 100 MG PO SCH (18:00)
[2017-11-14] MEDS ORDERED: VIMPAT 50 MG PO SCH (18:34)
--- NOTE | 2017-11-14 20:13 | CON ---
STORY OF PRESENT ILLNESS: Holly Jones was seen with her daughter and granddaughter. The tube seems to be draining very nicely. The family is pretty adamant that no further surgery is indicated and because of her age of 87 and general condition, I am not fighting. Was evaluated her at the 6 week génesis about whether to take the tube or leave it in place. It is presently draining thin bile material. Brennon Soriano MD
[2017-11-15] MEDS: Piperacillin/Tazobact 3.375 gm 100 ML IVPB SCH ×2 (00:16→05:18)
[2017-11-15 06:57] LABS: BASO # 0.01 K/mm3 (0.0-2.0); BASO % 0.1 % (0.0-3.0); EOS # 0.2 (0.0-0.7); EOS % 1.2 % (1.5-5.0); GRAN # 9.18 (1.4-6.5); GRAN % 66.1 % (50.0-68.0); HEMOGLOBIN 11.9 g/dL (12.0-16.0); LYMPH # 3.6 (1.2-3.4); LYMPH % 26.1 % (22.0-35.0); MEAN CELL VOLUME 94.1 fl (80.0-105.0); MEAN CORPUSCULAR HEMOGLOBIN 29.2 pg (25.0-35.0); MEAN CORPUSCULAR HGB CONC 31.1 g/dl (31.0-37.0); MEAN PLATELET VOLUME 9.7 fl (7.0-11.0); MONO # 0.9 (0.1-0.6); MONO % 6.5 % (1.0-6.0); RBC 4.07 10^6/uL (3.5-6.1); RED CELL DISTRIBUTION WIDTH 14.3 % (11.5-14.5); WHITE BLOOD COUNT 13.9 10^3/ul (4.5-11.0)
[2017-11-15 07:13] LABS: ALBUMIN 3.4 g/dL (3.0-4.8); ALT/SGPT 40 U/L (7-56); AST/SGOT 61 U/L (14-36); BLOOD UREA NITROGEN 21 mg/dL (7-21); CALCIUM 8.9 mg/dL (8.4-10.5); GFR AFRICAN-AMERICAN > 60; GFR NON-AFRICAN AMERICAN > 60
[2017-11-15] MEDS: Budesonide 0.25 mg/2 ml Inhal Susp UD IH SCH (07:23)
[2017-11-15] MEDS ORDERED: Morphine 2 mg/ml ISec IVP ONE (10:05)
[2017-11-15] MEDS ORDERED: Naproxen 550 mg Tab PO PRN (10:05)
[2017-11-15] MEDS ORDERED: Morphine 2 mg/ml ISec IVP STA (10:07)
[2017-11-15] MEDS: Divalproex 250 mg DR (BID formulation) PO SCH (10:12)
[2017-11-15] MEDS: Pantoprazole 40 mg EC Tab PO SCH (10:12)
--- NOTE | 2017-11-15 12:36 | CP.PCM.PN ---
Subjective - Date & Time of Evaluation Date of Evaluation: 11/15/17 Time of Evaluation: 12:36 - Subjective Subjective: Ms. Jones was seen and examined at the bedside. She is alert, able to participate in a pleasant conversation. She denies any lightheadedness, weakness , claims of experiencing abdominal pain and was given Morphine. She follows commands. Spoke with the patient's daughter regarding seizure and its treatments , verbalizes understanding. There was no untoward events overnight. Objective - Vital Signs/Intake and Output Vital Signs (last 24 hours): Temp Pulse Resp BP Pulse Ox 98.7 F 93 H 21 146/83 94 L 11/15/17 07:53 11/15/17 10:00 11/15/17 07:53 11/15/17 07:53 11/15/17 07:53 Intake and Output: 11/15/17 11/15/17 06:59 18:59 Output Total 360 100 Balance -360 -100 - Medications Medications: Current Medications Acetaminophen (Tylenol 325mg Tab) 650 mg PO Q6H PRN PRN Reason: Temperature >100.4 Last Admin: 11/15/17 04:01 Dose: 650 mg Albuterol Sulfate (Albuterol 0.083% Inhal Kisha (2.5 Mg/3 Ml) Ud) 2.5 mg IH [id number] PRN PRN Reason: Shortness of Breath Aripiprazole (Abilify) 5 mg PO [facility] Last Admin: 11/14/17 22:06 Dose: 5 mg Budesonide (Pulmicort Respules) 0.25 mg IH [id number] [facility] Last Admin: 11/15/17 07:23 Dose: 0.25 mg Clonazepam (Klonopin) 0.5 mg PO [facility] PRN Reason: Protocol Last Admin: 11/14/17 22:09 Dose: 0.5 mg Divalproex Sodium (Depakote Dr (*Bid*)) 500 mg PO Q12 ANGIE PRN Reason: Protocol Last Admin: 11/15/17 10:12 Dose: 500 mg Home Med (Home Med) 2 unit PO BID [facility] Last Admin: 11/15/17 10:13 Dose: 2 unit Piperacillin Sod/Tazobactam Sod (Zosyn 3.375 In Ns 100ml) 100 mls @ 200 mls/hr IVPB Q6 ANGIE PRN Reason: Protocol Last Admin: 11/15/17 05:18 Dose: 200 mls/hr Lorazepam (Ativan) 2 mg IVP Q6H PRN; Protocol PRN Reason: Seizure activity Mirtazapine (Remeron) 15 mg PO HS [facility] Last Admin: 11/14/17 22:10 Dose: 15 mg Naproxen (Anaprox Ds) 550 mg PO BID PRN PRN Reason: Pain, moderate (4-7) Pantoprazole Sodium (Protonix Ec Tab) 40 mg PO DAILY [facility] Last Admin: 11/15/17 10:12 Dose: 40 mg - Labs Labs: 11/15/17 06:00 11/15/17 06:00 PT 11.5 SECONDS (9.4-12.5) 11/12/17 14:35 INR 1.01 (0.93-1.08) 11/12/17 14:35 APTT 30.7 Seconds (25.1-36.5) 11/12/17 14:35 - Constitutional Appears: No Acute Distress - Head Exam Head Exam: NORMAL INSPECTION - Neurological Exam Neurological Exam: Awake Neuro motor strength exam: Left Upper Extremity: 4, Right Upper Extremity: 4, Left Lower Extremity: 3, Right Lower Extremity: 3 Additional comments: neurological unchanged from previous examination. Assessment and Plan (1) Seizures Assessment & Plan: Case discussed with Dr. Reese, continue all current medical regimen. There was no untoward reaction from vimpat, recommend to continue same AED medication and dose upon discharge and follow up with Dr. Reese after patient is discharge from a rehab facility, patient's daughter verbalize understanding about treatment plan for seizure, hydration. May discharge to rehab facility upon clearance by primary team. Status: Chronic
--- NOTE | 2017-11-15 15:55 | CP.PCM.PN ---
Subjective - Date & Time of Evaluation Date of Evaluation: 11/15/17 Time of Evaluation: 14:00 - Subjective Subjective: Infectious Disease Follow Up: November 15, 2017 87 yo female with past medical history that includes cholelithiasis, recent episode of cholecystitis s/p cholecystotomy tube, CHF, COPD, depression, dementia, seizure disorder who was [place] by [place] [facility] [place] after two witnessed seizures. Patient was recently in the hospital for cholecystitis when she had cholecystotomy tube placed. Patient was with daughter who witnessed the seizures. She is currently awake and alert but slightly confused. History was supplemented by her daughter. Patient states she has abdominal pain at drain site. She rates pain as mild. She describes it as constant cramping. Her daughter also reports dysuria and melanotic bowel movement with prior constipation. She denies any aggravating or alleviating factors. Patient is tolerating oral intake of liquids and solid foods within nausea/vomiting or exacerbation of pain. Infectious Disease called for antibiotic management. Stable so far. Objective - Vital Signs/Intake and Output Vital Signs (last 24 hours): Temp Pulse Resp BP Pulse Ox 98.7 F 93 H 21 146/83 94 L 11/15/17 07:53 11/15/17 10:00 11/15/17 07:53 11/15/17 07:53 11/15/17 07:53 Intake and Output: 11/15/17 11/15/17 06:59 18:59 Output Total 360 100 Balance -360 -100 - Medications Medications: Current Medications Acetaminophen (Tylenol 325mg Tab) 650 mg PO Q6H PRN PRN Reason: Temperature >100.4 Last Admin: 11/15/17 04:01 Dose: 650 mg Albuterol Sulfate (Albuterol 0.083% Inhal Kisha (2.5 Mg/3 Ml) Ud) 2.5 mg IH [id number] PRN PRN Reason: Shortness of Breath Aripiprazole (Abilify) 5 mg PO HS ANGIE Last Admin: 11/14/17 22:06 Dose: 5 mg Budesonide (Pulmicort Respules) 0.25 mg IH [id number] ANGIE Last Admin: 11/15/17 07:23 Dose: 0.25 mg Clonazepam (Klonopin) 0.5 mg PO HS ANGIE PRN Reason: Protocol Last Admin: 11/14/17 22:09 Dose: 0.5 mg Divalproex Sodium (Depakote Dr (*Bid*)) 500 mg PO Q12 ANGIE PRN Reason: Protocol Last Admin: 11/15/17 10:12 Dose: 500 mg Home Med (Home Med) 2 unit PO BID [facility] Last Admin: 11/15/17 10:13 Dose: 2 unit Piperacillin Sod/Tazobactam Sod (Zosyn 3.375 In Ns 100ml) 100 mls @ 200 mls/hr IVPB Q6 ANGIE PRN Reason: Protocol Last Admin: 11/15/17 05:18 Dose: 200 mls/hr Lorazepam (Ativan) 2 mg IVP Q6H PRN; Protocol PRN Reason: Seizure activity Mirtazapine (Remeron) 15 mg PO HS [facility] Last Admin: 11/14/17 22:10 Dose: 15 mg Naproxen (Anaprox Ds) 550 mg PO BID PRN PRN Reason: Pain, moderate (4-7) Pantoprazole Sodium (Protonix Ec Tab) 40 mg PO DAILY [facility] Last Admin: 11/15/17 10:12 Dose: 40 mg - Labs Labs: 11/15/17 06:00 11/15/17 06:00 PT 11.5 SECONDS (9.4-12.5) 11/12/17 14:35 INR 1.01 (0.93-1.08) 11/12/17 14:35 APTT 30.7 Seconds (25.1-36.5) 11/12/17 14:35 - Constitutional Appears: No Acute Distress, Chronically Ill - Head Exam Head Exam: ATRAUMATIC, NORMOCEPHALIC - Eye Exam Eye Exam: EOMI, PERRL Pupil Exam: NORMAL ACCOMODATION, PERRL - ENT Exam ENT Exam: Mucous Membranes Moist, Normal External Ear Exam, TM's Normal Bilaterally - Neck Exam Neck Exam: Full ROM, Normal Inspection - Respiratory Exam Respiratory Exam: Clear to Ausculation Bilateral, NORMAL BREATHING PATTERN. absent: Rales, Rhonchi, Wheezes - Cardiovascular Exam Cardiovascular Exam: REGULAR RHYTHM, RRR, +S1, +S2 - GI/Abdominal Exam GI & Abdominal Exam: Soft, Tenderness (at drain tube site), Normal Bowel Sounds. absent: Distended Additional comments: s/p cholecystotomy tube - Extremities Exam Extremities Exam: Full ROM, Normal Inspection - Neurological Exam Neurological Exam: Alert, Awake, CN II-XII Intact, Oriented x3 - Psychiatric Exam Psychiatric exam: Normal Affect, Normal Mood - Skin Skin Exam: Intact, Normal Color Assessment and Plan - Assessment and Plan (Free Text) Assessment: 87 yo female admitted for seizures given recent cholecystectomy. Patient with drain still in place with mild tenderness. Was on Meropenem but this is contraindicated in patient's with seizures. Switched to Zosyn for antibiotic coverage for now. Awaiting cultures. As of now, cultures have been negative. No positive cultures from prior hospitalization. Can consider use of Keflex and Flagyl TID PO for 10 days more on discharge. Supportive care. No major complaints. Thank you for allowing me to participate in the care of the patient, we will follow with you.
[2017-11-15 16:13] VITALS: BP 100/60; PULSE 97; RESP 18; TEMP 98.4; O2SAT 99
== END 2017-11-15 17:46 | DRG 101 ==
LOC: ED 14:18 → ERH 17:02 → 3RSO 21:03
PROVIDERS: ADMIT Internal Medicine; ATTEND Internal Medicine
DX: G40.909 Epilepsy, unspecified, not intractable, without status epilepticus (principal); K80.10 Calculus of gallbladder with chronic cholecystitis without obstruction; I50.30 Unspecified diastolic (congestive) heart failure; R10.9 Unspecified abdominal pain; E03.9 Hypothyroidism, unspecified; E78.5 Hyperlipidemia, unspecified; F03.90 Unspecified dementia, unspecified severity, without behavioral disturbance, psychotic disturbance, mood disturbance, and anxiety; F32.9 Major depressive disorder, single episode, unspecified; J43.9 Emphysema, unspecified; F20.9 Schizophrenia, unspecified; K59.00 Constipation, unspecified; Z66 Do not resuscitate; Z88.1 Allergy status to other antibiotic agents; Z87.891 Personal history of nicotine dependence; Z87.440 Personal history of urinary (tract) infections

== ENCOUNTER 2017-11-28 10:52 | Inpatient (IN) | payer MEDICARE, MEDICAID ==
[2017-11-28] MEDS ORDERED: Sodium Chloride 0.9% 1,000 ML IV STA (11:52)
--- NOTE | 2017-11-28 11:57 | ED PDOC ---
Arrival/HPI <Brett Melchor - Last Filed: 11/28/17 19:46> <Melinda Molina - Last Filed: 12/01/17 09:16> - General Chief Complaint: Abdominal Pain Time Seen by Provider: 11/28/17 11:45 - History of Present Illness Narrative History of Present Illness (Text): 87 year old Female with PMH of cholecystitis s/p gall bladder tube placement, CHF with unknown EF, hyperlipidemia, epilepsy, COPD/asthma, recurrent UTI, depression, dementia, and hypothyroidism presents with continued right upper quadrant pain and nausea s/p gall bladder tube placement 2 weeks ago. Patient and her daughter both provided history due to patient's history of dementia. Patient reports continued right upper quadrant pain and nausea. She denies jaundice, fever, or vomiting. Her mental status was difficult to assess because of her history of dementia. She reports that her gall bladder tube stopped draining 3 days ago and she called Dr. Soriano who told her to come to the hospital for a study to evaluate the patency of the gall bladder tube. Patient also reports dysuria but no hematuria. 11/28/17 15:18 11/28/17 15:19 (Brett Melchor) Past Medical History - Provider Review Nursing Documentation Reviewed: Yes - Past History Past History: Non-Contributing - Infectious Disease Hx of Infectious Diseases: None - Tetanus Immunization Tetanus Immunization: Unknown - Reproductive Menopause: Yes - Cardiac Hx Congestive Heart Failure: Yes - Pulmonary Hx Asthma: Yes Hx Chronic Obstructive Pulmonary Disease (COPD): Yes Hx Emphysema: Yes - Neurological Hx Dementia: Yes Hx Migraine: Yes Hx Seizures: Yes (on Depakote) - HEENT Hx HEENT Disorder: No - Renal Hx Renal Disorder: No - Endocrine/Metabolic Hx Hypothyroidism: Yes - Hematological/Oncological Hx Blood Disorders: No - Integumentary Hx Dermatological Disorder: No - Musculoskeletal/Rheumatological Hx Unsteady Gait: Yes Other/Comment: Recent falls - Gastrointestinal Hx Gastrointestinal Disorders: No Other/Comment: cholecystitis - Genitourinary/Gynecological Hx Incontinence: Yes - Psychiatric Hx Anxiety: Yes Hx Depression: Yes Hx Schizophrenia: Yes Hx Substance Use: No - Surgical History Hx Eye Surgery: Yes Hx Orthopedic Surgery: Yes (left shldr, left hand) Other/Comment: Hernia repair - Anesthesia Hx Anesthesia Reactions: No Hx Malignant Hyperthermia: No - Suicidal Assessment Feels Threatened In Home Enviroment: No <Brett Melchor - Last Filed: 11/28/17 19:46> Family/Social History - Physician Review Nursing Documentation Reviewed: Yes Family/Social History: Unknown Family HX Smoking Status: Former Smoker Hx Alcohol Use: No Hx Substance Use: No Hx Substance Use Treatment: No <Brett Melchor - Last Filed: 11/28/17 19:46> Allergies/Home Meds <Brett Melchor - Last Filed: 11/28/17 19:46> <Melinda Molina - Last Filed: 12/01/17 09:16> Allergies/Adverse Reactions: Allergies moxifloxacin Allergy (Verified 11/12/17 14:53) ITCHING Home Medications: Home Meds Medication Instructions Recorded Confirmed Ezetimibe [Zetia] 10 mg PO DAILY 01/18/12 11/12/17 Memantine [Namenda] 10 mg PO BID 01/18/12 11/12/17 Ipratropium/Albuterol Sulfate 1 units NEB Q4 PRN 09/11/12 11/12/17 [Duoneb 0.5 mg-3 mg/3 ml Soln] ARIPiprazole [Abilify] 5 mg PO DAILY 08/06/15 11/12/17 Clonazepam [Klonopin] 0.5 mg PO HS 08/06/15 11/12/17 Isosorbide Dinitrate 30 mg PO DAILY 08/06/15 11/12/17 Pantoprazole [Protonix EC Tab] 40 mg PO DAILY 08/06/15 11/12/17 Sertraline HCl [Zoloft] 75 mg PO DAILY 08/06/15 11/12/17 Solifenacin Succinate [Vesicare] 10 mg PO DAILY 08/06/15 11/12/17 Acetaminophen [Pain Reliever] 650 mg PO Q6 PRN 11/12/17 11/12/17 Atorvastatin Calcium 10 mg PO HS 11/12/17 11/12/17 Budesonide [Pulmicort Respules] 1 vial INH Q12 11/12/17 11/12/17 Docusate Sodium [San' 200 mg PO HS 11/12/17 11/12/17 Laxative] Mirtazapine [Remeron] 15 mg PO HS 11/12/17 11/12/17 Sennosides [Senna] 8.6 mg PO HS 11/12/17 11/12/17 Review of Systems - Physician Review All systems were reviewed & negative as marked: Yes - Review of Systems Constitutional: Normal Eyes: Normal ENT: Normal Respiratory: Normal Cardiovascular: Normal Gastrointestinal: Abdominal Pain, Nausea, Vomiting Musculoskeletal: Back Pain Skin: Normal <Brett Melchor - Last Filed: 11/28/17 19:46> Physical Exam Vital Signs Reviewed: Yes Temperature: Afebrile Blood Pressure: Hypotensive Pulse: Regular Respiratory Rate: Normal Appearance: Positive for: Well-Appearing Pain Distress: None Mental Status: Positive for: Alert and Oriented X 3 - Systems Exam Head: Present: Atraumatic, Normocephalic Pupils: Present: PERRL Extroacular Muscles: Present: EOMI Mouth: Present: Dry Nose (External): Present: Atraumatic Respiratory/Chest: Present: Clear to Auscultation Cardiovascular: Present: Regular Rate and Rhythm Abdomen: Present: Tenderness, Distention, Ostomy Tubes. No: Normal Bowel Sounds (fluid wave auscultated) Upper Extremity: Present: Normal Inspection, Normal ROM, NORMAL PULSES Lower Extremity: Present: Normal Inspection, NORMAL PULSES, Normal ROM <Brett Melchor - Last Filed: 11/28/17 19:46> <Melinda Molina - Last Filed: 12/01/17 09:16> Vital Signs Temp Pulse Resp BP Pulse Ox 11/28/17 18:14 98.9 F 89 18 104/67 100 11/28/17 17:23 104/67 11/28/17 11:22 98.0 F 90 20 85/56 L 100 Medical Decision Making <Brett Melchor - Last Filed: 11/28/17 19:46> <Melinda Molina - Last Filed: 12/01/17 09:16> ED Course and Treatment: Impression: 87 year old Female with PMH of cholecystitis s/p gall bladder tube placement, CHF with unknown EF, hyperlipidemia, epilepsy, COPD/asthma, recurrent UTI, depression, dementia, and hypothyroidism presents with continued right upper quadrant pain, nausea, and vomiting s/p gall bladder tube placement 2 weeks ago. Assessment: continued cholecystitis rule out cholangitis, pancreatitis, UTI Plan: IV NS 0.9% 1L CBC CMP PT/INR PTT Lipase UA UC Imaging: EKG: Normal sinus rhythm. CXR: No active pulmonary disease. 11/28/17 15:15 The surgical team performed the tube placement test and patient failed the test. As a result, tube has been dislodged. Family still does not want cholecystectomy. Patient will be admitted to the Med/Surg service to replace the drain and monitor. Potassium is 5.1 and urine came back negative for infection. (Brett Melchor) Patient seen and evaluated with family practice medical doctor. Patient has history of recent drain placement. She has mild diffuse pain but no fever, no pus or bleeding. Surgery team and Dr. Soriano consulted upon patient's arrival. Radiographic studies reveal likely blockage of tube. Patient to be admitted to hospitalist service, covering for PMD 12/01/17 09:12 (Melinda Molina) - Lab Interpretations Lab Results: 11/28/17 12:55 11/28/17 12:55 Lab Results 11/28/17 12:55: Sodium 144, Potassium 5.1 H, Chloride 98, Carbon Dioxide 38 H, Anion Gap 13, BUN 15, Creatinine 0.6 L, Est GFR ( Amer) > 60, Est GFR ( Non-Af Amer) > 60, Random Glucose 118 H, Calcium 9.4, Total Bilirubin 0.1 L, AST 26, ALT 15, Alkaline Phosphatase 70, Total Protein 7.0, Albumin 3.4, Globulin 3.5, Albumin/Globulin Ratio 1.0 L, Lipase 30 11/28/17 12:55: PT 11.2, INR 0.98, APTT 28.1 11/28/17 12:55: WBC 9.2 D, RBC 4.01, Hgb 11.6 L, Hct 37.7, MCV 94.0, MCH 28.9, MCHC 30.8 L, RDW 14.4, Plt Count 274, MPV 9.4, Gran % 42.8 L, Lymph % (Auto) 44.2 H, Clinch % (Auto) 10.5 H, Eos % (Auto) 2.3, Baso % (Auto) 0.2, Gran # 3.93, Lymph # (Auto) 4.1 H, Clinch # (Auto) 1.0 H, Eos # (Auto) 0.2, Baso # (Auto) 0.02 - RAD Interpretation Radiology Orders: 11/28/17 11:50 CHEST PORTABLE [RAD] Stat 11/28/17 14:03 ABDOMEN (FLAT PLATE) 1VIEW [RAD] Stat - Medication Orders Current Medication Orders: Discontinued Medications Albuterol/Ipratropium (Duoneb 3 Mg/0.5 Mg (3 Ml) Ud) 3 ml INH Q4 PRN PRN Reason: SOB Clonazepam (Klonopin) 0.5 mg PO HS ANGIE PRN Reason: Protocol Last Admin: 11/29/17 21:05 Dose: 0.5 mg Behavioural Document 11/29/17 21:05 [id number] (Rec: 11/29/17 21:05 [id number] [facility] Maintenance Maintenance Dose Yes Divalproex Sodium (Depakote Dr(*Bid*)) 500 mg PO Q12 ANGIE PRN Reason: Protocol Last Admin: 11/30/17 10:40 Dose: 500 mg Behavioural Document 11/30/17 10:40 MV (Rec: 11/30/17 10:40 [facility] Maintenance Maintenance Dose Yes Docusate Sodium (Colace) 200 mg PO HS ANGIE Last Admin: 11/29/17 21:06 Dose: 200 mg Last Bowel Movement Document 11/29/17 21:06 [id number] (Rec: 11/29/17 21:06 [id number] [facility]) Last Bowel Movement Last Bowel Movement 11/28/17 Enoxaparin Sodium (Lovenox) 40 mg SC DAILY ANGIE PRN Reason: Protocol Last Admin: 11/30/17 10:41 Dose: 40 mg Subcutaneous Administrations Document 11/30/17 10:41 MV (Rec: 11/30/17 10:41 [facility] Injection Site MAR Injection Site Right Abdomen Charges for Administration # of Subcutaneous Administrations 1 Furosemide (Lasix) 20 mg PO DAILY ANGIE Last Admin: 11/30/17 10:41 Dose: 20 mg MAR Blood Pressure Document 11/30/17 10:41 MV (Rec: 11/30/17 10:41 [facility] Blood Pressure Blood Pressure (100/60-150/90) 105/60 Sodium Chloride (Sodium Chloride 0.9%) 1,000 mls @ 999 mls/hr IV .Q1H1M STA Stop: 11/28/17 12:52 Last Admin: 11/28/17 13:00 Dose: 999 mls/hr eMAR Start Stop Document 11/28/17 13:00 HI (Rec: 11/28/17 13:00 HI [facility] [place] Intravenous Solution Start Date 11/28/17 Start Time 13:00 Sodium Chloride (Sodium Chloride 0.9%) 1,000 mls @ 60 mls/hr IV .[id number] [facility] Last Admin: 11/28/17 17:34 Dose: 60 mls/hr eMAR Start Stop Document 11/28/17 17:34 HI (Rec: 11/28/17 17:34 HI [facility] [place] [facility] Intravenous Solution Start Date 11/28/17 Start Time 17:34 Metronidazole (Flagyl) 500 mg in 100 mls @ 100 mls/hr IVPB Q8 [facility] PRN Reason: Protocol Last Admin: 11/30/17 06:28 Dose: 100 mls/hr eMAR Start Stop Document 11/30/17 06:28 [id number] (Rec: 11/30/17 06:30 [id number] [facility]) Intravenous Solution Start Date 11/30/17 Start Time 06:28 End Date 11/30/17 End time 07:28 Total Infusion Time 60 Ciprofloxacin (Cipro 400mg/200ml Dsw) 400 mg in 200 mls @ 133.3 mls/hr IVPB Q12 [facility] PRN Reason: Protocol Stop: 11/28/17 18:43 Ceftriaxone Sodium (Rocephin 1 Gram Ivpb) 1 gm in 100 mls @ 100 mls/hr IVPB DAILY [facility] PRN Reason: Protocol Last Admin: 11/30/17 10:44 Dose: 100 mls/hr eMAR Start Stop Document 11/30/17 10:44 MV (Rec: 11/30/17 10:45 MV [facility] Intravenous Solution Start Date 11/30/17 Start Time 10:44 Ketorolac Tromethamine (Toradol) 30 mg IVP STAT STA Stop: 11/29/17 16:32 Last Admin: 11/29/17 18:01 Dose: 30 mg MAR Pain Assessment Document 11/29/17 18:01 JW (Rec: 11/29/17 18:02 JAY JAY [id number]) Pain Reassessment Is this a pain reassessment? No Sleep Is patient sleeping during reassessment? No Presence of Pain Presence of Pain Yes IVP Administration Document 11/29/17 18:01 JW (Rec: 11/29/17 18:02 JW [id number]) Charges for Administration # of IVP Administrations 1 Metoprolol Tartrate (Lopressor) 12.5 mg PO BID [facility] Last Admin: 11/29/17 10:21 Dose: Not Given Non-Admin Reason: BP Parameters Not Met Mirtazapine (Remeron) 15 mg PO [facility] Last Admin: 11/29/17 21:06 Dose: 15 mg Morphine Sulfate (Morphine) 0.5 mg IVP Q4H PRN PRN Reason: Pain, severe (8-10) Last Admin: 11/29/17 05:25 Dose: 0.5 mg MAR Pain Assessment Document 11/29/17 05:25 [facility] [place] (Rec: 11/29/17 05:26 [id number]) Pain Reassessment Is this a pain reassessment? No Presence of Pain Presence of Pain Yes Pain Scale Used Pain Scale Used Numeric Location Left, Right or Bilateral Bilateral Upper or Lower Upper Pain Location Body Site Abdomen Description Description Intermittent Intensity of Pain at present 6 Acceptable Level of Pain 2 Pain Behavior Moaning Guarding Irritability Aggravating Factors Changing Position Alleviating Factors/Management Medication Techniques Alleviating Factors Medication IVP Administration Document 11/29/17 05:25 [facility] (Rec: 11/29/17 05:26 [id number]) Charges for Administration # of IVP Administrations 1 Morphine Sulfate (Morphine) 0.5 mg IVP Q4H PRN PRN Reason: Pain, severe (8-10) Last Admin: 11/29/17 21:17 Dose: 0.5 mg IVP Administration Document 11/29/17 21:17 [id number] (Rec: 11/29/17 21:17 [id number] [facility]) Charges for Administration # of IVP Administrations 1 Non-Formulary Medication (Lacosamide [Vimpat]) 100 mg PO BID [facility] Last Admin: 11/29/17 13:33 Dose: 100 mg Lacosamide [Vimpat] (50mg (Home Med)) 100 mg PO BID [facility] Last Admin: 11/30/17 10:40 Dose: 100 mg Ondansetron HCl (Zofran Tab) 4 mg PO Q4H PRN PRN Reason: Nausea/Vomiting Ondansetron HCl (Zofran Inj) 4 mg IVP STAT STA Stop: 11/30/17 09:08 Last Admin: 11/30/17 09:15 Dose: 4 mg IVP Administration Document 11/30/17 09:15 MV (Rec: 11/30/17 09:15 MV [facility]) Charges for Administration # of IVP Administrations 1 Pantoprazole Sodium (Protonix Inj) 40 mg IVP DAILY ANGIE Last Admin: 11/30/17 10:42 Dose: 40 mg IVP Administration Document 11/30/17 10:42 MV (Rec: 11/30/17 10:42 MV [facility]) Charges for Administration # of IVP Administrations 1 Pneumococcal Polyvalent Vaccine (Pneumovax 23 Vaccine) 0.5 ml IM .ONCE ONE Stop: 11/29/17 01:16 - PA / CNC MACHINIST 2ND SHIFT / Resident Statement TREVON has reviewed & agrees with the documentation as recorded. TREVON has examined the patient and agrees with the treatment plan. <Brett Melchor - Last Filed: 11/28/17 19:46> Disposition/Present on Arrival - Present on Arrival Any Indicators Present on Arrival: No History of DVT/PE: No History of Uncontrolled Diabetes: No Urinary Catheter: No History of Decub. Ulcer: No History Surgical Site Infection Following: None - Disposition Have Diagnosis and Disposition been Completed?: Yes Disposition Time: 12:17 <Brett Melchor - Last Filed: 11/28/17 19:46> - Disposition Patient Plan: Admission <Melinda Molina - Last Filed: 12/01/17 09:16> - Disposition Diagnosis: Admission for biliary drainage tube placement, Abdominal pain Disposition: HOME/ ROUTINE Condition: STABLE
--- NOTE | 2017-11-28 12:53 | RAD ---
Date of service: 11/28/2017 HISTORY: r/o infiltrate COMPARISON: 11/12/2017 FINDINGS: LUNGS: No active pulmonary disease. PLEURA: No significant pleural effusion identified, no pneumothorax apparent. CARDIOVASCULAR: Mild cardiomegaly OSSEOUS STRUCTURES: No significant abnormalities. VISUALIZED UPPER ABDOMEN: Normal. OTHER FINDINGS: None. IMPRESSION: No active disease.
[2017-11-28 13:05] LABS: BASO # 0.02 K/mm3 (0.0-2.0); BASO % 0.2 % (0.0-3.0); EOS # 0.2 (0.0-0.7); EOS % 2.3 % (1.5-5.0); GRAN # 3.93 (1.4-6.5); GRAN % 42.8 % (50.0-68.0); HEMOGLOBIN 11.6 g/dL (12.0-16.0); LYMPH # 4.1 (1.2-3.4); LYMPH % 44.2 % (22.0-35.0); MEAN CORPUSCULAR HEMOGLOBIN 28.9 pg (25.0-35.0); MEAN CORPUSCULAR HGB CONC 30.8 g/dl (31.0-37.0); MEAN PLATELET VOLUME 9.4 fl (7.0-11.0); MONO % 10.5 % (1.0-6.0); RBC 4.01 10^6/uL (3.5-6.1); RED CELL DISTRIBUTION WIDTH 14.4 % (11.5-14.5); WHITE BLOOD COUNT 9.2 10^3/ul (4.5-11.0)
[2017-11-28 13:18] LABS: ALBUMIN 3.4 g/dL (3.0-4.8); ALT/SGPT 15 U/L (7-56); AST/SGOT 26 U/L (14-36); BLOOD UREA NITROGEN 15 mg/dL (7-21); CALCIUM 9.4 mg/dL (8.4-10.5); GFR AFRICAN-AMERICAN > 60; GFR NON-AFRICAN AMERICAN > 60; INR 0.98 (0.93-1.08); LIPASE 30 U/L (23-300); PARTIAL THROMBOPLASTIN TIME 28.1 Seconds (25.1-36.5); PROTHROMBIN TIME 11.2 SECONDS (9.4-12.5)
--- NOTE | 2017-11-28 13:26 | CP.PCM.CON ---
History of Present Illness - History of Present Illness History of Present Illness: General surgery consult note for Dr. Soriano Mrs. Posada is an 87 yr old female PMH COPD, epilepsy, dementia, multiple UTIs (last one was 3 months ago), cholecystitis s/p cholecystostomy tube on 11/06 who presents today with 2-3 days of right sided abdominal pain that began as burning and is now sharp and stabbing. As per the patient's granddaughter the abd pain has been present since her cholecystostomy tube procedure at [facility] with IR but has recently worsened. The family has noticed that the cholecystostomy tube has not been draining for the past 3 days. Pt takes Tylenol for pain with mild relief. Moving makes the pain worse. Pt denies fever and chills. She denies vomiting but has been nauseous. The patient's granddaughter states that the patient has not had an appetite for several days. Her last BM was yesterday. She c/o of dysuria described as a burning sensation with urination. The patient has not been sleeping well due discomfort. Pt has been at [facility] for occupational therapy. According to her granddaughter, the patient spent most of her time in a wheelchair at [facility]. PMHx: COPD, epilepsy, dementia, multiple UTIs (last one was 3 months ago), cholecystitis. Allergies: Moxifloxacin PSHx: R shoulder surgery, cholecystostomy (11/06), Ventral hernia repair Family Hx: Unknown Social Hx: Patient is a former smoker, quit 30 years ago. No alcohol or illicit drug use. Pt lives at home with her family. Review of Systems - Review of Systems All systems: reviewed and no additional remarkable complaints except Review of Systems: as per HPI - Constitutional Constitutional: Daytime Sleepiness, Fatigue - Gastrointestinal Gastrointestinal: As Per HPI, Abdominal Pain, Nausea. absent: Vomiting - Genitourinary Genitourinary: Dysuria Additional comments: Burning with urination Past Patient History - Infectious Disease Hx of Infectious Diseases: None - Tetanus Immunizations Tetanus Immunization: Unknown - Past Social History Smoking Status: Former Smoker - CARDIAC Hx Congestive Heart Failure: Yes - PULMONARY Hx Asthma: Yes Hx Chronic Obstructive Pulmonary Disease (COPD): Yes Hx Emphysema: Yes - NEUROLOGICAL Hx Dementia: Yes Hx Migraine: Yes Hx Seizures: Yes (on Depakote) - HEENT Hx HEENT Problems: No - RENAL Hx Chronic Kidney Disease: No - ENDOCRINE/METABOLIC Hx Hypothyroidism: Yes - HEMATOLOGICAL/ONCOLOGICAL Hx Blood Disorders: No - INTEGUMENTARY Hx Dermatological Problems: No - MUSCULOSKELETAL/RHEUMATOLOGICAL Hx Unsteady Gait: Yes Other/Comment: Recent falls - GASTROINTESTINAL Hx Gastrointestinal Disorders: No Hx Gall Bladder Disease: Yes Other/Comment: cholecystitis - GENITOURINARY/GYNECOLOGICAL Hx Incontinence: Yes - PSYCHIATRIC Hx Anxiety: Yes Hx Depression: Yes Hx Schizophrenia: Yes Hx Substance Use: No - SURGICAL HISTORY Hx Surgeries: Yes (Ventral hernia repair, constantin tube placement) Hx Eye Surgery: Yes Hx Orthopedic Surgery: Yes (left shldr, left hand) Other/Comment: Hernia repair - ANESTHESIA Hx Anesthesia Reactions: No Hx Malignant Hyperthermia: No Meds Allergies/Adverse Reactions: Allergies Allergy/AdvReac Type Severity Reaction Status Date / Time moxifloxacin Allergy ITCHING Verified 11/12/17 14:53 Physical Exam - Constitutional Appears: Well, Non-toxic, No Acute Distress, Confused, Chronically Ill - Head Exam Head Exam: ATRAUMATIC, NORMOCEPHALIC - Eye Exam Eye Exam: absent: Scleral icterus - ENT Exam Additional comments: inferior aspect of tongue negative for jaundice - Respiratory Exam Respiratory Exam: Clear to Auscultation Bilateral, NORMAL BREATHING PATTERN - Cardiovascular Exam Cardiovascular Exam: REGULAR RHYTHM - GI/Abdominal Exam GI & Abdominal Exam: Soft, Tenderness Additional comments: Moderate tenderness on R side of abdomen. Cholecystostomy tube site is clean dry and intact with no evidence of swelling erythema or infection, suture is securely in place - Extremities Exam Extremities exam: Positive for: pedal pulses present. Negative for: pedal edema - Neurological Exam Additional comments: Oriented to place and person but not time, patient is arousable but drowsy - Psychiatric Exam Psychiatric exam: Normal Affect, Normal Mood Additional comments: memory loss d/t dementia - Skin Skin Exam: Dry, Intact, Normal Color, Warm Results - Vital Signs Recent Vital Signs: Last Vital Signs Temp 98.0 F 11/28/17 11:22 Pulse 90 11/28/17 11:22 Resp 20 11/28/17 11:22 BP 85/56 L 11/28/17 11:22 Pulse Ox 100 11/28/17 11:22 - Labs Result Diagrams: 11/28/17 12:55 11/28/17 12:55 Labs: Laboratory Results - last 24 hr 11/28/17 12:55 WBC 9.2 D RBC 4.01 Hgb 11.6 L Hct 37.7 MCV 94.0 MCH 28.9 MCHC 30.8 L RDW 14.4 Plt Count 274 MPV 9.4 Gran % 42.8 L Lymph % (Auto) 44.2 H [place] % (Auto) 10.5 H Eos % (Auto) 2.3 Baso % (Auto) 0.2 Gran # 3.93 Lymph # (Auto) 4.1 H [place] # (Auto) 1.0 H Eos # (Auto) 0.2 Baso # (Auto) 0.02 Assessment & Plan - Assessment and Plan (Free Text) Assessment: 87 yr old female 3 weeks s/p cholecystostomy tube placement with worsening abdominal pain, lack of bilious drainage and dysuria Plan: Will get contrast tube study to determine patency and positioning of tube WBC count, bilirubin and alk phos normal family refused surgical intervention during prior treatment May require IR eval if tube obstructed or out of position Further recs per Dr. Bo Haskins, PGY 1
[2017-11-28] MEDS ORDERED: Iohexol 300 100 ML IJ ONE (14:54)
--- NOTE | 2017-11-28 15:27 | RAD ---
Date of service: 11/28/2017 PROCEDURE: Abdomen two views HISTORY: possible blocked cholecystostomy tube COMPARISON: TECHNIQUE: Contrast was injected into the cholecystotomy tube by the resident. FINDINGS: The study shows block age of the pigtail portion of the tube. Contrast extravasates into the surgical dressing on the surface of the skin. There is no opacification of the gallbladder lumen IMPRESSION: As above
[2017-11-28] MEDS ORDERED: Sodium Chloride 0.9% 1,000 ML IV SCH (16:15)
[2017-11-28 16:25] LABS: PH,URINE 7.5 (4.7-8.0); URINE BILIRUBIN NEGATIVE (NEGATIVE); URINE BLOOD NEGATIVE (NEGATIVE); URINE GLUCOSE (UA) NEGATIVE (NEGATIVE); URINE LEUKOCYTE ESTERASE NEGATIVE Leu/uL (NEGATIVE); URINE PROTEIN NEGATIVE mg/dL (<30 mg/dL); URINE UROBILINOGEN 0.2 E.U./dL (<1 E.U./dL)
[2017-11-28 16:27] LABS: URINE APPEARANCE CLEAR (CLEAR); URINE COLOR COLORLESS (YELLOW)
[2017-11-28] MEDS ORDERED: Albuterol-Ipratrop 3 mg / 0.5 (3 ml) UD INH PRN (16:27)
--- NOTE | 2017-11-28 16:41 | CP.PCM.HP ---
Addendum entered and electronically signed by Shin Hill DO 08:36: Patient had ECHO performed in October 2017, which shows EF of 59%. BNP's on previous admissions noted, are within normal limits on lower end. CHF diagnosis needs to be confirmed with family or as per cardiology. Original Note: <Mk Coyle - Last Filed: 11/28/17 17:15> History of Present Illness - History of Present Illness History of Present Illness: Mk Coyle DO PGY-1, [employer] Hospitalist History and Physical 87 y o female PMhx cholecystitis s/p cholecystostomy tube placement, CHF with unknown ejection fraction, hyperlipidemia, seizures (last one in October 2017), COPD/asthma, recurrent UTI, depression, dementia, hypothyroidism, presents with continued RUQ pain and nausea s/p gallbladder tube placement 2 weeks ago. Pt and pt's granddaughter provided hx at bedside due to pt's hx of dementia. Described pain as sharp and stabbing to RUQ, rates it as 7/10. Reports that cholecystostomy tube stopped draining 3 days ago at [facility], and called Dr. Soriano , who recommended pt come to the ED for a study to evaluate the patency of the tube. Pt also reported dysuria but no hematuria. Denies fever, chills, chest pain, sob, diarrhea, or other symptoms. In ED, surgical team performed tube placement test and pt failed test, demonstrating tube was dislodged. Family states that pt does not want cholecystectomy. Was informed by RN that Dr. Jimenez (IR) was at bedside and removed cholecystostomy tube. PMhx: cholecystitis s/p cholecystostomy tube placement, CHF with unknown ejection fraction, hyperlipidemia, seizures (last one in October 2017), COPD/asthma , recurrent UTI, depression, dementia, hypothyroidism PSurgHx: Ventral hernia repair, Left inguinal hernia repair, Left shoulder surgery, left hand surgery, cholecystostomy tube SOCHx: Tobacco: Former ETOH: Denies, ID: Denies; Came from [facility] ALL: Moxifloxacin (reaction: rash) MEDS: MAR reviewed PMD: Tracy Ramsey 12 point ROS done, otherwise as per HPI. Present on Admission - Present on Admission Any Indicators Present on Admission: No Review of Systems - Constitutional Constitutional: As Per HPI - Cardiovascular Cardiovascular: As Per HPI. absent: Acrocyanosis, Chest Pain, Chest Pain at Rest, Chest Pain with Activity, Claudication, Diaphoresis, Dyspnea, Dyspnea on Exertion, Edema, Irregular Heart Rhythm, Pain Radiating to Arm/Neck/Jaw, Leg Edema, Leg Ulcers, Lightheadedness, Orthopnea, Palpitations, Paroxysmal Nocturnal Dyspnea, Pedal Edema, Radiating Pain, Rapid Heart Rate, Slow Heart Rate, Syncope, Other - Respiratory Respiratory: absent: As Per HPI, Cough, Dyspnea, Hemoptysis, Dyspnea on Exertion , Wheezing, Snoring, Stridor, Pain on Inspiration, Chest Congestion, Excessive Mucous Production, Change in Mucous Color, Pain with Coughing, Other - Gastrointestinal Gastrointestinal: Abdominal Pain, Nausea. absent: As Per HPI, Belching, Bloating, Change in Bowel Habits, Change in Stool Character, Coffee Ground Emesis, Constipation, Cramping, Diarrhea, Dyspepsia, Dysphagia, Early Satiety, Excessive Flatus, Fecal Incontinence, Heartburn, Hematemesis, Hematochezia, Loose Stools, Melena, Odynophagia, Temesmus, Vomiting, Other - Genitourinary Genitourinary: Dysuria Past Patient History - Infectious Disease Hx of Infectious Diseases: None - Tetanus Immunizations Tetanus Immunization: Unknown - Past Social History Smoking Status: Former Smoker - CARDIAC Hx Congestive Heart Failure: Yes - PULMONARY Hx Asthma: Yes Hx Chronic Obstructive Pulmonary Disease (COPD): Yes Hx Emphysema: Yes - NEUROLOGICAL Hx Dementia: Yes Hx Migraine: Yes Hx Seizures: Yes (on Depakote) - HEENT Hx HEENT Problems: No - RENAL Hx Chronic Kidney Disease: No - ENDOCRINE/METABOLIC Hx Hypothyroidism: Yes - HEMATOLOGICAL/ONCOLOGICAL Hx Blood Disorders: No - INTEGUMENTARY Hx Dermatological Problems: No - MUSCULOSKELETAL/RHEUMATOLOGICAL Hx Unsteady Gait: Yes Other/Comment: Recent falls - GASTROINTESTINAL Hx Gastrointestinal Disorders: No Other/Comment: cholecystitis - GENITOURINARY/GYNECOLOGICAL Hx Incontinence: Yes - PSYCHIATRIC Hx Anxiety: Yes Hx Depression: Yes Hx Schizophrenia: Yes Hx Substance Use: No - SURGICAL HISTORY Hx Eye Surgery: Yes Hx Orthopedic Surgery: Yes (left shldr, left hand) Other/Comment: Hernia repair - ANESTHESIA Hx Anesthesia Reactions: No Hx Malignant Hyperthermia: No Meds Allergies/Adverse Reactions: Allergies Allergy/AdvReac Type Severity Reaction Status Date / Time moxifloxacin Allergy ITCHING Verified 11/12/17 14:53 Physical Exam - Constitutional Additional comments: AAOx2, no acute distress, appears ill - Head Exam Head Exam: ATRAUMATIC, NORMAL INSPECTION - Eye Exam Eye Exam: EOMI, Normal appearance, PERRL - ENT Exam ENT Exam: Mucous Membranes Moist, Normal Oropharynx - Neck Exam Neck exam: Positive for: Full Rom, Normal Inspection - Respiratory Exam Respiratory Exam: Clear to Auscultation Bilateral, NORMAL BREATHING PATTERN Additional comments: Trace wheezes auscultated in all lung haynes - Cardiovascular Exam Cardiovascular Exam: REGULAR RHYTHM, +S1, +S2 - GI/Abdominal Exam GI & Abdominal Exam: Normal Bowel Sounds, Soft - Extremities Exam Extremities exam: Positive for: full ROM, normal capillary refill, normal inspection, pedal pulses present - Back Exam Back exam: NORMAL INSPECTION - Neurological Exam Neurological exam: Alert Additional comments: Oriented x2, hx dementia - Psychiatric Exam Psychiatric exam: Normal Affect, Normal Mood - Skin Skin Exam: Dry, Intact, Normal Color, Warm Results - Vital Signs Recent Vital Signs: Last Vital Signs Temp 98.0 F 11/28/17 11:22 Pulse 90 11/28/17 11:22 Resp 20 11/28/17 11:22 BP 85/56 L 11/28/17 11:22 Pulse Ox 100 11/28/17 11:22 - Labs Result Diagrams: 11/28/17 12:55 11/28/17 12:55 Labs: Laboratory Results - last 24 hr 11/28/17 16:20 Urine Color Colorless Urine Appearance Clear Urine pH 7.5 Ur Specific [place] 1.010 Urine Protein Negative Urine Glucose (UA) Negative Urine Ketones Negative Urine Blood Negative Urine Nitrate Negative Urine Bilirubin Negative Urine Urobilinogen 0.2 Ur Leukocyte Esterase Negative Assessment & Plan - Assessment and Plan (Free Text) Assessment: 87 year old Female with PMH of cholecystitis s/p gall bladder tube placement, CHF with unknown EF, hyperlipidemia, epilepsy, COPD/asthma, recurrent UTI, depression, dementia, and hypothyroidism presents with continued right upper quadrant pain and nausea s/p cholecystostomy tube placement 2 weeks ago. Per family, tube stopped draining fluid 3 days ago. R/o intrabdominal infection. Pt s/p removal of cholecystostomy tube in ED by Dr. Jimenez (IR). Pt admitted to hospitalist service for possible replacement of drain and monitoring. Plan: Malfunction of cholecystostomy tube S/p removal of drain by Dr. Jimenez in ED, recommends observation overnight and possible replacement of drain IR consulted (Dr. Jimenez), recs appreciated Surgery consulted (Dr. Soriano), recs appreciated R/o intraabdominal infection Normal WBC, pt hypotensive on admission F/u labs IVF NS @ 60 cc/hr Cipro/flagyl for broad spectrum coverage CT abd/pelvis pending Full liquid diet Seizure and aspiration precautions ID consulted (Dr. Tobin), recs appreciated Dysuria: Pending urine cx Pt has hx recurrent UTIs Hx seizures C/w home medications Hx HTN On metoprolol and lasix, hold lasix until BP improves Hx depression C/w home medications Hx COPD/asthma C/w home medications PRN Pt seen, examined with, and plan d/w Dr. King, attending Mk Coyle DO PGY-1, [employer] Pager #[phone] <Cruz King - Last Filed: 11/30/17 10:20> Results - Vital Signs Recent Vital Signs: Last Vital Signs Temp 97.5 F L 11/30/17 08:03 Pulse 66 11/30/17 08:03 Resp 20 11/30/17 08:03 BP 105/53 L 11/30/17 08:03 Pulse Ox 95 11/30/17 08:03 - Labs Result Diagrams: 11/30/17 06:00 11/30/17 07:00 Labs: Laboratory Results - last 24 hr 11/30/17 11/30/17 06:00 07:00 WBC 7.1 RBC 3.76 Hgb 10.9 L Hct 34.5 L MCV 91.8 MCH 29.0 MCHC 31.6 RDW 14.5 Plt Count 278 MPV 9.6 Gran % 33.0 L Lymph % (Auto) 52.5 H [place] % (Auto) 9.7 H Eos % (Auto) 4.4 Baso % (Auto) 0.4 Gran # 2.34 Lymph # (Auto) 3.7 H [place] # (Auto) 0.7 H Eos # (Auto) 0.3 Baso # (Auto) 0.03 Sodium 143 Potassium 4.5 Chloride 103 Carbon Dioxide 34 H Anion Gap 11 BUN 18 Creatinine 0.6 L Est GFR ( Amer) > 60 Est GFR (Non-Af Amer) > 60 Random Glucose 93 Calcium 8.7 Total Bilirubin 0.1 L AST 19 ALT 14 Alkaline Phosphatase 55 Total Protein 6.1 Albumin 3.0 Globulin 3.1 Albumin/Globulin Ratio 1.0 L Attending/Attestation - Attestation I have personally seen and examined this patient.: Yes I have fully participated in the care of the patient.: Yes I have reviewed all pertinent clinical information: Yes Notes (Text): 11/30/17 10:17 Medical record note made by the resident after discussion with my direction and input after the patient was personally seen and examined by me. I have reviewed the chart and agree that the record accurately reflects by personal performance of the history, physical exam, data review, and medical decision-making, in the course for the patient. I have also personally directed the plan of care. 87 F with PMH of cholelithiasis, CHF , COPD/Asthma, recurrent UTI, seizure disorder, SP cholycystostomy last month for acute cholycystitis is admitted with malfunctioning cholycystostomy tube which has been removed in ER by surgery.Patient is c/o worsening abdominal pain, there is no abdominal distension.She has some tenderness on abdominal examination.We will get CT scan of abdomen and Pelvis.We will start on IV antibiotics, will follow up cultures and will get ID consultation. Management plan was discussed in detail with patient and family.
[2017-11-28] MEDS ORDERED: Ciprofloxacin 400mg/200ml D5W 400 MG/200 ML BAG IVPB SCH ×2 (17:00→17:12)
[2017-11-28] MEDS: Morphine 2 mg/ml ISec IVP PRN ×2 (17:34→21:38)
[2017-11-28] MEDS: metroNIDAZOLE IV 500 mg/100 ml 500 MG/100 ML BAG IVPB SCH ×2 (17:34→23:30)
[2017-11-28] MEDS: Enoxaparin 40 mg Syringe SC SCH (17:34)
--- NOTE | 2017-11-28 17:59 | CT ---
Date of service: 11/28/2017 PROCEDURE: CT Abdomen and Pelvis without intravenous contrast HISTORY: Status post removal of cholecystotomy tube. COMPARISON: 11/12/2017 TECHNIQUE: Unenhanced study. Neither oral nor intravenous contrast administered. Sensitivity and specificity for acute inflammatory processes limited by the absence of oral and intravenous contrast. Radiation dose: Total exam DLP = 824.44 mGy-cm. This CT exam was performed using one or more of the following dose reduction techniques: Automated exposure control, adjustment of the mA and/or kV according to patient size, and/or use of iterative reconstruction technique. FINDINGS: LOWER THORAX: Unremarkable. LIVER: Unremarkable. No gross lesion or ductal dilatation. GALLBLADDER AND BILE DUCTS: Status post removal of pigtail catheter in the gallbladder. Faint tract is identified in the skin surface to the intercostal muscles through which the prior to this tube was identified. Residual soft tissue/inflammatory changes antro lateral abdominal wall. No discrete drainable collection. The gallbladder is unremarkable without evidence of gallbladder wall thickening, fluid or other pathologic process. PANCREAS: Unremarkable. No gross lesion or ductal dilatation. SPLEEN: Unremarkable. ADRENALS: Unremarkable. No mass. KIDNEYS AND URETERS: Unremarkable. No hydronephrosis. No solid mass. Bilateral renal cysts again identified. VASCULATURE: Unremarkable. No aortic aneurysm. BOWEL: Unremarkable. No obstruction. No gross mural thickening. APPENDIX: Unremarkable. Normal appendix. PERITONEUM: Unremarkable. No free fluid. No free air. LYMPH NODES: Unremarkable. No enlarged lymph nodes. BLADDER: Unremarkable. REPRODUCTIVE: Unremarkable. BONES: No acute fracture. OTHER FINDINGS: None. IMPRESSION: No adverse findings following removal of pigtail cholecystotomy catheter. Expected findings antro lateral abdominal wall noted. Otherwise no interval change. Additional benign and/or incidental findings described above.
[2017-11-28] MEDS ORDERED: LACOSAMIDE 100 MG PO SCH (18:00)
--- NOTE | 2017-11-28 19:03 | CP.PCM.CON ---
History of Present Illness - History of Present Illness History of Present Illness: Infectious Disease Consultation: November 28, 2017 87 yo female with past medical history that includes cholelithiasis, recent episode of cholecystitis s/p cholecystotomy tube, CHF, COPD, depression, dementia, seizure disorder who [place] [facility] [place] worsening abdominal pain. Patient was recently in the hospital for cholecystitis when she had cholecystotomy tube placed. Patient had drainage from cholecystostomy tube placement but that stopped draining 3 days ago. Infectious Disease called for antibiotic management. PMHx: cholelithiasis, recent episode of cholecystitis s/p cholecystotomy tube, CHF, COPD, asthma, recurrent UTIs, emphysema, depression, HLD, dementia, seizure disorder, hypothyroidism PSHx: cholecystectomy, ventral hernia repair, left inguinal hernia repair, left shoulder surgery, left hand surgery. Allergies: Moxifloxacin Social Hx: No Tobacco or illicit drug use Ex-EtOH use. Active Medications Albuterol/Ipratropium (Duoneb 3 Mg/0.5 Mg (3 Ml) Ud) 3 ml INH Q4 PRN PRN Reason: SOB Clonazepam (Klonopin) 0.5 mg PO HS ANGIE PRN Reason: Protocol Divalproex Sodium (Depakote Dr(*Bid*)) 500 mg PO Q12 ANGIE PRN Reason: Protocol Docusate Sodium (Colace) 200 mg PO HS ANGIE Enoxaparin Sodium (Lovenox) 40 mg SC DAILY ANGIE PRN Reason: Protocol Last Admin: 11/28/17 17:34 Dose: 40 mg Furosemide (Lasix) 20 mg PO DAILY [facility] Sodium Chloride (Sodium Chloride 0.9%) 1,000 mls @ 60 mls/hr IV .[id number] [facility] Last Admin: 11/28/17 17:34 Dose: 60 mls/hr Metronidazole (Flagyl) 500 mg in 100 mls @ 100 mls/hr IVPB Q8 ANGIE PRN Reason: Protocol Last Admin: 11/28/17 17:34 Dose: 100 mls/hr Metoprolol Tartrate (Lopressor) 12.5 mg PO BID ANGIE Mirtazapine (Remeron) 15 mg PO HS ANGIE Morphine Sulfate (Morphine) 0.5 mg IVP Q4H PRN PRN Reason: Pain, severe (8-10) Last Admin: 11/28/17 17:34 Dose: 0.5 mg Non-Formulary Medication (Lacosamide [Vimpat]) 100 mg PO BID [facility] Ondansetron HCl (Zofran Tab) 4 mg PO Q4H PRN PRN Reason: Nausea/Vomiting Pantoprazole Sodium (Protonix Inj) 40 mg IVP DAILY [facility] Last Admin: 11/28/17 17:34 Dose: 40 mg Family Hx: none given ROS: Abdominal Pain. No fevers, chills, nausea, vomiting, diarrhea, headaches, dizziness, chest pain , melena, hematuria, hematemesis, hematochezia, depression, anxiety. Past Patient History - Infectious Disease Hx of Infectious Diseases: None - Tetanus Immunizations Tetanus Immunization: Unknown - Past Social History Smoking Status: Former Smoker - CARDIAC Hx Congestive Heart Failure: Yes - PULMONARY Hx Asthma: Yes Hx Chronic Obstructive Pulmonary Disease (COPD): Yes Hx Emphysema: Yes - NEUROLOGICAL Hx Dementia: Yes Hx Migraine: Yes Hx Seizures: Yes (on Depakote) - HEENT Hx HEENT Problems: No - RENAL Hx Chronic Kidney Disease: No - ENDOCRINE/METABOLIC Hx Hypothyroidism: Yes - HEMATOLOGICAL/ONCOLOGICAL Hx Blood Disorders: No - INTEGUMENTARY Hx Dermatological Problems: No - MUSCULOSKELETAL/RHEUMATOLOGICAL Hx Unsteady Gait: Yes Other/Comment: Recent falls - GASTROINTESTINAL Hx Gastrointestinal Disorders: No Other/Comment: cholecystitis - GENITOURINARY/GYNECOLOGICAL Hx Incontinence: Yes - PSYCHIATRIC Hx Anxiety: Yes Hx Depression: Yes Hx Schizophrenia: Yes Hx Substance Use: No - SURGICAL HISTORY Hx Eye Surgery: Yes Hx Orthopedic Surgery: Yes (left shldr, left hand) Other/Comment: Hernia repair - ANESTHESIA Hx Anesthesia Reactions: No Hx Malignant Hyperthermia: No Meds Allergies/Adverse Reactions: Allergies Allergy/AdvReac Type Severity Reaction Status Date / Time moxifloxacin Allergy ITCHING Verified 11/12/17 14:53 - Medications Medications: Current Medications Albuterol/Ipratropium (Duoneb 3 Mg/0.5 Mg (3 Ml) Ud) 3 ml INH Q4 PRN PRN Reason: SOB Clonazepam (Klonopin) 0.5 mg PO HS [facility] PRN Reason: Protocol Divalproex Sodium (Depakote Dr(*Bid*)) 500 mg PO Q12 ANGIE PRN Reason: Protocol Docusate Sodium (Colace) 200 mg PO HS [facility] Enoxaparin Sodium (Lovenox) 40 mg SC DAILY [facility] PRN Reason: Protocol Last Admin: 11/28/17 17:34 Dose: 40 mg Furosemide (Lasix) 20 mg PO DAILY [facility] Sodium Chloride (Sodium Chloride 0.9%) 1,000 mls @ 60 mls/hr IV .[id number] [facility] Last Admin: 11/28/17 17:34 Dose: 60 mls/hr Metronidazole (Flagyl) 500 mg in 100 mls @ 100 mls/hr IVPB Q8 [facility] PRN Reason: Protocol Last Admin: 11/28/17 17:34 Dose: 100 mls/hr Ciprofloxacin (Cipro 400mg/200ml Dsw) 400 mg in 200 mls @ 133.3 mls/hr IVPB Q12 [facility] PRN Reason: Protocol Stop: 11/28/17 18:43 Metoprolol Tartrate (Lopressor) 12.5 mg PO BID [facility] Mirtazapine (Remeron) 15 mg PO HS [facility] Morphine Sulfate (Morphine) 0.5 mg IVP Q4H PRN PRN Reason: Pain, severe (8-10) Last Admin: 11/28/17 17:34 Dose: 0.5 mg Non-Formulary Medication (Lacosamide [Vimpat]) 100 mg PO BID [facility] Ondansetron HCl (Zofran Tab) 4 mg PO Q4H PRN PRN Reason: Nausea/Vomiting Pantoprazole Sodium (Protonix Inj) 40 mg IVP DAILY [facility] Last Admin: 11/28/17 17:34 Dose: 40 mg Physical Exam - Constitutional Appears: Non-toxic, No Acute Distress, Chronically Ill - Head Exam Head Exam: ATRAUMATIC, NORMOCEPHALIC - Eye Exam Eye Exam: EOMI, PERRL Pupil Exam: NORMAL ACCOMODATION, PERRL - ENT Exam ENT Exam: Mucous Membranes Moist, Normal External Ear Exam, TM's Normal Bilaterally - Neck Exam Neck exam: Positive for: Full Rom, Normal Inspection - Respiratory Exam Respiratory Exam: Clear to Auscultation Bilateral, NORMAL BREATHING PATTERN. absent: Rales, Rhonchi, Wheezes - Cardiovascular Exam Cardiovascular Exam: REGULAR RHYTHM, RRR, +S1, +S2 - GI/Abdominal Exam GI & Abdominal Exam: Normal Bowel Sounds, Soft, Tenderness (questionable mild lower quadrant tenderness.). absent: Distended - Extremities Exam Extremities exam: Positive for: full ROM, normal inspection - Neurological Exam Neurological exam: Alert, CN II-XII Intact Additional comments: AAOx2, no acute distress, Hx of dementia. - Psychiatric Exam Psychiatric exam: Normal Affect, Normal Mood - Skin Skin Exam: Intact, Normal Color Results - Vital Signs Recent Vital Signs: Last Vital Signs Temp 98.9 F 11/28/17 18:27 Pulse 89 11/28/17 18:27 Resp 18 11/28/17 18:27 BP 104/67 11/28/17 18:27 Pulse Ox 100 11/28/17 18:27 - Labs Result Diagrams: 11/28/17 12:55 11/28/17 12:55 Labs: Laboratory Results - last 24 hr 11/28/17 16:20 Urine Color Colorless Urine Appearance Clear Urine pH 7.5 Ur Specific [place] 1.010 Urine Protein Negative Urine Glucose (UA) Negative Urine Ketones Negative Urine Blood Negative Urine Nitrate Negative Urine Bilirubin Negative Urine Urobilinogen 0.2 Ur Leukocyte Esterase Negative Assessment & Plan - Assessment and Plan (Free Text) Assessment: 87 yo Female with past medical history that includes cholelithiasis, recent episode of cholecystitis s/p cholecystotomy tube, CHF, COPD, depression, dementia, seizure disorder who [place] [facility] [place] pain. Patient was recently in the hospital for cholecystitis when she had cholecystotomy tube placed. Patient had drainage from cholecystostomy tube placement but that stopped draining 3 days ago. Cholecystostomy tube removed in ER by Dr. Jimenez from IR. No leukocytosis or shift. Fluoroquinolone allergy (rash on moxifloxacin). Urine and blood send for cultures. Possible chronic pain in the abdomen. Started on Flagyl. Can add Rocephin for now until cutlures return. CT of Abd/Pelvis was relatively unremarkable. Supportive care. Spoke with Dr. King. Thank you for allowing me to participate in the care of the patient, we will follow with you.
--- NOTE | 2017-11-28 19:31 | CARD ---
APPROVED REPORT Date of service: 11/28/2017 EKG Measurement Heart [id number] <Conclusion> Normal sinus rhythm Left axis deviation Left ventricular hypertrophy with repolarization abnormality Abnormal ECG
[2017-11-28] MEDS: Divalproex 500 mg DR(BID formulation) PO SCH (21:01)
[2017-11-29 01:03] VITALS: BMI 27.6
[2017-11-29] MEDS ORDERED: Pneumococcal 23-Valent Vaccine IM ONE (01:15)
[2017-11-29] MEDS: metroNIDAZOLE IV 500 mg/100 ml 500 MG/100 ML BAG IVPB SCH ×3 (05:15→21:05)
[2017-11-29] MEDS: Morphine 2 mg/ml ISec IVP PRN (05:25)
[2017-11-29 07:01] LABS: BLOOD UREA NITROGEN 13 mg/dL (7-21); GFR AFRICAN-AMERICAN > 60; GFR NON-AFRICAN AMERICAN > 60
[2017-11-29 07:02] LABS: ALBUMIN 3.2 g/dL (3.0-4.8); ALT/SGPT 14 U/L (7-56); AST/SGOT 28 U/L (14-36); CALCIUM 8.9 mg/dL (8.4-10.5)
[2017-11-29 07:11] LABS: BASO # 0.02 K/mm3 (0.0-2.0); BASO % 0.2 % (0.0-3.0); EOS # 0.3 (0.0-0.7); EOS % 3.5 % (1.5-5.0); GRAN # 3.5 (1.4-6.5); GRAN % 43.8 % (50.0-68.0); HEMOGLOBIN 11.4 g/dL (12.0-16.0); LYMPH # 3.6 (1.2-3.4); LYMPH % 44.3 % (22.0-35.0); MEAN CELL VOLUME 92.8 fl (80.0-105.0); MEAN CORPUSCULAR HEMOGLOBIN 29.2 pg (25.0-35.0); MEAN CORPUSCULAR HGB CONC 31.5 g/dl (31.0-37.0); MEAN PLATELET VOLUME 9.5 fl (7.0-11.0); MONO # 0.7 (0.1-0.6); MONO % 8.2 % (1.0-6.0); RBC 3.9 10^6/uL (3.5-6.1); RED CELL DISTRIBUTION WIDTH 14.5 % (11.5-14.5)
[2017-11-29 08:10] LABS: PROTHROMBIN TIME 11.8 SECONDS (9.4-12.5)
[2017-11-29 08:11] LABS: INR 1.03 (0.93-1.08); PARTIAL THROMBOPLASTIN TIME 27.8 Seconds (25.1-36.5)
--- NOTE | 2017-11-29 09:51 | CP.PCM.PN ---
Subjective - Date & Time of Evaluation Date of Evaluation: 11/29/17 Time of Evaluation: 09:35 - Subjective Subjective: General Surgery Progress Note for Dr. Soriano Patient seen and examined at bedside this am. No acute events overnight. Pt is s /p cholecystostomy tube removal. She reports pain in LLQ quadrant, and expressed concern of receiving her home meds. Pt was able to tolerate soft consistency breakfast. She denies nausea, vomiting, hematemsis, constipation or diarrhea. Objective - Vital Signs/Intake and Output Vital Signs (last 24 hours): Temp Pulse Resp BP Pulse Ox 98.7 F 80 19 97/57 L 92 L 11/29/17 06:00 11/29/17 06:00 11/29/17 06:00 11/29/17 06:00 11/29/17 06:00 Intake and Output: 11/29/17 11/29/17 06:59 18:59 Intake Total 1200 Balance 1200 - Medications Medications: Current Medications Albuterol/Ipratropium (Duoneb 3 Mg/0.5 Mg (3 Ml) Ud) 3 ml INH Q4 PRN PRN Reason: SOB Clonazepam (Klonopin) 0.5 mg PO HS ANGIE PRN Reason: Protocol Last Admin: 11/28/17 21:01 Dose: 0.5 mg Divalproex Sodium (Depakote Dr(*Bid*)) 500 mg PO Q12 ANGIE PRN Reason: Protocol Last Admin: 11/28/17 21:01 Dose: 500 mg Docusate Sodium (Colace) 200 mg PO HS [facility] Last Admin: 11/28/17 21:01 Dose: 200 mg Enoxaparin Sodium (Lovenox) 40 mg SC DAILY ANGIE PRN Reason: Protocol Last Admin: 11/28/17 17:34 Dose: 40 mg Furosemide (Lasix) 20 mg PO DAILY [facility] Sodium Chloride (Sodium Chloride 0.9%) 1,000 mls @ 60 mls/hr IV .[id number] ANGIE Last Admin: 11/28/17 17:34 Dose: 60 mls/hr Metronidazole (Flagyl) 500 mg in 100 mls @ 100 mls/hr IVPB Q8 ANGIE PRN Reason: Protocol Last Admin: 11/29/17 05:15 Dose: 100 mls/hr Ceftriaxone Sodium (Rocephin 1 Gram Ivpb) 1 gm in 100 mls @ 100 mls/hr IVPB DAILY [facility] PRN Reason: Protocol Metoprolol Tartrate (Lopressor) 12.5 mg PO BID [facility] Mirtazapine (Remeron) 15 mg PO HS [facility] Last Admin: 11/28/17 21:12 Dose: 15 mg Morphine Sulfate (Morphine) 0.5 mg IVP Q4H PRN PRN Reason: Pain, severe (8-10) Last Admin: 11/29/17 05:25 Dose: 0.5 mg Non-Formulary Medication (Lacosamide [Vimpat]) 100 mg PO BID [facility] Ondansetron HCl (Zofran Tab) 4 mg PO Q4H PRN PRN Reason: Nausea/Vomiting Pantoprazole Sodium (Protonix Inj) 40 mg IVP DAILY [facility] Last Admin: 11/28/17 17:34 Dose: 40 mg - Labs Labs: 11/29/17 06:30 11/29/17 05:45 PT 11.8 SECONDS (9.4-12.5) 11/29/17 07:40 INR 1.03 (0.93-1.08) 11/29/17 07:40 APTT 27.8 Seconds (25.1-36.5) 11/29/17 07:40 - Constitutional Appears: Well, Non-toxic, No Acute Distress - Head Exam Head Exam: NORMAL INSPECTION - Eye Exam Eye Exam: Normal appearance - ENT Exam ENT Exam: Mucous Membranes Dry - Respiratory Exam Respiratory Exam: NORMAL BREATHING PATTERN - GI/Abdominal Exam GI & Abdominal Exam: Tenderness (in LUQ upon palpation. RUQ negative for tenderness) - Extremities Exam Extremities Exam: absent: Calf Tenderness - Skin Additional comments: Cholecystostomy tube site clean dry and intact. No purulence noted. Assessment and Plan - Assessment and Plan (Free Text) Assessment: 87 y/o F s/p cholecystostomy tube removal Plan: - No surgical intervention at this time - Continue abx - Continue analgesics - Monitor for signs of biliary colic/cholecystitis - Discussed with Dr. Bo Patricio PGY1
[2017-11-29] MEDS: Divalproex 500 mg DR(BID formulation) PO SCH ×2 (10:20→21:06)
[2017-11-29] MEDS: Enoxaparin 40 mg Syringe SC SCH (10:21)
[2017-11-29] MEDS: cefTRIAXone 1 gm 1 GM/100 ML BAG IVPB SCH (10:23)
[2017-11-29] MEDS ORDERED: Morphine 2 mg/2 mL syringe IVP PRN (13:12)
--- NOTE | 2017-11-29 15:21 | CP.PCM.PN ---
Subjective - Date & Time of Evaluation Date of Evaluation: 11/29/17 Time of Evaluation: 14:00 - Subjective Subjective: Infectious Disease Follow Up: November 29, 2017 87 yo female with past medical history that includes cholelithiasis, recent episode of cholecystitis s/p cholecystotomy tube, CHF, COPD, depression, dementia, seizure disorder who was brought in by EMS to [facility] [place]hab facility for worsening abdominal pain. Patient was recently in the hospital for cholecystitis when she had cholecystotomy tube placed. Patient had drainage from cholecystostomy tube placement but that stopped draining 3 days ago. Infectious Disease called for antibiotic management. Objective - Vital Signs/Intake and Output Vital Signs (last 24 hours): Temp Pulse Resp BP Pulse Ox 98.7 F 80 19 97/57 L 92 L 11/29/17 06:00 11/29/17 06:00 11/29/17 06:00 11/29/17 06:00 11/29/17 06:00 Intake and Output: 11/29/17 11/29/17 06:59 18:59 Intake Total 1200 780 Balance 1200 780 - Medications Medications: Current Medications Albuterol/Ipratropium (Duoneb 3 Mg/0.5 Mg (3 Ml) Ud) 3 ml INH Q4 PRN PRN Reason: SOB Clonazepam (Klonopin) 0.5 mg PO HS ANGIE PRN Reason: Protocol Last Admin: 11/28/17 21:01 Dose: 0.5 mg Divalproex Sodium (Depakote Dr(*Bid*)) 500 mg PO Q12 ANGIE PRN Reason: Protocol Last Admin: 11/29/17 10:20 Dose: 500 mg Docusate Sodium (Colace) 200 mg PO HS [facility] Last Admin: 11/28/17 21:01 Dose: 200 mg Enoxaparin Sodium (Lovenox) 40 mg SC DAILY ANGIE PRN Reason: Protocol Last Admin: 11/29/17 10:21 Dose: 40 mg Furosemide (Lasix) 20 mg PO DAILY [facility] Sodium Chloride (Sodium Chloride 0.9%) 1,000 mls @ 60 mls/hr IV .[id number] ANGIE Last Admin: 11/28/17 17:34 Dose: 60 mls/hr Metronidazole (Flagyl) 500 mg in 100 mls @ 100 mls/hr IVPB Q8 ANGIE PRN Reason: Protocol Last Admin: 11/29/17 13:32 Dose: 100 mls/hr Ceftriaxone Sodium (Rocephin 1 Gram Ivpb) 1 gm in 100 mls @ 100 mls/hr IVPB DAILY [facility] PRN Reason: Protocol Last Admin: 11/29/17 10:23 Dose: 100 mls/hr Metoprolol Tartrate (Lopressor) 12.5 mg PO BID [facility] Last Admin: 11/29/17 10:21 Dose: Not Given Mirtazapine (Remeron) 15 mg PO HS [facility] Last Admin: 11/28/17 21:12 Dose: 15 mg Morphine Sulfate (Morphine) 0.5 mg IVP Q4H PRN PRN Reason: Pain, severe (8-10) Lacosamide [Vimpat] (50mg (Home Med)) 100 mg PO BID [facility] Ondansetron HCl (Zofran Tab) 4 mg PO Q4H PRN PRN Reason: Nausea/Vomiting Pantoprazole Sodium (Protonix Inj) 40 mg IVP DAILY [facility] Last Admin: 11/29/17 10:22 Dose: 40 mg - Labs Labs: 11/29/17 06:30 11/29/17 05:45 PT 11.8 SECONDS (9.4-12.5) 11/29/17 07:40 INR 1.03 (0.93-1.08) 11/29/17 07:40 APTT 27.8 Seconds (25.1-36.5) 11/29/17 07:40 - Constitutional Appears: Non-toxic, No Acute Distress, Chronically Ill - Head Exam Head Exam: ATRAUMATIC, NORMOCEPHALIC - Eye Exam Eye Exam: EOMI, PERRL Pupil Exam: NORMAL ACCOMODATION, PERRL - ENT Exam ENT Exam: Mucous Membranes Moist, Normal External Ear Exam, TM's Normal Bilaterally - Neck Exam Neck Exam: Full ROM, Normal Inspection - Respiratory Exam Respiratory Exam: Clear to Ausculation Bilateral, NORMAL BREATHING PATTERN. absent: Rales, Rhonchi, Wheezes - Cardiovascular Exam Cardiovascular Exam: REGULAR RHYTHM, RRR, +S1, +S2 - GI/Abdominal Exam GI & Abdominal Exam: Soft, Normal Bowel Sounds. absent: Distended, Tenderness - Extremities Exam Extremities Exam: Full ROM, Normal Inspection - Neurological Exam Neurological Exam: Alert, Awake, CN II-XII Intact Additional comments: AAOx2, no acute distress, Hx of dementia. - Psychiatric Exam Psychiatric exam: Normal Affect, Normal Mood - Skin Skin Exam: Intact, Normal Color Assessment and Plan - Assessment and Plan (Free Text) Assessment: 87 yo Female with past medical history that includes cholelithiasis, recent episode of cholecystitis s/p cholecystotomy tube, CHF, COPD, depression, dementia, seizure disorder who was brought in by EMS to [facility] [place] from rehab facility for worsening abdominal pain. Patient was recently in the hospital for cholecystitis when she had cholecystotomy tube placed. Patient had drainage from cholecystostomy tube placement but that stopped draining 3 days ago. Cholecystostomy tube removed in ER by Dr. Jimenez from IR. No leukocytosis or shift. Fluoroquinolone allergy (rash on moxifloxacin). Urine and blood send for cultures. Possible chronic pain in the abdomen. Started on Flagyl. On Rocephin for now until cutlures return. CT of Abd/Pelvis was relatively unremarkable. Supportive care. Spoke with Dr. King. Thank you for allowing me to participate in the care of the patient, we will follow with you.
[2017-11-29] MEDS: LACOSAMIDE 50 MG PO SCH (18:01)
--- NOTE | 2017-11-29 19:53 | CP.PCM.PN ---
<Mk Coyle - Last Filed: 11/29/17 22:31> Subjective - Date & Time of Evaluation Date of Evaluation: 11/29/17 Time of Evaluation: 11:10 - Subjective Subjective: Mk Coyle DO PGY-1, [facility] Progress Note Pt seen and examined at bedside. C/o some abd pain, but improved since yesterday , states she is tolerating PO diet. No acute events reported overnight. Objective - Vital Signs/Intake and Output Vital Signs (last 24 hours): Temp Pulse Resp BP Pulse Ox 98.3 F 55 L 19 100/68 93 L 11/29/17 17:48 11/29/17 17:48 11/29/17 17:48 11/29/17 17:48 11/29/17 17:48 Intake and Output: 11/29/17 11/30/17 18:59 06:59 Intake Total 780 Balance 780 - Medications Medications: Current Medications Albuterol/Ipratropium (Duoneb 3 Mg/0.5 Mg (3 Ml) Ud) 3 ml INH Q4 PRN PRN Reason: SOB Clonazepam (Klonopin) 0.5 mg PO HS ANGIE PRN Reason: Protocol Last Admin: 11/28/17 21:01 Dose: 0.5 mg Divalproex Sodium (Depakote Dr(*Bid*)) 500 mg PO Q12 ANGIE PRN Reason: Protocol Last Admin: 11/29/17 10:20 Dose: 500 mg Docusate Sodium (Colace) 200 mg PO HS ANGIE Last Admin: 11/28/17 21:01 Dose: 200 mg Enoxaparin Sodium (Lovenox) 40 mg SC DAILY [facility]GIE PRN Reason: Protocol Last Admin: 11/29/17 10:21 Dose: 40 mg Furosemide (Lasix) 20 mg PO DAILY [facility] Sodium Chloride (Sodium Chloride 0.9%) 1,000 mls @ 60 mls/hr IV .[id number] ANGIE Last Admin: 11/28/17 17:34 Dose: 60 mls/hr Metronidazole (Flagyl) 500 mg in 100 mls @ 100 mls/hr IVPB Q8 ANGIE PRN Reason: Protocol Last Admin: 11/29/17 13:32 Dose: 100 mls/hr Ceftriaxone Sodium (Rocephin 1 Gram Ivpb) 1 gm in 100 mls @ 100 mls/hr IVPB DAILY [facility] PRN Reason: Protocol Last Admin: 11/29/17 10:23 Dose: 100 mls/hr Metoprolol Tartrate (Lopressor) 12.5 mg PO BID [facility] Last Admin: 11/29/17 10:21 Dose: Not Given Mirtazapine (Remeron) 15 mg PO HS [facility] Last Admin: 11/28/17 21:12 Dose: 15 mg Morphine Sulfate (Morphine) 0.5 mg IVP Q4H PRN PRN Reason: Pain, severe (8-10) Lacosamide [Vimpat] (50mg (Home Med)) 100 mg PO BID [facility] Last Admin: 11/29/17 18:01 Dose: 100 mg Ondansetron HCl (Zofran Tab) 4 mg PO Q4H PRN PRN Reason: Nausea/Vomiting Pantoprazole Sodium (Protonix Inj) 40 mg IVP DAILY [facility] Last Admin: 11/29/17 10:22 Dose: 40 mg - Labs Labs: 11/29/17 06:30 11/29/17 05:45 PT 11.8 SECONDS (9.4-12.5) 11/29/17 07:40 INR 1.03 (0.93-1.08) 11/29/17 07:40 APTT 27.8 Seconds (25.1-36.5) 11/29/17 07:40 - Constitutional Appears: Non-toxic, No Acute Distress, Confused - Head Exam Head Exam: ATRAUMATIC, NORMAL INSPECTION - Eye Exam Eye Exam: EOMI, Normal appearance, PERRL - ENT Exam ENT Exam: Mucous Membranes Moist, Normal Oropharynx - Respiratory Exam Respiratory Exam: Clear to Ausculation Bilateral, NORMAL BREATHING PATTERN - Cardiovascular Exam Cardiovascular Exam: REGULAR RHYTHM, +S1, +S2 - GI/Abdominal Exam GI & Abdominal Exam: Soft, Normal Bowel Sounds Additional comments: Mild diffuse tenderness to palpation in all 4 quadrants - Extremities Exam Extremities Exam: Full ROM, Normal Capillary Refill, Normal Inspection - Neurological Exam Neurological Exam: Alert, Awake Additional comments: Oriented x2 - Skin Skin Exam: Dry, Intact, Normal Color, Warm Assessment and Plan - Assessment and Plan (Free Text) Assessment: 87 year old Female with PMH of cholecystitis s/p gall bladder tube placement, CHF with unknown EF, hyperlipidemia, epilepsy, COPD/asthma, recurrent UTI, depression, dementia, and hypothyroidism presents with continued right upper quadrant pain and nausea s/p cholecystostomy tube placement 2 weeks ago. Per family, tube stopped draining fluid 3 days before admission. R/o intrabdominal infection. Pt s/p removal of cholecystostomy tube in ED by Dr. Jimenez (IR). Pt admitted to hospitalist service for continued monitoring. Plan: Malfunction of cholecystostomy tube S/p removal of drain by Dr. Jimenez (IR) in ED, pt will not need tube replaced at this time Surgery consulted (Dr. Soriano), no surgical intervention at this time. Pt to f/ u outpatient at Dr. Soriano's office Abd pain, likely 2/2 recent cholecystostomy tube displacement Normal WBC, pt hypotensive on admission Trend labs IVF NS @ 60 cc/hr Rocephin/flagyl for broad spectrum coverage CT abd/pelvis 11/28: no acute pathology Tolerating diet ID consulted (Dr. Tobin), recs appreciated Pain control: morphine 0.55 mg q 4 h PRN, monitor for clinical improvement Dysuria U/a neg Pt has hx recurrent UTIs Hx seizures C/w home medications Seizure and aspiration precautions Hx HTN On metoprolol and lasix, hold lasix until BP improves Hx depression C/w home medications Hx COPD/asthma C/w home medications PRN Pt seen, examined with, and plan d/w Dr. King, attending Mk Coyle DO PGY-1, [facility] Pager #[phone] <Cruz King - Last Filed: 11/30/17 10:24> Objective - Vital Signs/Intake and Output Vital Signs (last 24 hours): Temp Pulse Resp BP Pulse Ox 97.5 F L 66 20 105/53 L 95 11/30/17 08:03 11/30/17 08:03 11/30/17 08:03 11/30/17 08:03 11/30/17 08:03 Intake and Output: 11/30/17 11/30/17 06:59 18:59 Intake Total 960 240 Balance 960 240 - Medications Medications: Current Medications Albuterol/Ipratropium (Duoneb 3 Mg/0.5 Mg (3 Ml) Ud) 3 ml INH Q4 PRN PRN Reason: SOB Clonazepam (Klonopin) 0.5 mg PO HS ANGIE PRN Reason: Protocol Last Admin: 11/29/17 21:05 Dose: 0.5 mg Divalproex Sodium (Depakote Dr(*Bid*)) 500 mg PO Q12 [facility] PRN Reason: Protocol Last Admin: 11/29/17 21:06 Dose: 500 mg Docusate Sodium (Colace) 200 mg PO HS [facility] Last Admin: 11/29/17 21:06 Dose: 200 mg Enoxaparin Sodium (Lovenox) 40 mg SC DAILY [facility] PRN Reason: Protocol Last Admin: 11/29/17 10:21 Dose: 40 mg Furosemide (Lasix) 20 mg PO DAILY [facility] Sodium Chloride (Sodium Chloride 0.9%) 1,000 mls @ 60 mls/hr IV .[id number] [facility] Last Admin: 11/28/17 17:34 Dose: 60 mls/hr Metronidazole (Flagyl) 500 mg in 100 mls @ 100 mls/hr IVPB Q8 [facility] PRN Reason: Protocol Last Admin: 11/30/17 06:28 Dose: 100 mls/hr Ceftriaxone Sodium (Rocephin 1 Gram Ivpb) 1 gm in 100 mls @ 100 mls/hr IVPB DAILY [facility] PRN Reason: Protocol Last Admin: 11/29/17 10:23 Dose: 100 mls/hr Mirtazapine (Remeron) 15 mg PO [facility] Last Admin: 11/29/17 21:06 Dose: 15 mg Morphine Sulfate (Morphine) 0.5 mg IVP Q4H PRN PRN Reason: Pain, severe (8-10) Last Admin: 11/29/17 21:17 Dose: 0.5 mg Lacosamide [Vimpat] (50mg (Home Med)) 100 mg PO BID [facility] Last Admin: 11/29/17 18:01 Dose: 100 mg Ondansetron HCl (Zofran Tab) 4 mg PO Q4H PRN PRN Reason: Nausea/Vomiting Pantoprazole Sodium (Protonix Inj) 40 mg IVP DAILY [facility] Last Admin: 11/29/17 10:22 Dose: 40 mg - Labs Labs: 11/30/17 06:00 11/30/17 07:00 PT 11.8 SECONDS (9.4-12.5) 11/29/17 07:40 INR 1.03 (0.93-1.08) 11/29/17 07:40 APTT 27.8 Seconds (25.1-36.5) 11/29/17 07:40 Attending/Attestation - Attestation I have personally seen and examined this patient.: Yes I have fully participated in the care of the patient.: Yes I have reviewed all pertinent clinical information, including history, physical exam and plan: Yes Notes (Text): 11/30/17 10:22 Medical record note made by the resident after discussion with my direction and input after the patient was personally seen and examined by me. I have reviewed the chart and agree that the record accurately reflects by personal performance of the history, physical exam, data review, and medical decision-making, in the course for the patient. I have also personally directed the plan of care. 87 F with PMH of cholelithiasis, CHF , COPD/Asthma, recurrent UTI, seizure disorder, SP cholycystostomy last month for acute cholycystitis is admitted with malfunctioning cholycystostomy tube which has been removed in ER by surgery.CT scan of abdomen and Pelvis was reviewed.Patient abdominal pain is better.Theree is no plan for any intervention as per IR and surgery.Blood pressure is running low, we will discontinue metoprolol.Cultures are pending at this time.Patient is asymptometic.
[2017-11-30] MEDS: metroNIDAZOLE IV 500 mg/100 ml 500 MG/100 ML BAG IVPB SCH (06:28)
[2017-11-30 06:32] LABS: BASO # 0.03 K/mm3 (0.0-2.0); BASO % 0.4 % (0.0-3.0); EOS # 0.3 (0.0-0.7); EOS % 4.4 % (1.5-5.0); GRAN # 2.34 (1.4-6.5); HEMOGLOBIN 10.9 g/dL (12.0-16.0); LYMPH # 3.7 (1.2-3.4); LYMPH % 52.5 % (22.0-35.0); MEAN CELL VOLUME 91.8 fl (80.0-105.0); MEAN CORPUSCULAR HGB CONC 31.6 g/dl (31.0-37.0); MEAN PLATELET VOLUME 9.6 fl (7.0-11.0); MONO # 0.7 (0.1-0.6); MONO % 9.7 % (1.0-6.0); RBC 3.76 10^6/uL (3.5-6.1); RED CELL DISTRIBUTION WIDTH 14.5 % (11.5-14.5); WHITE BLOOD COUNT 7.1 10^3/ul (4.5-11.0)
[2017-11-30 07:47] LABS: ALT/SGPT 14 U/L (7-56); AST/SGOT 19 U/L (14-36); BLOOD UREA NITROGEN 18 mg/dL (7-21); CALCIUM 8.7 mg/dL (8.4-10.5); GFR AFRICAN-AMERICAN > 60; GFR NON-AFRICAN AMERICAN > 60
[2017-11-30 08:04] VITALS: PULSE 66; RESP 20; TEMP 97.5; O2SAT 95
--- NOTE | 2017-11-30 08:18 | CP.PCM.PN ---
Subjective - Date & Time of Evaluation Date of Evaluation: 11/30/17 Time of Evaluation: 07:00 - Subjective Subjective: GENERAL SURGERY PROGRESS NOTE FOR DR. NUNES Patient seen and examined at bedside. She complains of DAVID and mild RUQ pain. Objective - Vital Signs/Intake and Output Vital Signs (last 24 hours): Temp Pulse Resp BP Pulse Ox 97.5 F L 66 20 105/53 L 95 11/30/17 08:03 11/30/17 08:03 11/30/17 08:03 11/30/17 08:03 11/30/17 08:03 Intake and Output: 11/30/17 11/30/17 06:59 18:59 Intake Total 960 Balance 960 - Medications Medications: Current Medications Albuterol/Ipratropium (Duoneb 3 Mg/0.5 Mg (3 Ml) Ud) 3 ml INH Q4 PRN PRN Reason: SOB Clonazepam (Klonopin) 0.5 mg PO HS ANGIE PRN Reason: Protocol Last Admin: 11/29/17 21:05 Dose: 0.5 mg Divalproex Sodium (Depakote Dr(*Bid*)) 500 mg PO Q12 [facility]IE PRN Reason: Protocol Last Admin: 11/29/17 21:06 Dose: 500 mg Docusate Sodium (Colace) 200 mg PO HS [facility] Last Admin: 11/29/17 21:06 Dose: 200 mg Enoxaparin Sodium (Lovenox) 40 mg SC DAILY [facility] PRN Reason: Protocol Last Admin: 11/29/17 10:21 Dose: 40 mg Furosemide (Lasix) 20 mg PO DAILY [facility] Sodium Chloride (Sodium Chloride 0.9%) 1,000 mls @ 60 mls/hr IV .[id number] [facility] Last Admin: 11/28/17 17:34 Dose: 60 mls/hr Metronidazole (Flagyl) 500 mg in 100 mls @ 100 mls/hr IVPB Q8 [facility]GIE PRN Reason: Protocol Last Admin: 11/30/17 06:28 Dose: 100 mls/hr Ceftriaxone Sodium (Rocephin 1 Gram Ivpb) 1 gm in 100 mls @ 100 mls/hr IVPB DAILY [facility] PRN Reason: Protocol Last Admin: 11/29/17 10:23 Dose: 100 mls/hr Mirtazapine (Remeron) 15 mg PO HS [facility] Last Admin: 11/29/17 21:06 Dose: 15 mg Morphine Sulfate (Morphine) 0.5 mg IVP Q4H PRN PRN Reason: Pain, severe (8-10) Last Admin: 11/29/17 21:17 Dose: 0.5 mg Lacosamide [Vimpat] (50mg (Home Med)) 100 mg PO BID [facility] Last Admin: 11/29/17 18:01 Dose: 100 mg Ondansetron HCl (Zofran Tab) 4 mg PO Q4H PRN PRN Reason: Nausea/Vomiting Pantoprazole Sodium (Protonix Inj) 40 mg IVP DAILY [facility] Last Admin: 11/29/17 10:22 Dose: 40 mg - Labs Labs: 11/30/17 06:00 11/30/17 07:00 PT 11.8 SECONDS (9.4-12.5) 11/29/17 07:40 INR 1.03 (0.93-1.08) 11/29/17 07:40 APTT 27.8 Seconds (25.1-36.5) 11/29/17 07:40 - Constitutional Appears: Well, Non-toxic, No Acute Distress - Head Exam Head Exam: ATRAUMATIC, NORMAL INSPECTION - Eye Exam Eye Exam: EOMI - Respiratory Exam Respiratory Exam: NORMAL BREATHING PATTERN. absent: Respiratory Distress - Cardiovascular Exam Cardiovascular Exam: +S1, +S2 - GI/Abdominal Exam GI & Abdominal Exam: Soft, Tenderness (mild RUQ tenderness). absent: Distended , Firm, Guarding, Rigid, Rebound - Neurological Exam Neurological Exam: Alert, Awake. absent: Oriented x3 Assessment and Plan - Assessment and Plan (Free Text) Assessment: 87 y/o F with cholecystitis s/p cholecystostomy tube on 11/06 with removal of cholecystostomy tube on 11/28 s/p dislodgment Plan: - Afebrile, VSS, labs WNL - No surgical intervention at this time - Monitor for signs of cholecystitis - Discussed with Dr. Bo Og PGY-4
[2017-11-30] MEDS: LACOSAMIDE 50 MG PO SCH (10:40)
[2017-11-30] MEDS: Divalproex 500 mg DR(BID formulation) PO SCH (10:40)
[2017-11-30] MEDS: Enoxaparin 40 mg Syringe SC SCH (10:41)
[2017-11-30] MEDS: cefTRIAXone 1 gm 1 GM/100 ML BAG IVPB SCH (10:44)
[2017-11-30 10:45] VITALS: BP 105/60
--- NOTE | 2017-11-30 11:28 | CP.PCM.DIS ---
<Darshan Magana - Last Filed: 11/30/17 11:36> Provider - Provider Date of Admission: 11/28/17 15:47 Attending physician: Cruz King MD Primary care physician: Randal Cordova MD Time Spent in preparation of Discharge (in minutes): 35 Hospital Course - Lab Results Lab Results: Micro Results 11/28/17 16:20 Urine Urine Culture - Final 50-100,000 CFU/ML. MULTIPLE SPECIES. SUGGEST REPEAT SPECIMEN. Most Recent Lab Values WBC 7.1 10^3/ul (4.5-11.0) 11/30/17 06:00 RBC 3.76 10^6/uL (3.5-6.1) 11/30/17 06:00 Hgb 10.9 g/dL (12.0-16.0) L 11/30/17 06:00 Hct 34.5 % (36.0-48.0) L 11/30/17 06:00 MCV 91.8 fl (80.0-105.0) 11/30/17 06:00 MCH 29.0 pg (25.0-35.0) 11/30/17 06:00 MCHC 31.6 g/dl (31.0-37.0) 11/30/17 06:00 RDW 14.5 % (11.5-14.5) 11/30/17 06:00 Plt Count 278 10^3/uL (120.0-450.0) 11/30/17 06:00 MPV 9.6 fl (7.0-11.0) 11/30/17 06:00 Gran % 33.0 % (50.0-68.0) L 11/30/17 06:00 Lymph % (Auto) 52.5 % (22.0-35.0) H 11/30/17 06:00 Gonzales % (Auto) 9.7 % (1.0-6.0) H 11/30/17 06:00 Eos % (Auto) 4.4 % (1.5-5.0) 11/30/17 06:00 Baso % (Auto) 0.4 % (0.0-3.0) 11/30/17 06:00 Gran # 2.34 (1.4-6.5) 11/30/17 06:00 Lymph # (Auto) 3.7 (1.2-3.4) H 11/30/17 06:00 Gonzales # (Auto) 0.7 (0.1-0.6) H 11/30/17 06:00 Eos # (Auto) 0.3 (0.0-0.7) 11/30/17 06:00 Baso # (Auto) 0.03 K/mm3 (0.0-2.0) 11/30/17 06:00 PT 11.8 SECONDS (9.4-12.5) 11/29/17 07:40 INR 1.03 (0.93-1.08) 11/29/17 07:40 APTT 27.8 Seconds (25.1-36.5) 11/29/17 07:40 Sodium 143 mmol/L (132-148) 11/30/17 07:00 Potassium 4.5 mmol/L (3.6-5.0) 11/30/17 07:00 Chloride 103 mmol/L (98-107) 11/30/17 07:00 Carbon Dioxide 34 mmol/L (21-33) H 11/30/17 07:00 Anion Gap 11 (10-20) 11/30/17 07:00 BUN 18 mg/dL (7-21) 11/30/17 07:00 Creatinine 0.6 mg/dl (0.7-1.2) L 11/30/17 07:00 Est GFR ( Amer) > 60 11/30/17 07:00 Est GFR (Non-Af Amer) > 60 11/30/17 07:00 Random Glucose 93 mg/dL (70-110) 11/30/17 07:00 Calcium 8.7 mg/dL (8.4-10.5) 11/30/17 07:00 Total Bilirubin 0.1 mg/dL (0.2-1.3) L 11/30/17 07:00 AST 19 U/L (14-36) 11/30/17 07:00 ALT 14 U/L (7-56) 11/30/17 07:00 Alkaline Phosphatase 55 U/L (38-126) 11/30/17 07:00 Total Protein 6.1 g/dL (5.8-8.3) 11/30/17 07:00 Albumin 3.0 g/dL (3.0-4.8) 11/30/17 07:00 Globulin 3.1 gm/dL 11/30/17 07:00 Albumin/Globulin Ratio 1.0 (1.1-1.8) L 11/30/17 07:00 Lipase 30 U/L (23-300) 11/28/17 12:55 Urine Color Colorless (YELLOW) 11/28/17 16:20 Urine Appearance Clear (CLEAR) 11/28/17 16:20 Urine pH 7.5 (4.7-8.0) 11/28/17 16:20 Ur Specific Happy 1.010 (1.005-1.035) 11/28/17 16:20 Urine Protein Negative mg/dL (<30 mg/dL) 11/28/17 16:20 Urine Glucose (UA) Negative mg/dL (NEGATIVE) 11/28/17 16:20 Urine Ketones Negative mg/dL (NEGATIVE) 11/28/17 16:20 Urine Blood Negative (NEGATIVE) 11/28/17 16:20 Urine Nitrate Negative (NEGATIVE) 11/28/17 16:20 Urine Bilirubin Negative (NEGATIVE) 11/28/17 16:20 Urine Urobilinogen 0.2 E.U./dL (<1 E.U./dL) 11/28/17 16:20 Ur Leukocyte Esterase Negative Adalid/uL (NEGATIVE) 11/28/17 16:20 - Hospital Course Hospital Course: Ms. Jones is an 87-year-old female with a past medical history of cholecystitis S/P cholecystostomy tube placement on 11/06/[address] Jimenez, CHF ( EF 59% in 10/2017), hyperlipidemia, seizures (last one in 10/2017), COPD/asthma, recurrent UTI, dementia, hypothyroidism who presented with continued RUQ pain and nausea following the placement of the cholecystostomy tube. On admission, the patient reported that the tube had stopped draining 3 days prior to presentation and Dr. Soriano (Surgery) had recommended that she return to ED for evaluation of patency. In ED, the surgical team evaluated the drain and determined that the tube was dislodged. The patient and family maintained the position that the patient refuses a cholecystectomy. The drain was removed in the ER. The patient was admitted for management and possible replacement of the drain. CT of the abdomen and pelvis was done following the removal of the drain, and showed residual soft tissue inflammatory changes but no discrete drainable collection. The patient remained afebrile with no leukocytosis or shift, ID was consulted and the patient was started on empiric Flagyl and Rocephin. All antibiotics were discontinued when no signs of infection were noted. On morning of discharge, the patient is complaining of some nausea that is relieved with Zofran, but denies other complaints of severe abdominal pain, vomiting, chest pain or shortness of breath, or leg pain. Patient will return to [facility] and will not require any antibiotics. Due to episodes of hypotension, metoprolol and furosemide were also discontinued. The patient is medically optimized for transport and discharge. All her questions were answered and patient is understanding of discharge plan. Discharge Exam - Head Exam Head Exam: ATRAUMATIC, NORMAL INSPECTION - Eye Exam Eye Exam: Normal appearance - ENT Exam ENT Exam: Mucous Membranes Moist - Respiratory Exam Respiratory Exam: NORMAL BREATHING PATTERN. absent: Rales, Rhonchi, Wheezes, Respiratory Distress - Cardiovascular Exam Cardiovascular Exam: RRR, +S1, +S2 - GI/Abdominal Exam GI & Abdominal Exam: Normal Bowel Sounds, Soft, Tenderness (diffuse, mild). absent: Distended, Guarding - Extremities Exam Extremities exam: normal inspection - Back Exam Back exam: NORMAL INSPECTION - Neurological Exam Neurological exam: Alert - Psychiatric Exam Psychiatric exam: Normal Mood - Skin Skin Exam: Normal Color Discharge Plan - Follow Up Plan Condition: STABLE Disposition: REHAB FACILITY/REHAB UNIT Instructions: Cholecystitis (DC), Cholecystitis (GEN) Additional Instructions: Please note that we have stopped two of your home medications - Metoprolol Tartrate (Lopressor) and Furosemide (Lasix). Please follow up with a pack out operator regarding your diagnosis of CHF Please discontinue taking antibiotics. Should your symptoms worsen or persist please return to the ED Referrals: Randal Cordova MD [Primary Care Provider] - <Cruz King - Last Filed: 12/01/17 13:40> Provider - Provider Date of Admission: 11/28/17 15:47 Attending physician: Cruz King MD Primary care physician: Randal Cordova MD Hospital Course - Lab Results Lab Results: Micro Results 11/28/17 16:20 Urine Urine Culture - Final 50-100,000 CFU/ML. MULTIPLE SPECIES. SUGGEST REPEAT SPECIMEN. Most Recent Lab Values WBC 7.1 10^3/ul (4.5-11.0) 11/30/17 06:00 RBC 3.76 10^6/uL (3.5-6.1) 11/30/17 06:00 Hgb 10.9 g/dL (12.0-16.0) L 11/30/17 06:00 Hct 34.5 % (36.0-48.0) L 11/30/17 06:00 MCV 91.8 fl (80.0-105.0) 11/30/17 06:00 MCH 29.0 pg (25.0-35.0) 11/30/17 06:00 MCHC 31.6 g/dl (31.0-37.0) 11/30/17 06:00 RDW 14.5 % (11.5-14.5) 11/30/17 06:00 Plt Count 278 10^3/uL (120.0-450.0) 11/30/17 06:00 MPV 9.6 fl (7.0-11.0) 11/30/17 06:00 Gran % 33.0 % (50.0-68.0) L 11/30/17 06:00 Lymph % (Auto) 52.5 % (22.0-35.0) H 11/30/17 06:00 Gonzales % (Auto) 9.7 % (1.0-6.0) H 11/30/17 06:00 Eos % (Auto) 4.4 % (1.5-5.0) 11/30/17 06:00 Baso % (Auto) 0.4 % (0.0-3.0) 11/30/17 06:00 Gran # 2.34 (1.4-6.5) 11/30/17 06:00 Lymph # (Auto) 3.7 (1.2-3.4) H 11/30/17 06:00 Gonzales # (Auto) 0.7 (0.1-0.6) H 11/30/17 06:00 Eos # (Auto) 0.3 (0.0-0.7) 11/30/17 06:00 Baso # (Auto) 0.03 K/mm3 (0.0-2.0) 11/30/17 06:00 PT 11.8 SECONDS (9.4-12.5) 11/29/17 07:40 INR 1.03 (0.93-1.08) 11/29/17 07:40 APTT 27.8 Seconds (25.1-36.5) 11/29/17 07:40 Sodium 143 mmol/L (132-148) 11/30/17 07:00 Potassium 4.5 mmol/L (3.6-5.0) 11/30/17 07:00 Chloride 103 mmol/L (98-107) 11/30/17 07:00 Carbon Dioxide 34 mmol/L (21-33) H 11/30/17 07:00 Anion Gap 11 (10-20) 11/30/17 07:00 BUN 18 mg/dL (7-21) 11/30/17 07:00 Creatinine 0.6 mg/dl (0.7-1.2) L 11/30/17 07:00 Est GFR ( Amer) > 60 11/30/17 07:00 Est GFR (Non-Af Amer) > 60 11/30/17 07:00 Random Glucose 93 mg/dL (70-110) 11/30/17 07:00 Calcium 8.7 mg/dL (8.4-10.5) 11/30/17 07:00 Total Bilirubin 0.1 mg/dL (0.2-1.3) L 11/30/17 07:00 AST 19 U/L (14-36) 11/30/17 07:00 ALT 14 U/L (7-56) 11/30/17 07:00 Alkaline Phosphatase 55 U/L (38-126) 11/30/17 07:00 Total Protein 6.1 g/dL (5.8-8.3) 11/30/17 07:00 Albumin 3.0 g/dL (3.0-4.8) 11/30/17 07:00 Globulin 3.1 gm/dL 11/30/17 07:00 Albumin/Globulin Ratio 1.0 (1.1-1.8) L 11/30/17 07:00 Lipase 30 U/L (23-300) 11/28/17 12:55 Urine Color Colorless (YELLOW) 11/28/17 16:20 Urine Appearance Clear (CLEAR) 11/28/17 16:20 Urine pH 7.5 (4.7-8.0) 11/28/17 16:20 Ur Specific Happy 1.010 (1.005-1.035) 11/28/17 16:20 Urine Protein Negative mg/dL (<30 mg/dL) 11/28/17 16:20 Urine Glucose (UA) Negative mg/dL (NEGATIVE) 11/28/17 16:20 Urine Ketones Negative mg/dL (NEGATIVE) 11/28/17 16:20 Urine Blood Negative (NEGATIVE) 11/28/17 16:20 Urine Nitrate Negative (NEGATIVE) 11/28/17 16:20 Urine Bilirubin Negative (NEGATIVE) 11/28/17 16:20 Urine Urobilinogen 0.2 E.U./dL (<1 E.U./dL) 11/28/17 16:20 Ur Leukocyte Esterase Negative Adalid/uL (NEGATIVE) 11/28/17 16:20 Attending/Attestation - Attestation I have personally seen and examined this patient.: Yes I have fully participated in the care of the patient.: Yes I have reviewed all pertinent clinical information, including history, physical exam and plan: Yes Notes (Text): 12/01/17 13:39 Medical record note made by the resident after discussion with my direction and input after the patient was personally seen and examined by me. I have reviewed the chart and agree that the record accurately reflects by personal performance of the history, physical exam, data review, and medical decision-making, in the course for the patient. I have also personally directed the plan of care. 87 F with PMH of cholelithiasis, CHF , COPD/Asthma, recurrent UTI, seizure disorder, SP cholycystostomy last month for acute cholycystitis is admitted with malfunctioning cholycystostomy tube which has been removed in ER by surgery.CT scan of abdomen and Pelvis was reviewed.Patient abdominal pain is better.Theree is no plan for any intervention as per IR and surgery.Blood cultures are negative for any growth.Antibiotics has been discontinued as recommended by surgery. Blood pressure was running low, Metoprolol and lasix has been discontinued. Patient is tolerating food. She will be discharged back to [place]. Prognosis is guarded.
--- NOTE | 2017-11-30 17:28 | CP.PCM.PN ---
Subjective - Date & Time of Evaluation Date of Evaluation: 11/30/17 Time of Evaluation: 11:00 - Subjective Subjective: Infectious Disease Follow Up: November 30, 2017 87 yo female with past medical history that includes cholelithiasis, recent episode of cholecystitis s/p cholecystotomy tube, CHF, COPD, depression, dementia, seizure disorder who was brought in by EMS to [facility] from rehab facility for worsening abdominal pain. Patient was recently in the hospital for cholecystitis when she had cholecystotomy tube placed. Patient had drainage from cholecystostomy tube placement but that stopped draining 3 days ago. Infectious Disease called for antibiotic management. Objective - Vital Signs/Intake and Output Vital Signs (last 24 hours): Temp Pulse Resp BP Pulse Ox 97.5 F L 66 20 105/60 95 11/30/17 08:03 11/30/17 08:03 11/30/17 08:03 11/30/17 10:41 11/30/17 08:03 Intake and Output: 11/30/17 11/30/17 06:59 18:59 Intake Total 960 240 Balance 960 240 - Labs Labs: 11/30/17 06:00 11/30/17 07:00 PT 11.8 SECONDS (9.4-12.5) 11/29/17 07:40 INR 1.03 (0.93-1.08) 11/29/17 07:40 APTT 27.8 Seconds (25.1-36.5) 11/29/17 07:40 - Constitutional Appears: Non-toxic, No Acute Distress, Chronically Ill - Head Exam Head Exam: ATRAUMATIC, NORMOCEPHALIC - Eye Exam Eye Exam: EOMI, PERRL Pupil Exam: NORMAL ACCOMODATION, PERRL - ENT Exam ENT Exam: Mucous Membranes Moist, Normal External Ear Exam, TM's Normal Bilaterally - Neck Exam Neck Exam: Full ROM, Normal Inspection - Respiratory Exam Respiratory Exam: Clear to Ausculation Bilateral, NORMAL BREATHING PATTERN. absent: Rales, Rhonchi, Wheezes - Cardiovascular Exam Cardiovascular Exam: REGULAR RHYTHM, RRR, +S1, +S2 - GI/Abdominal Exam GI & Abdominal Exam: Soft, Normal Bowel Sounds. absent: Distended, Tenderness - Extremities Exam Extremities Exam: Full ROM, Normal Inspection - Neurological Exam Neurological Exam: Alert, Awake, CN II-XII Intact Additional comments: AAOx2, no acute distress, Hx of dementia. - Psychiatric Exam Psychiatric exam: Normal Affect, Normal Mood - Skin Skin Exam: Intact, Normal Color Assessment and Plan - Assessment and Plan (Free Text) Assessment: 87 yo Female with past medical history that includes cholelithiasis, recent episode of cholecystitis s/p cholecystotomy tube, CHF, COPD, depression, dementia, seizure disorder who was brought in by EMS to [facility] from rehab facility for worsening abdominal pain. Patient was recently in the hospital for cholecystitis when she had cholecystotomy tube placed. Patient had drainage from cholecystostomy tube placement but that stopped draining 3 days ago. Cholecystostomy tube removed in ER by Dr. Jimenez from . No leukocytosis or shift. Fluoroquinolone allergy (rash on moxifloxacin). Urine and blood send for cultures. Possible chronic pain in the abdomen. Started on Flagyl. On Rocephin for now until cutlures return. CT of Abd/Pelvis was relatively unremarkable. Supportive care. Urine cultures with multiple organisms. Day 3 of Rocephin. For discharge back to [facility]. Spoke with Dr. King. Thank you for allowing me to participate in the care of the patient, we will follow with you.
== END 2017-11-30 14:38 | DRG 921 ==
LOC: ED 10:52 → ERH 15:47 → 3RNO 18:36
PROVIDERS: ADMIT Internal Medicine; ATTEND Internal Medicine
DX: T85.520A Displacement of bile duct prosthesis, initial encounter (principal); E03.9 Hypothyroidism, unspecified; E78.5 Hyperlipidemia, unspecified; F03.90 Unspecified dementia, unspecified severity, without behavioral disturbance, psychotic disturbance, mood disturbance, and anxiety; I50.9 Heart failure, unspecified; J43.9 Emphysema, unspecified; G40.909 Epilepsy, unspecified, not intractable, without status epilepticus; Z87.440 Personal history of urinary (tract) infections; Z87.891 Personal history of nicotine dependence; Z79.899 Other long term (current) drug therapy